=== PATIENT | male | born 1955 | race Two or more races ===

== ENCOUNTER 2018-09-14 10:26 | Emergency (ER) | payer OTHER ==
[2018-09-14 11:17] VITALS: BP 136/72; PULSE 68; TEMP 98.1; BMI 28.1
--- NOTE | 2018-09-14 11:28 | PDOC ---
History of Present Illness - General Chief Complaint: Rash Stated Complaint: WOUND Time Seen by Provider: 09/14/18 11:02 - History of Present Illness Initial Comments: 09/14/18 11:32 63-year-old male without comorbidities presents for evaluation of inability to retract the foreskin with painful areas at the foreskin. He has no systemic symptoms and no inability to urinate or dysuria. Past History - Past Medical History Allergies/Adverse Reactions: Allergies Allergy/AdvReac Type Severity Reaction Status Date / Time No Known Allergies Allergy Verified 09/14/18 11:04 Home Medications: Ambulatory Orders Desonide 60 gm TP BID 5 Days #1 cream..g. 09/14/18 Cardiac Disorders: No COPD: No CHF: No Diabetes: Yes (borderline) - Surgical History Cardiac Surgery: No - Immunization History Td Vaccination: No Immunization Up to Date: No (needs tetanus) - Suicide/Smoking/Psychosocial Hx Smoking Status: No Smoking History: Current some day smoker Have you smoked in the past 12 months: No Number of Cigarettes Smoked Daily: 0 Information on smoking cessation initiated: No Hx Alcohol Use: No Drug/Substance Use Hx: No Review of Systems - Review of Systems : Yes: See HPI. No: Burning, Dysuria, Discharge, Incontinence, Pain *Physical Exam - Vital Signs Last Vital Signs Temp Pulse Resp BP Pulse Ox 98.1 F 68 16 136/72 98 09/14/18 10:33 09/14/18 10:33 09/14/18 10:33 09/14/18 10:33 09/14/18 10:33 - Physical Exam Comments: 09/14/18 11:32 External genitalia appears normal. There are superficial excoriations at the dorsum of the foreskin which is unable to be retracted over the glans penis normal skin color and temperature no indication of infection Moderate Sedation - Procedure Monitoring Vital Signs: Procedure Monitoring Vital Signs Temperature 98.1 F 09/14/18 10:33 Pulse Rate 68 09/14/18 10:33 Respiratory Rate 16 09/14/18 10:33 Blood Pressure 136/72 09/14/18 10:33 O2 Sat by Pulse Oximetry (%) 98 09/14/18 10:33 Medical Decision Making - Medical Decision Making 09/14/18 11:21 Urology called d/w Dr Rizo f/u as out pt with steroid cream from ER *DC/Admit/Observation/Transfer Diagnosis at time of Disposition: Phimosis - Discharge Dispostion Disposition: HOME Condition at time of disposition: Stable Decision to Admit order: No - Prescriptions Prescriptions: Desonide 60 gm TP BID 5 Days #1 cream..g. - Referrals Referrals: Abdon Zhang MD., [Staff Physician] - - Patient Instructions Additional Instructions: Please use a steroid cream as directed and follow up with urology in 1-2 days for further evaluation and treatment options. Return to the emergency room should symptoms worsen or if you are unable to urinate. Please also follow-up with your primary care physician there is glucose in the urine which may indicate an onset of diabetes. - Post Discharge Activity
[2018-09-14 11:38] LABS: URINE APPEARANCE CLEAR; URINE BILIRUBIN NEGATIVE (<2.0 mg/dL); URINE COLOR LTYELLOW; URINE GLUCOSE (UA) 3+ (NEGATIVE); URINE KETONE NEGATIVE (NEGATIVE); URINE LEUK ESTERASE NEGATIVE (NEGATIVE); URINE NITRITE NEGATIVE (NEGATIVE); URINE PROTEIN NEGATIVE (NEGATIVE); URINE UROBILINOGEN NEGATIVE mg/dL (0.2-1.0)
== END 2018-09-14 11:57 | disposition home or self-care (01) ==
LOC: JERFT 10:26
DX: N47.1 Phimosis (principal)
CPT/HCPCS: 81003; 87086; 87186; 99281-25

== ENCOUNTER 2019-03-21 08:15 | Emergency (ER) | payer OTHER ==
[2019-03-21 08:23] VITALS: BP 135/68; PULSE 71; TEMP 98.3; BMI 28.1
[2019-03-21] MEDS ORDERED: SUCRALFATE 1 GM/10 ML UNIT DOSE CUPS PO ONE (08:33)
[2019-03-21] MEDS ORDERED: MAG HYDROX/AL HYDROX/SIMETH 30 ML UNIT-DOSE CUP PO ONE (08:33)
[2019-03-21] MEDS ORDERED: FAMOTIDINE 20 MG/50 ML IVPB 20 MG/50 ML MG IVPB ONE ×2 (08:33→08:41)
[2019-03-21] MEDS ORDERED: MAG HYDROX/AL HYDROX/SIMETH 30 ML UNIT-DOSE CUP ONE (08:41)
[2019-03-21] MEDS ORDERED: SUCRALFATE 1 GM TABLET (FP) ONE (08:41)
--- NOTE | 2019-03-21 08:48 | PDOC ---
History of Present Illness - History of Present Illness Initial Comments: 03/21/19 08:44 64 yo M with h/o DM, BACILIO who p/w retrosternal chest discomfort. Patient reports acute episode of severe, burning, unremitting, retrosternal chest discomfort. Pain worse with PO food intake, non radiating, non positional. Pain similar to pain in past. Has longstanding h/o GERD. Not on medication. Does not f/w GI. Also endorses "dry throat." Patient denies MONTESINOS, vision change, palpitations, cough, wheezing, orthopena, PND , leg swelling/pain, N/V, F,C, SOB, urinary complaints, hematuria, BPR, diarrhea , constipation, lightheadedness, weakness, sensory changes. PMHx: as noted above. Denies CAD/HI, stent placement, CABG, endoscopy, PE/DVT ROS: as noted SHx: tobacco use 20+ years. Denies Etoh, IVDA. Allergies: NKDA <Jax Bonilla - Last Filed: 03/21/19 10:34> <Marianna Blankenship - Last Filed: 03/21/19 10:43> - General Chief Complaint: Chest Pain Stated Complaint: CHEST PAIN Time Seen by Provider: 03/21/19 08:33 Past History - Past Medical History Cardiac Disorders: No COPD: No CHF: No Diabetes: Yes (borderline) - Surgical History Cardiac Surgery: No - Immunization History Td Vaccination: No Immunization Up to Date: No (needs tetanus) - Suicide/Smoking/Psychosocial Hx Smoking Status: No Smoking History: Never smoked Have you smoked in the past 12 months: No Number of Cigarettes Smoked Daily: 0 Hx Alcohol Use: No Drug/Substance Use Hx: No <Jax Bonilla - Last Filed: 03/21/19 10:34> <Marianna Blankenship - Last Filed: 03/21/19 10:43> - Past Medical History Allergies/Adverse Reactions: Allergies Allergy/AdvReac Type Severity Reaction Status Date / Time No Known Allergies Allergy Verified 03/21/19 08:24 Home Medications: Ambulatory Orders Desonide 60 gm TP BID 5 Days #1 cream..g. 09/14/18 Ranitidine [Zantac -] 150 mg PO BID PRN #30 tablet MDD 2 tab 03/21/19 Review of Systems - Review of Systems Comments:: 03/21/19 08:45 GENERAL/CONSTITUTIONAL: No fever or chills. No weakness. HEAD, EYES, EARS, NOSE AND THROAT: No change in vision. No ear pain or discharge. No sore throat. CARDIOVASCULAR: + chest pain. no shortness of breath RESPIRATORY: No cough, wheezing, or hemoptysis. GASTROINTESTINAL: No nausea, vomiting, diarrhea or constipation. GENITOURINARY: No dysuria, frequency, or change in urination. MUSCULOSKELETAL: No joint or muscle swelling or pain. No neck or back pain. SKIN: No rash NEUROLOGIC: No headache, vertigo, loss of consciousness, or change in strength/ sensation. ENDOCRINE: No increased thirst. No abnormal weight change HEMATOLOGIC/LYMPHATIC: No anemia, easy bleeding, or history of blood clots. ALLERGIC/IMMUNOLOGIC: No hives or skin allergy. <Jax Bonilla - Last Filed: 03/21/19 10:34> *Physical Exam - Vital Signs Last Vital Signs Temp Pulse Resp BP Pulse Ox 98.3 F 71 18 135/68 99 03/21/19 08:22 03/21/19 08:22 03/21/19 08:22 03/21/19 08:22 03/21/19 08:22 - Physical Exam Comments: 03/21/19 08:45 GENERAL: Awake, alert, and fully oriented, in no acute distress HEAD: No signs of trauma, normocephalic, atraumatic EYES: PERRLA, EOMI, sclera anicteric, conjunctiva clear ENT: Hearing grossly normal, nares patent, oropharynx clear without exudates. Moist mucosa NECK: Normal ROM, supple, no lymphadenopathy, JVD, or masses LUNGS: No distress, speaks full sentences, clear to auscultation bilaterally HEART: Regular rate and rhythm, normal S1 and S2, no murmurs, rubs or gallops, peripheral pulses normal and equal bilaterally. ABDOMEN: Soft, nontender, normoactive bowel sounds. No guarding, no rebound. No masses EXTREMITIES : Normal inspection, Normal range of motion, no edema. No clubbing or cyanosis. NEUROLOGICAL: Cranial nerves II through XII grossly intact. Normal speech, normal gait, no focal sensorimotor deficits SKIN: Warm, Dry, normal turgor, no rashes or lesions noted <Jax Bonilla - Last Filed: 03/21/19 10:34> - Vital Signs Last Vital Signs Temp Pulse Resp BP Pulse Ox 98.3 F 71 18 135/68 99 03/21/19 08:22 03/21/19 08:22 03/21/19 08:22 03/21/19 08:22 03/21/19 08:22 <PattieMarianna Hai - Last Filed: 03/21/19 10:43> ED Treatment Course - LABORATORY CBC & Chemistry Diagram: 03/21/19 08:38 03/21/19 08:38 - RADIOLOGY Radiology Studies Ordered: Category Date Time Status CXRPORT [CHEST X-RAY PORTABLE*] [RAD] Stat Radiology 03/21/19 08:33 Ordered - Medications Given in the ED: ED Medications Discontinued Medications Generic Name Dose Route Start Last Admin Trade Name Freq PRN Reason Stop Dose Admin Al Hydroxide/Mg Hydroxide 30 ml 03/21/19 08:33 03/21/19 08:42 Mylanta Oral Suspension - PO 03/21/19 08:34 30 ml ONCE ONE Administration Sucralfate 1 gm 03/21/19 08:33 03/21/19 08:42 Carafate Oral Suspension - PO 03/21/19 08:34 1 gm ONCE ONE Administration <Jax Bonilla - Last Filed: 03/21/19 10:34> - LABORATORY CBC & Chemistry Diagram: 03/21/19 08:38 03/21/19 08:38 - ADDITIONAL ORDERS Additional order review: Laboratory Results 03/21/19 08:38 Sodium 141 Potassium 4.3 Chloride 112 H Carbon Dioxide 23 Anion Gap 7 L BUN 18.2 H Creatinine 0.8 Est GFR (CKD-EPI)AfAm 107.89 Est GFR (CKD-EPI)NonAf 93.09 Random Glucose 273 H Calcium 8.3 L Total Bilirubin 0.7 AST 25 ALT 24 Alkaline Phosphatase 63 Creatine Kinase 206 Creatine Kinase Index 1.2 CK-MB (CK-2) 2.5 Troponin I < 0.02 Total Protein 6.5 Albumin 3.3 L 03/21/19 08:38 RBC 4.38 MCV 89.2 MCHC 34.3 RDW 13.1 MPV 9.1 D Neutrophils % 64.5 Lymphocytes % 23.1 Monocytes % 9.1 Eosinophils % 2.4 Basophils % 0.9 - Medications Given in the ED: ED Medications Discontinued Medications Generic Name Dose Route Start Last Admin Trade Name Dylan PRN Reason Stop Dose Admin Al Hydroxide/Mg Hydroxide 30 ml 03/21/19 08:33 03/21/19 08:42 Mylanta Oral Suspension - PO 03/21/19 08:34 30 ml ONCE ONE Administration Famotidine/Sodium Chloride 20 mg in 50 mls @ 100 mls/hr 03/21/19 08:33 08:42 Pepcid 20 Mg Premixed Ivpb - IVPB 03/21/19 09:02 100 mls/hr ONCE ONE Administration Sucralfate 1 gm 03/21/19 08:33 03/21/19 08:42 Carafate Oral Suspension - PO 03/21/19 08:34 1 gm ONCE ONE Administration <Marianna Blankenship - Last Filed: 03/21/19 10:43> Medical Decision Making - Medical Decision Making 03/21/19 08:45 64 yo M with h/o DM, BACILIO who p/w retrosternal chest discomfort/burning. Vitals wnl, AF, A&Ox3. Physical exam unremarkable. ACS/HI r/o. R/o PNA. Low risk PE based on Wells criteria. DDx: GERD/Esophagitis, gastriits, pancreaitits, biliary dz., pleural effusion. Physical exam unremarkable. BP equal symmetric BL UE. Patient neurologically intact. Provide analgesic control, reassess. Ed Course: 03/21/19 10:07 Laboratory Tests 03/21/19 03/21/19 08:38 08:38 WBC 6.2 Hgb 13.4 Hct 39.1 Plt Count 200 BUN 18.2 H Est GFR (CKD-EPI)AfAm 107.89 Troponin I < 0.02 03/21/19 10:11 EKG: NSR with absent YOBANI, STD. Nml interval duration and axis. Nml R wave progression. Absent Q waves. CXR: No acute pathology 03/21/19 10:15 Advised to f/u GI symptoms improved with Famotidine, Maloox, Carafate tolerating PO intake Patient stable for d/c with return precautions <Jax Bonilla - Last Filed: 03/21/19 10:34> *DC/Admit/Observation/Transfer <Jax Bonilla - Last Filed: 03/21/19 10:34> <Marianna Blankenship - Last Filed: 03/21/19 10:43> Diagnosis at time of Disposition: Epigastric abdominal pain - Discharge Dispostion Condition at time of disposition: Stable - Prescriptions Prescriptions: Ranitidine [Zantac -] 150 mg PO BID PRN #30 tablet MDD 2 tab PRN Reason: Mild Pain - Referrals Referrals: Siri Livingston MD [Primary Care Provider] - Reed Page MD [Staff Physician] - Eduardo Pritchett DO [Staff Physician] - Jostin Barba MD [Staff Physician] - Venancio Beltrán MD [Staff Physician] - Robinson Hernández MD [Staff Physician] - - Patient Instructions Printed Discharge Instructions: [place] Diet, DI for Gastritis, DI for Atypical Chest Pain Additional Instructions: Please return to the emergency department with any new or worsening symptoms or concerns. Please follow up with your core blower and primary care physician within 72 hours. Can take Ranitidine twice a day as needed for symptoms. You may also take pepcid daily and maalox or mylanta three to four times a day with your meals for the heart burn symptoms Avoid spicy or fatty foods. Drink plenty of fluids, soups and broth. Important to stay hydrated. Avoid triggers that could precipitate the abdominal pain, nausea and vomiting. This could be reflux, gastritis or viral infection that should self resolve with time Follow up with a core blower and primary doctor if symptoms persist. - Post Discharge Activity
[2019-03-21 09:07] LABS: BASO % 0.9 % (0-2.0); EOS % 2.4 % (0-4.5); HEMATOCRIT 39.1 % (35.4-49); HEMOGLOBIN 13.4 GM/dL (11.7-16.9); LYMPH % 23.1 % (8-40); MCH 30.6 pg (25.7-33.7); MCHC 34.3 g/dl (32.0-35.9); MEAN CELL VOLUME 89.2 fl (80-96); MEAN PLT VOLUME 9.1 fl (7.5-11.1); MONO % 9.1 % (3.8-10.2); NEUT % 64.5 % (42.8-82.8); RBC 4.38 M/mm3 (4.00-5.60); RDW 13.1 % (11.9-15.9); WHITE BLOOD COUNT 6.2 K/mm3 (4.0-10.0)
[2019-03-21 09:34] LABS: PLATELET COUNT 200 K/MM3 (134-434)
[2019-03-21 09:40] LABS: ALBUMIN 3.3 g/dl (3.4-5.0); ALK PHOS 63 U/L (45-117); ANION GAP 7 MMOL/L (8-16); BILIRUBIN,TOTAL 0.7 mg/dL (0.2-1); BLOOD UREA NITROGEN 18.2 mg/dL (7-18); CALCIUM 8.3 mg/dL (8.5-10.1); CHLORIDE 112 mmol/L (98-107); CO2 23 mmol/L (21-32); CREATININE 0.8 mg/dL (0.55-1.3); GLUCOSE,RANDOM 273 mg/dL (74-106); POTASSIUM 4.3 mmol/L (3.5-5.1); SGOT/AST 25 U/L (15-37); SGPT/ALT 24 U/L (13-61); SODIUM 141 mmol/L (136-145); TOT PROT 6.5 g/dl (6.4-8.2)
--- NOTE | 2019-03-21 10:43 | PDOC ---
Documentation entered by Veronika Reich SCRIBE, acting as scribe for Marianna Blankenship MD. Marianna Blankenship MD: This documentation has been prepared by the scribe, Veronika Reich SCRIBE, under my direction and personally reviewed by me in its entirety. I confirm that the documentation accurately reflects all work, treatment, procedures, and medical decision making performed by me. Attending Attestation - Resident Resident Name: Oziel Bonillason - ED Attending Attestation I have performed the following: I have examined & evaluated the patient, The case was reviewed & discussed with the resident, I agree w/resident's findings & plan, Exceptions are as noted - HPI HPI: 03/21/19 10:34 The patient is a 64-year-old male, with a past medical history of DM and BACILIO, who presents to the ED with substernal chest pain/epigastric pain beginning last night in the evening. The patient describes the pain as constant, burning in sensation, with radiation up to his throat, and exacerbated with food intake. He has experienced similar symptoms in the past, but never this severe. He reports he has a history of GERD, but is not on any medications. Allergies: NKDA Social History: Current smoker (20+ years). Denies any alcohol or drug use. 03/21/19 10:37 - Physicial Exam PE: 03/21/19 10:35 NAD, well appearing, EOMI, PERRL, MMM, nl conjunctiva, anicteric; oropharynx clear, neck supple. lungs clear, RRR, abdomen soft nontender. Back nontender. ROSSI x4, no focal neuro deficits. No peripheral edema. normal color for ethnicity , WWP. 03/21/19 10:37 - Medical Decision Making 03/21/19 10:37 See HPI for details. Prior notes reviewed, including admissions, discharges and consultations. Vital signs reviewed, wnl. DDx abdominal pain: Renal colic, biliary colic, metabolic/electrolyte derangements. GERD, PUD, esophageal spasm, pancreatitis, hepatitis, ACS, angina, arrhythmia laboratory results and imaging reviewed, basic labs and lytes wnl, LFTs/lipase_ normal CXR_no acute chest pathology Cardiac panel_negative, reassuring, as sx >6 hours and resolved, doubt cardiac EKG normal sinus rhythm at 70bpm, no interval abnormalities, narrow QRS, ST and T wave segments and morphology normal. ED course -interventions: GI cocktail, fluids and reassess feels improved clinically, abdomen soft NTND, benign. no cp, heart score low, one trop sufficient given duration and improvement. supportive care, GERD precautions and diet and GI followup for EGD/further testing in case of ulcers, spasms/stricture, obstruction. Pt to be discharged in stable condition. Patient and family made aware of clinical impression, treatment recommendations and disposition plan, return precautions discussed (including but not limited to new or persistent/worsening symptoms, pain, fevers, or signs of infection, chest pain, respiratory distress , inability to tolerate oral intake, dehydration, syncope, or neurologic changes ). Follow up with PMD and/or GI specialist as recommended, follow up information provided, take medications as instructed for duration of time. continue with supportive care, avoid triggers and precipitants. All questions answered to patient's satisfaction and expressed understanding and comfort with this. At the time of discharge, the patient is alert, clinically improved, tolerating po and verbalizes understanding of instructions, satisfied with the care received and felt comfortable with the plan. Patient does not suffer from an acute life-threatening medical condition at this time and is safe for outpatient follow-up. 03/21/19 10:39 Heart Score/ECG Review #1 ECG reviewed & interpreted by me at: 08:10 General ECG Interpretation: Sinus Rhythm, Normal Rate, Normal Intervals 03/21/19 10:38 EKG normal sinus rhythm at 70bpm, no interval abnormalities, narrow QRS, ST and T wave segments and morphology normal.
--- NOTE | 2019-03-22 00:16 | EKG ---
Test Reason : Blood Pressure : / mmHG Vent. Rate : 070 BPM Atrial Rate : 070 BPM P-R Int : 138 ms QRS Dur : 100 ms QT Int : 408 ms P-R-T Axes : 074 075 071 degrees QTc Int : 440 ms POOR DATA QUALITY, INTERPRETATION MAY BE ADVERSELY AFFECTED NORMAL SINUS RHYTHM NORMAL ECG NO PREVIOUS ECGS AVAILABLE Confirmed by MD Miles, Reggie ([id number]) on 03/22/2019 12:15:53 AM Referred By: Confirmed By:Reggie Aquino MD
== END 2019-03-21 10:47 | disposition home or self-care (01) ==
LOC: JER 08:15
PROC: 3E033GC Introduction of Other Therapeutic Substance into Peripheral Vein, Percutaneous Approach (ICD-10-PCS; principal; 2019-03-21)
DX: R10.13 Epigastric pain (principal); E11.9 Type 2 diabetes mellitus without complications; G47.33 Obstructive sleep apnea (adult) (pediatric)
CPT/HCPCS: 36415; 71045-TC-FY; 80053; 82550; 82553; 84484; 85025; 93005; 93010; 96365; 99284-25

== ENCOUNTER 2020-05-31 15:51 | Emergency (ER) | payer OTHER ==
--- NOTE | 2020-05-31 16:09 | PDOC ---
Rapid Medical Evaluation Time Seen by Provider: 05/31/20 16:05 Medical Evaluation: Allergies Allergy/AdvReac Type Severity Reaction Status Date / Time No Known Allergies Allergy Verified 05/31/20 16:06 05/31/20 16:07 I performed a brief in-person evaluation of this patient. Pt is a 65 y/o male who presents with penile swelling. He states he has some suprapubic pain as well. His partner was just diagnosed with papilloma. He would like to be tested for HIV. Pertinent physical exam findings: Mild suprapubic abdominal tenderness I have ordered the following: ua, ucx, gc/chlamydia, hiv Patient to proceed to ED for further evaluation. Discharge Disposition - Diagnosis Penile swelling - Referrals - Patient Instructions - Post Discharge Activity
[2020-05-31] MEDS ORDERED: AZITHROMYCIN 250 MG TABLET PO ONE (16:15)
[2020-05-31 16:29] VITALS: BP 164/89; PULSE 72; TEMP 98.9; BMI 28.1
[2020-05-31] MEDS ORDERED: AZITHROMYCIN 250 MG TABLET ONE (16:32)
[2020-05-31] MEDS ORDERED: LIDOCAINE HCL 1%, 10 MG/ML (20ML VIAL) ONE (16:33)
[2020-05-31 17:24] LABS: EPI CELLS 10 /uL (0-25.1); HYALINE CASTS 1 /uL (0-3.1); URINE APPEARANCE CLEAR; URINE BACTERIA 119 /uL (0-1359); URINE BILIRUBIN NEGATIVE (NEGATIVE); URINE COLOR YELLOW; URINE GLUCOSE (UA) 3+ (NEGATIVE); URINE KETONE TRACE (NEGATIVE); URINE LEUK ESTERASE NEGATIVE (NEGATIVE); URINE NITRITE NEGATIVE (NEGATIVE); URINE PROTEIN 1+ (NEGATIVE); URINE RBC 7 /uL (0-23.9); URINE WBC 40 /uL (0-25.8)
[2020-05-31 17:57] LABS: URINE CRYSTALS MODERATE CA OX /hpf
--- NOTE | 2020-05-31 18:44 | PDOC ---
History of Present Illness - General Chief Complaint: Penile Drainage Stated Complaint: STD testing Time Seen by Provider: 05/31/20 16:05 - History of Present Illness Initial Comments: 05/31/20 18:40 65-year-old male with a past medical history of diabetes presents for evaluation of penis pain. His partner was diagnosed with HPV. He has no dysuria concerned about STDs and has complaints of multiple excoriations around the penis Past History - Medical History Allergies/Adverse Reactions: Allergies Allergy/AdvReac Type Severity Reaction Status Date / Time No Known Allergies Allergy Verified 05/31/20 16:07 Home Medications: Ambulatory Orders Desonide 60 gm TP BID 5 Days #1 cream..g. 09/14/18 Ranitidine [Zantac -] 150 mg PO BID PRN #30 tablet MDD 2 tab 03/21/19 Dextran 70/Hypromellose [Artificials Tears Drops] 30 ml OP TID PRN #1 drops 12/09/19 Ocular Lubricant Ophth Oint [Lacri-Lube Eye Ointment -] 1 applic TP DAILY #1 tube 12/09/19 Valacyclovir HCl [Valtrex -] 1,000 mg PO TID 7 Days #21 tablet 12/09/19 predniSONE [Deltasone -] 60 mg PO DAILY #21 tablet 12/09/19 Valacyclovir HCl [Valtrex -] 1,000 mg PO TID 7 Days #21 tablet 05/31/20 Cardiac Disorders: No COPD: No CHF: No Diabetes: Yes (borderline) - Surgical History Cardiac Surgery: No - Immunization History Td Vaccination: No Immunization Up to Date: No (needs tetanus) - Psycho-Social/Smoking History Smoking Status: No Smoking History: Never smoked Have you smoked in the past 12 months: No Number of Cigarettes Smoked Daily: 0 - Substance Abuse Hx (Audit-C & DAST Scrn) How often the patient has a drink containing alcohol: Never Score: In Men: 4 or > Positive; In Women: 3 or > Positive: 0 Screen Result (Pos requires Nsg. Audit-10AR): Negative In the last yr the pt used illegal drug/Rx for NonMed reason: No Score: Yes response is considered Positive: 0 Screen Result (Positive result requires Nsg. DAST-10): Negative Review of Systems - Review of Systems Constitutional: No: Fever : Yes: See HPI. No: Burning, Dysuria, Discharge, Testicular Pain *Physical Exam - Vital Signs Last Vital Signs Temp Pulse Resp BP Pulse Ox 98.9 F 72 16 164/89 100 05/31/20 16:07 05/31/20 16:07 05/31/20 16:07 05/31/20 16:07 05/31/20 16:07 - Physical Exam 05/31/20 18:40 External genitalia is grossly normal testicles are normal shape and size and nontender. Penis is uncircumcised. Foreskin is retracted. There appears to be a small vesicular lesion on the arreola. Multiple superficial excoriations around the arreola. ED Treatment Course - ADDITIONAL ORDERS Additional order review: Laboratory Results 05/31/20 16:55 Urine Color Yellow Urine Appearance Clear Urine pH 5.0 Ur Specific [place] 1.042 H Urine Protein 1+ H Urine Glucose (UA) 3+ H Urine Ketones Trace H Urine Blood Negative Urine Nitrite Negative Urine Bilirubin Negative Urine Urobilinogen 1.0 Ur Leukocyte Esterase Negative Urine WBC (Auto) 40 Urine RBC (Auto) 7 Urine Casts (Auto) 1 U Epithel Cells (Auto) 10 Urine Crystals (Auto) Moderate ca ox Urine Bacteria (Auto) 119 - Medications Given in the ED: ED Medications Discontinued Medications Generic Name Dose Route Start Last Admin Trade Name Dylan PRN Reason Stop Dose Admin Azithromycin 1,000 mg 05/31/20 16:15 05/31/20 16:20 Zithromax - PO 05/31/20 16:16 1,000 mg ONCE ONE Administration Ceftriaxone Sodium 250 mg 05/31/20 16:15 05/31/20 16:20 Rocephin - IM 05/31/20 16:16 250 mg ONCE ONE Administration Medical Decision Making - Medical Decision Making 05/31/20 18:42 We will do HIV panel GC chlamydia treatment and testing. RPR was done and negative. Ceftriaxone and Zithromax follow-up with primary care physician will call with HIV results 05/31/20 18:42 I have reviewed the pathophysiology with the patient. They are in agreement with the treatment plan all questions were answered to their satisfaction. Understanding for follow-up without fail was also conveyed to the patient. Again they are in agreement. Discharge - Discharge Information Problems reviewed: Yes Clinical Impression/Diagnosis: Penile swelling, Concern about STD in male without diagnosis, HPV in male Disposition: HOME - Admission No - Additional Discharge Information Prescriptions: Valacyclovir HCl [Valtrex -] 1,000 mg PO TID 7 Days #21 tablet - Follow up/Referral Referrals: Ki Garza MD [Staff Physician] - - Patient Discharge Instructions Additional Instructions: Return to the emergency room for worsening symptoms and without fail finish the antiviral medication as prescribed. You were treated for gonorrhea and chlamydia in the emergency room. HIV test is pending syphilis is negative. Follow-up with primary care physician in 2 to 3 days without fail. Return to the emergency room for further issues - Post Discharge Activity
== END 2020-05-31 18:54 | disposition home or self-care (01) ==
LOC: JERFT 15:51
DX: N48.29 Other inflammatory disorders of penis (principal)
CPT/HCPCS: 36415; 81003; 86780; 87086; 87389; 87491; 87591; 99284-25

== ENCOUNTER 2020-12-07 11:45 | Emergency (ER) | payer OTHER ==
[2020-12-07 11:59] VITALS: BP 155/90; PULSE 88; TEMP 98.3; BMI 28.1
== END 2020-12-07 12:48 | disposition home or self-care (01) ==
LOC: JER 11:45
DX: J02.9 Acute pharyngitis, unspecified (principal)
CPT/HCPCS: 99283-25; C9803; U0003

== ENCOUNTER 2020-12-11 16:41 | Emergency (ER) | payer OTHER ==
[2020-12-11] MEDS ORDERED: ACETAMINOPHEN 500 MG TABLET (FP) PO ONE (17:02)
[2020-12-11] MEDS ORDERED: ACETAMINOPHEN 500 MG TABLET (FP) ONE (17:03)
[2020-12-11] MEDS ORDERED: BAMLANIVIMAB 700 MG, ETESEVIMAB 1,400 MG in SODIUM CHLORIDE 250 ML IVPB ONE (18:01)
[2020-12-11 18:55] LABS: BASO % 0.3 % (0-2.0); EOS % 0.1 % (0-4.5); HEMATOCRIT 42.3 % (35.4-49); HEMOGLOBIN 14.7 GM/dL (11.7-16.9); MCH 30.5 pg (25.7-33.7); MCHC 34.7 g/dl (32.0-35.9); MEAN CELL VOLUME 87.8 fl (80-96); MEAN PLT VOLUME 9.6 fl (7.5-11.1); MONO % 10.1 % (3.8-10.2); NEUT % 73.5 % (42.8-82.8); PLATELET COUNT 179 K/MM3 (134-434); RBC 4.82 M/mm3 (4.00-5.60); RDW 12.9 % (11.9-15.9); WHITE BLOOD COUNT 6.5 K/mm3 (4.0-10.0)
[2020-12-11 19:17] LABS: POTASSIUM 4.6 mmol/L (3.5-5.1)
[2020-12-11 19:22] LABS: ALBUMIN 3.4 g/dl (3.4-5.0); BLOOD UREA NITROGEN 14.4 mg/dL (7-18); CALCIUM 8.1 mg/dL (8.5-10.1)
[2020-12-11 19:26] LABS: BILIRUBIN,TOTAL 0.6 mg/dL (0.2-1); TOT PROT 7.3 g/dl (6.4-8.2)
[2020-12-11 19:43] VITALS: TEMP 99
[2020-12-11 19:53] LABS: PLATELET ESTIMATE ADEQUATE
[2020-12-11 22:16] VITALS: BP 126/78; PULSE 88
== END 2020-12-11 22:15 | disposition home or self-care (01) ==
LOC: JER 16:41 → JCOVINFU 16:41
DX: U07.1 COVID-19 (principal)
CPT/HCPCS: 36415; 71046-TC-FY; 80053; 85025; 99284-25; M0239; Q0239; Q0245

== ENCOUNTER 2021-07-19 14:21 | Emergency (ER) | payer OTHER ==
[2021-07-19 14:42] VITALS: BP 140/71; PULSE 66; TEMP 97.8; BMI 27.8
== END 2021-07-19 15:35 | disposition home or self-care (01) ==
LOC: JERFT 14:21
DX: N47.6 Balanoposthitis (principal)
CPT/HCPCS: 36415; 87070; 87077; 87205; 87252; 87255; 87491; 87591; 87661; 99283-25

== ENCOUNTER 2021-10-25 04:44 | Day surgery (SDC) | payer OTHER ==
[2021-10-22 16:39] VITALS: BMI 28.5
[2021-10-25 10:39] VITALS: TEMP 98.6
[2021-10-25 11:21] VITALS: BP 122/75; PULSE 60
== END 2021-10-25 13:47 | disposition home or self-care (01) ==
LOC: JASU-ENDO 04:44
PROVIDERS: ATTEND Internal Medicine Gastroenterology
PROC: 0DB78ZX Excision of Stomach, Pylorus, Via Natural or Artificial Opening Endoscopic, Diagnostic (ICD-10-PCS; principal; 2021-10-25 11:45)
DX: K29.50 Unspecified chronic gastritis without bleeding (principal); K21.9 Gastro-esophageal reflux disease without esophagitis; I10 Essential (primary) hypertension; E11.9 Type 2 diabetes mellitus without complications
CPT/HCPCS: 82962; 88305-TC; 88342-TC

== ENCOUNTER 2022-09-14 16:46 | Emergency (ER) | payer OTHER ==
[2022-09-14 17:07] VITALS: BP 126/82; PULSE 84; RESP 18; TEMP 98.2; BMI 26.6
[2022-09-14 18:17] LABS: BASO % 0.9 % (0-2.0); EOS % 1.6 % (0-4.5); HEMATOCRIT 45.3 % (35.4-49); HEMOGLOBIN 15.4 GM/dL (11.7-16.9); LYMPH % 19.8 % (8-40); MCH 29.5 pg (25.7-33.7); MEAN CELL VOLUME 86.7 fl (80-96); MEAN PLT VOLUME 8.7 fl (7.5-11.1); MONO % 6.1 % (3.8-10.2); NEUT % 71.6 % (42.8-82.8); PLATELET COUNT 285 10^3/uL (134-434); RBC 5.23 M/mm3 (4.00-5.60); WHITE BLOOD COUNT 7.6 K/mm3 (4.0-10.0)
[2022-09-14 18:20] LABS: EPI CELLS 2 /uL (0-25.1); HYALINE CASTS 4 /uL (0-3.1); PH,URINE 5.5 (5.0-8.0); URINE APPEARANCE CLEAR; URINE BACTERIA 35 /uL (0-1359); URINE BILIRUBIN NEGATIVE (NEGATIVE); URINE COLOR YELLOW; URINE GLUCOSE (UA) 3+ (NEGATIVE); URINE KETONE NEGATIVE (NEGATIVE); URINE LEUK ESTERASE 1+ (NEGATIVE); URINE NITRITE NEGATIVE (NEGATIVE); URINE PROTEIN 2+ (NEGATIVE); URINE RBC 245 /uL (0-23.9); URINE UROBILINOGEN 0.2 mg/dL (0.2-1.0); URINE WBC 538 /uL (0-25.8)
[2022-09-14 18:27] LABS: BLOOD UREA NITROGEN 19.5 mg/dL (7-18); CALCIUM 9.1 mg/dL (8.5-10.1)
[2022-09-14 18:31] LABS: CREATININE 0.9 mg/dL (0.55-1.3)
[2022-09-14] MEDS ORDERED: CIPROFLOXACIN 500 MG TABLET (RESTRICTED TO ID) PO ONE (18:47)
== END 2022-09-14 19:06 | disposition home or self-care (01) ==
LOC: JERFT 16:46
DX: M54.50 Low back pain, unspecified (principal)
CPT/HCPCS: 36415; 80048; 81003; 85025; 87086; 99283-25

== ENCOUNTER 2022-09-22 10:30 | Emergency (ER) | payer OTHER ==
[2022-09-22 10:41] VITALS: TEMP 97.7; BMI 27.3
[2022-09-22] MEDS ORDERED: KETOROLAC TROMETHAMINE 30 MG/1 ML VIAL IVPUSH ONE (11:28)
[2022-09-22] MEDS ORDERED: KETOROLAC TROMETHAMINE 30 MG/1 ML VIAL ONE (11:38)
[2022-09-22 12:15] LABS: BASO % 0.6 % (0-2.0); EOS % 2.4 % (0-4.5); HEMATOCRIT 46.2 % (35.4-49); HEMOGLOBIN 15.6 GM/dL (11.7-16.9); LYMPH % 42.1 % (8-40); MCH 29.5 pg (25.7-33.7); MCHC 33.7 g/dl (32.0-35.9); MEAN CELL VOLUME 87.6 fl (80-96); MONO % 9.5 % (3.8-10.2); NEUT % 45.4 % (42.8-82.8); PLATELET COUNT 273 10^3/uL (134-434); RBC 5.28 M/mm3 (4.00-5.60); WHITE BLOOD COUNT 7.3 K/mm3 (4.0-10.0)
[2022-09-22 12:19] LABS: EPI CELLS 18 /uL (0-25.1); HYALINE CASTS 1 /uL (0-3.1); PH,URINE 5.5 (5.0-8.0); URINE APPEARANCE CLEAR; URINE BACTERIA 58 /uL (0-1359); URINE BILIRUBIN NEGATIVE (NEGATIVE); URINE COLOR YELLOW; URINE GLUCOSE (UA) 3+ (NEGATIVE); URINE KETONE TRACE (NEGATIVE); URINE LEUK ESTERASE NEGATIVE (NEGATIVE); URINE NITRITE NEGATIVE (NEGATIVE); URINE PROTEIN 3+ (NEGATIVE); URINE RBC 140 /uL (0-23.9)
[2022-09-22 12:42] LABS: CALCIUM 9.8 mg/dL (8.5-10.1)
[2022-09-22 12:43] LABS: ALBUMIN 3.8 g/dl (3.4-5.0); BLOOD UREA NITROGEN 14.2 mg/dL (7-18)
[2022-09-22 12:46] LABS: CREATININE 0.9 mg/dL (0.55-1.3)
[2022-09-22 12:47] LABS: TOT PROT 7.6 g/dl (6.4-8.2)
[2022-09-22 12:48] LABS: BILIRUBIN,TOTAL 0.4 mg/dL (0.2-1)
[2022-09-22 13:58] VITALS: BP 138/78; PULSE 78; RESP 18
[2022-09-22 19:56] LABS: URINE WBC 236 /uL (0-25.8)
== END 2022-09-22 13:58 | disposition home or self-care (01) ==
LOC: JERFT 10:30
PROC: 3E0333Z Introduction of Anti-inflammatory into Peripheral Vein, Percutaneous Approach (ICD-10-PCS; principal; 2022-09-22)
DX: N20.0 Calculus of kidney (principal)
CPT/HCPCS: 36415; 74176-TC; 80053; 81003; 85025; 87086; 99284-25

== ENCOUNTER 2022-11-08 04:25 | Day surgery (SDC) | payer OTHER ==
[2022-11-06 12:30] VITALS: BMI 28.1
[2022-11-08] MEDS ORDERED: PROPOFOL 20 ML ONE (12:02)
[2022-11-08] MEDS ORDERED: MIDAZOLAM HCL 2 MG/2 ML SINGLE DOSE VIAL ONE (12:03)
[2022-11-08] MEDS ORDERED: ONDANSETRON 4 MG/2 ML VIAL ONE (12:34)
[2022-11-08] MEDS ORDERED: DEXAMETHASONE SOD PHOSPHATE 4 MG/1 ML VIAL ONE (12:34)
[2022-11-08] MEDS ORDERED: ceFAZolin SODIUM 1 GM VIAL ONE (12:36)
[2022-11-08] MEDS ORDERED: ceFAZolin SODIUM 1 GM VIAL IVPB ONE (12:43)
[2022-11-08] MEDS ORDERED: ONDANSETRON 4 MG/2 ML VIAL IVPUSH PRN (13:30)
[2022-11-08] MEDS ORDERED: oxyCODONE HCL 5 MG TABLET PO PRN (13:30)
[2022-11-08] MEDS ORDERED: hydrALAZINE HCL 20 MG/ML VIAL ONE (14:20)
[2022-11-08] MEDS ORDERED: hydrALAZINE HCL 20 MG/ML VIAL IVPUSH ONE ×2 (14:22→14:45)
[2022-11-08] MEDS ORDERED: oxyCODONE HCL 5 MG TABLET ONE ×2 (15:29→16:22)
[2022-11-08] MEDS ORDERED: oxyCODONE HCL 5 MG TABLET PO ONE ×2 (15:30→16:25)
[2022-11-08 18:11] VITALS: BP 143/75; PULSE 74; RESP 18; TEMP 97.7
[2022-11-13 12:08] LABS: CA OXALATE MONOHYDR. 10 % (.); WEIGHT 2 mg (.)
== END 2022-11-08 17:35 | disposition home or self-care (01) ==
LOC: JASU-SURG 04:25
PROVIDERS: ATTEND Urology
PROC: 0T768DZ Dilation of Right Ureter with Intraluminal Device, Via Natural or Artificial Opening Endoscopic (ICD-10-PCS; 2022-11-08)
PROC: 0TC08ZZ Extirpation of Matter from Right Kidney, Via Natural or Artificial Opening Endoscopic (ICD-10-PCS; principal; 2022-11-08 12:00)
DX: N20.0 Calculus of kidney (principal)
CPT/HCPCS: 36415; 76000-TC-FY; 82360; 82962; 88300-TC; 94760; C1747; C1758; C1769; C2617

== ENCOUNTER 2022-11-10 09:20 | Emergency (ER) | payer OTHER ==
[2022-11-10 09:33] VITALS: BP 156/80; PULSE 103; RESP 18; TEMP 97.9; BMI 28.1
== END 2022-11-10 10:33 | disposition home or self-care (01) ==
LOC: JER 09:20
DX: R10.9 Unspecified abdominal pain (principal)
CPT/HCPCS: 99283-25

== ENCOUNTER 2022-11-16 19:02 | Inpatient (IN) | payer OTHER ==
[2022-11-16] MEDS ORDERED: SODIUM CHLORIDE 0.9% 500 ML INFUS.BAG IV ONE ×2 (19:50→20:37)
[2022-11-16 20:12] LABS: BASO % 0.1 % (0-2.0); HEMATOCRIT 45.7 % (35.4-49); LYMPH % 2.2 % (8-40); MCH 30.7 pg (25.7-33.7); MCHC 32.9 g/dl (32.0-35.9); MEAN CELL VOLUME 93.4 fl (80-96); MEAN PLT VOLUME 9.6 fl (7.5-11.1); NEUT % 89.7 % (42.8-82.8); PLATELET COUNT 210 10^3/uL (134-434); RDW 14.6 % (11.9-15.9); WHITE BLOOD COUNT 16.2 K/mm3 (4.0-10.0)
[2022-11-16 20:18] LABS: EPI CELLS 9 /uL (0-25.1); HYALINE CASTS 2 /uL (0-3.1); URINE APPEARANCE CLEAR; URINE BACTERIA 81 /uL (0-1359); URINE BILIRUBIN NEGATIVE (NEGATIVE); URINE COLOR YELLOW; URINE GLUCOSE (UA) 3+ (NEGATIVE); URINE KETONE 3+ (NEGATIVE); URINE LEUK ESTERASE NEGATIVE (NEGATIVE); URINE NITRITE NEGATIVE (NEGATIVE); URINE PROTEIN 1+ (NEGATIVE); URINE UROBILINOGEN 0.2 mg/dL (0.2-1.0)
[2022-11-16 20:23] LABS: INR 1.19 (0.83-1.09); PROTHROMBIN TIME (PATIENT) 13.8 SEC (9.7-13.0)
[2022-11-16 20:26] LABS: ACTIVATED PTT 26.5 SECONDS (25.2-36.5)
[2022-11-16 20:32] LABS: PHENCYCLIDINE,URINE NEGATIVE (NEGATIVE)
[2022-11-16 20:33] LABS: CHLORIDE 99 mmol/L (98-107); COCAINE, UR NEGATIVE (NEGATIVE); OPIATES, URI NEGATIVE (NEGATIVE); SODIUM 135 mmol/L (136-145); URINE AMPHETAMINES NEGATIVE (NEGATIVE)
[2022-11-16 20:35] LABS: ALBUMIN 2.9 g/dl (3.4-5.0); ANION GAP 22 MMOL/L (8-16); BLOOD UREA NITROGEN 82.2 mg/dL (7-18); CALCIUM 9.4 mg/dL (8.5-10.1); CO2 15 mmol/L (21-32); MAGNESIUM 3.1 mg/dL (1.8-2.4)
[2022-11-16 20:38] LABS: METHADONE, UR NEGATIVE (NEGATIVE); SGOT/AST 28 U/L (15-37); SGPT/ALT 57 U/L (13-61); URINE BARBITURATES NEGATIVE (NEGATIVE); URINE BENZODIAZEPINES NEGATIVE (NEGATIVE)
[2022-11-16 20:39] LABS: CREATININE 3.4 mg/dL (0.55-1.3)
[2022-11-16 20:40] LABS: BILIRUBIN,TOTAL 0.5 mg/dL (0.2-1); TOT PROT 7.6 g/dl (6.4-8.2)
[2022-11-16 20:41] LABS: ALK PHOS 276 U/L (45-117)
[2022-11-16 20:42] LABS: GLUCOSE,RANDOM 772 mg/dL (74-106)
[2022-11-16] MEDS ORDERED: INSULIN REGULAR HUMAN 100 UNITS/ML *VIAL IVPUSH ONE (20:45)
[2022-11-16] MEDS ORDERED: ACETAMINOPHEN 1000 MG/100 ML BAG IVPB ONE (21:37)
[2022-11-16] MEDS ORDERED: PIPERACILLIN/TAZOB 2.25 GM 2.25 GM in DEXTROSE 5%-WATER - 50 ML IVPB ONE (21:38)
[2022-11-16] MEDS ORDERED: morphine CARPU-JECT 2 MG/1 ML DISP.SYRIN IVPUSH ONE (21:42)
[2022-11-16 21:46] LABS: VENOUS BASE EXCESS -15.1 mmol/L (-2-2); VENOUS O2 SATURATION 63.1 % (70-80); VENOUS PCO2 33.2 mmHg (38-52)
[2022-11-16 21:48] LABS: VENOUS PH 7.181 (7.310-7.410)
[2022-11-16 22:13] LABS: CHLORIDE 107 mmol/L (98-107); SODIUM 140 mmol/L (136-145)
[2022-11-16 22:14] LABS: CALCIUM 8.3 mg/dL (8.5-10.1)
[2022-11-16 22:15] LABS: ANION GAP 21 MMOL/L (8-16); BLOOD UREA NITROGEN 77.1 mg/dL (7-18); CO2 13 mmol/L (21-32)
[2022-11-16 22:18] LABS: CREATININE 3.1 mg/dL (0.55-1.3)
[2022-11-16 22:24] LABS: GLUCOSE,RANDOM 671 mg/dL (74-106)
[2022-11-16] MEDS ORDERED: ACETAMINOPHEN INJECTION 100 ML IVPB ONE (22:28)
[2022-11-16] MEDS ORDERED: PIPERACILLIN/TAZOB 2.25 GM 2.25 GM/50 ML BAG IVPB ONE (22:28)
[2022-11-16] MEDS ORDERED: SODIUM CHLORIDE 0.9%/KCL 20 MEQ/1,000 ML INFUS.BAG IV SCH (22:30)
[2022-11-16] MEDS ORDERED: INSULIN REGULAR 100 UNITS in SODIUM CHLORIDE 99 ML IVPB SCH ×2 (23:15→23:45)
[2022-11-16 23:24] LABS: CHLORIDE 116 mmol/L (98-107); SODIUM 143 mmol/L (136-145)
[2022-11-16 23:27] LABS: ANION GAP 14 MMOL/L (8-16); CALCIUM 7.5 mg/dL (8.5-10.1); CO2 13 mmol/L (21-32)
[2022-11-16 23:28] LABS: BLOOD UREA NITROGEN 75.2 mg/dL (7-18)
[2022-11-16 23:31] LABS: CREATININE 2.8 mg/dL (0.55-1.3)
[2022-11-16 23:37] LABS: GLUCOSE,RANDOM 570 mg/dL (74-106)
[2022-11-16] MEDS ORDERED: DEXTROSE 50%-WATER 25 GM/50 ML DISP.SYRIN IVPUSH PRN (23:40)
[2022-11-16] MEDS ORDERED: LACTATED RINGERS SOLUTION 1,000 ML with POTASSIUM CHLORIDE 20 MEQ IV ONE (23:50)
[2022-11-17] MEDS ORDERED: INSULIN REGULAR 100 UNITS in SODIUM CHLORIDE 99 ML IVPB SCH ×2 (00:09→11:45)
[2022-11-17] MEDS ORDERED: DEXTROSE 5%-WATER - 1,000 ML IV SCH ×2 (00:15→11:45)
[2022-11-17] MEDS ORDERED: HEPARIN NA (PORCINE) 5,000 UNITS/ML 1ML VIAL SQ SCH (06:00)
[2022-11-17] MEDS ORDERED: ACETAMINOPHEN 1000 MG/100 ML BAG IVPB ONE (06:03)
[2022-11-17 07:52] LABS: HEMATOCRIT 40.6 % (35.4-49); HEMOGLOBIN 13.6 GM/dL (11.7-16.9); MCH 30.1 pg (25.7-33.7); MCHC 33.5 g/dl (32.0-35.9); MEAN CELL VOLUME 89.9 fl (80-96); MEAN PLT VOLUME 9.7 fl (7.5-11.1); PLATELET COUNT 186 10^3/uL (134-434); RBC 4.52 M/mm3 (4.00-5.60); RDW 14.2 % (11.9-15.9); WHITE BLOOD COUNT 17.7 K/mm3 (4.0-10.0)
[2022-11-17 08:02] LABS: CALCIUM 8.4 mg/dL (8.5-10.1)
[2022-11-17 08:03] LABS: BLOOD UREA NITROGEN 62.2 mg/dL (7-18); MAGNESIUM 2.7 mg/dL (1.8-2.4)
[2022-11-17 08:06] LABS: CREATININE 2.4 mg/dL (0.55-1.3)
[2022-11-17] MEDS ORDERED: TAMSULOSIN HCL 0.4 MG CAP PO SCH (08:30)
[2022-11-17] MEDS ORDERED: PIPERACILLIN/TAZOB 2.25 GM 2.25 GM in DEXTROSE 5%-WATER - 50 ML IVPB SCH ×2 (09:00→15:00)
[2022-11-17] MEDS ORDERED: PROPOFOL 20 ML ONE (09:26)
[2022-11-17] MEDS ORDERED: ETOMIDATE 20 MG/10 ML VIAL IVPUSH ONE (09:26)
[2022-11-17] MEDS ORDERED: SUCCINYLCHOLINE CHLORIDE 200 MG/10 ML SYRINGE ONE (09:42)
[2022-11-17 09:53] LABS: URINE RBC 831.9 /uL (0-23.9); URINE WBC 66.9 /uL (0-25.8); YEAST NEGATIVE (NEGATIVE)
[2022-11-17] MEDS ORDERED: MUPIROCIN 2% TOPICAL OINTMENT FOR DECOLONIZATION NS SCH (10:00)
[2022-11-17] MEDS ORDERED: ONDANSETRON 4 MG/2 ML VIAL ONE (10:14)
[2022-11-17] MEDS ORDERED: ACETAMINOPHEN INJECTION 100 ML IVPB ONE (11:28)
[2022-11-17] MEDS ORDERED: MEPERIDINE HCL 25 MG/ML VIAL IVPUSH ONE (11:30)
[2022-11-17] MEDS ORDERED: LACTATED RINGERS SOLUTION 1000 ML INFUS.BAG IV ONE ×3 (11:39→21:51)
[2022-11-17] MEDS ORDERED: DEXTROSE 50%-WATER 25 GM/50 ML DISP.SYRIN IVPUSH PRN (11:45)
[2022-11-17] MEDS: ACETAMINOPHEN 1000 MG/100 ML BAG IVPB PRN ×2 (12:45→17:58)
[2022-11-17] MEDS: HEPARIN NA (PORCINE) 5,000 UNITS/ML 1ML VIAL SQ SCH ×2 (15:10→21:11)
[2022-11-17] MEDS ORDERED: INSULIN SLIDING SCALE (NOVOLOG) 1 VIAL SQ SCH (16:30)
[2022-11-17] MEDS: PIPERACILLIN/TAZOB 2.25 GM 2.25 GM in DEXTROSE 5%-WATER - 50 ML IVPB SCH (17:58)
[2022-11-17] MEDS: LACTATED RINGERS SOLUTION 1,000 ML/1,000 ML INFUS.BAG IV SCH ×2 (18:35→21:09)
[2022-11-17 21:05] LABS: HEMATOCRIT 39.5 % (35.4-49); HEMOGLOBIN 13.4 GM/dL (11.7-16.9); MCH 30.6 pg (25.7-33.7); MCHC 33.8 g/dl (32.0-35.9); MEAN CELL VOLUME 90.3 fl (80-96); MEAN PLT VOLUME 8.9 fl (7.5-11.1); PLATELET COUNT 99 10^3/uL (134-434); RBC 4.38 M/mm3 (4.00-5.60); RDW 14.7 % (11.9-15.9)
[2022-11-17] MEDS: MUPIROCIN 2% TOPICAL OINTMENT FOR DECOLONIZATION NS SCH (21:09)
[2022-11-17] MEDS: CHLORHEXIDINE GLUCONATE 4% CLEANSER FOR DECOLONIZATION TP SCH (21:09)
[2022-11-17] MEDS: INSULIN SLIDING SCALE (NOVOLOG) 1 VIAL SQ SCH (21:21)
[2022-11-17 21:31] LABS: CHLORIDE 124 mmol/L (98-107); SODIUM 152 mmol/L (136-145)
[2022-11-17 21:33] LABS: CALCIUM 8.3 mg/dL (8.5-10.1)
[2022-11-17 21:34] LABS: ANION GAP 10 MMOL/L (8-16); CO2 18 mmol/L (21-32); GLUCOSE,RANDOM 193 mg/dL (74-106)
[2022-11-17 21:36] LABS: SGPT/ALT 261 U/L (13-61)
[2022-11-17 21:37] LABS: CREATININE 2.6 mg/dL (0.55-1.3); SGOT/AST 792 U/L (15-37)
[2022-11-17 21:38] LABS: BILIRUBIN,TOTAL 1.7 mg/dL (0.2-1)
[2022-11-17] MEDS ORDERED: IBUPROFEN 800 MG/8 ML IJ IVPB ONE (21:47)
[2022-11-17 21:48] LABS: ALBUMIN 1.9 g/dl (3.4-5.0); ALK PHOS 408 U/L (45-117); LACTIC ACID 6.8 mmol/L (0.4-2.0); TOT PROT 5.3 g/dl (6.4-8.2)
[2022-11-17] MEDS ORDERED: POTASSIUM PHOSPHATE 30 MM in SODIUM CHLORIDE 500 ML IVPB ONE (21:48)
[2022-11-17] MEDS ORDERED: SODIUM CHLORIDE 0.45% 1,000 ML IV SCH ×2 (22:00)
[2022-11-17] MEDS ORDERED: CHLORHEXIDINE GLUCONATE 4% CLEANSER FOR DECOLONIZATION TP SCH (22:00)
[2022-11-17 22:06] LABS: ANISOCYTOSIS 0; MACROCYTOSIS 0
[2022-11-17 22:18] LABS: TOXIC GRANULATION 1+
[2022-11-17] MEDS ORDERED: LORazepam 2 MG/ML SDV VIAL IVPUSH ONE (22:22)
[2022-11-18] MEDS ORDERED: LORazepam 2 MG/ML SDV VIAL IVPUSH ONE (01:00)
[2022-11-18] MEDS: PIPERACILLIN/TAZOB 2.25 GM 2.25 GM in DEXTROSE 5%-WATER - 50 ML IVPB SCH ×2 (01:09→09:49)
[2022-11-18 03:54] LABS: LACTIC ACID 5.2 mmol/L (0.4-2.0)
[2022-11-18] MEDS ORDERED: HYDROmorphone HCl 2 MG/ML VIAL IVPUSH ONE (04:43)
[2022-11-18] MEDS ORDERED: PHENYLEPHRINE HCL 10 MG/1 ML SINGLE DOSE VIAL ONE (04:48)
[2022-11-18] MEDS ORDERED: PHENYLEPHRINE NS PREMIX 50,000 MCG/500 ML BAG CVP SCH (05:15)
[2022-11-18] MEDS ORDERED: NOREPINEPHRINE BITARTRATE/D5W 8 MG/250 ML BAG IVPB SCH (06:00)
[2022-11-18] MEDS: HEPARIN NA (PORCINE) 5,000 UNITS/ML 1ML VIAL SQ SCH (06:07)
[2022-11-18] MEDS: INSULIN SLIDING SCALE (NOVOLOG) 1 VIAL SQ SCH ×4 (06:19→23:19)
[2022-11-18 07:20] LABS: HEMATOCRIT 36.9 % (35.4-49); HEMOGLOBIN 12.1 GM/dL (11.7-16.9); MCH 29.9 pg (25.7-33.7); MCHC 32.8 g/dl (32.0-35.9); MEAN PLT VOLUME 9.7 fl (7.5-11.1); PLATELET COUNT 99 10^3/uL (134-434); RBC 4.06 M/mm3 (4.00-5.60); RDW 14.5 % (11.9-15.9); WHITE BLOOD COUNT 20.5 K/mm3 (4.0-10.0)
[2022-11-18 07:43] LABS: CALCIUM 7.7 mg/dL (8.5-10.1)
[2022-11-18 07:47] LABS: CREATININE 2.6 mg/dL (0.55-1.3); PHOSPHOROUS 6.3 mg/dL (2.5-4.9)
[2022-11-18 07:55] LABS: LACTIC ACID 4.4 mmol/L (0.4-2.0)
[2022-11-18] MEDS ORDERED: LACTATED RINGERS SOLUTION 1,000 ML/1,000 ML INFUS.BAG IV SCH (08:00)
[2022-11-18] MEDS: MUPIROCIN 2% TOPICAL OINTMENT FOR DECOLONIZATION NS SCH ×2 (10:42→23:19)
[2022-11-18] MEDS ORDERED: VANCOMYCIN/WATER FOR INJ (PEG) 1,000 MG/200 ML BAG IVPB ONE (10:45)
[2022-11-18] MEDS ORDERED: CASPOFUNGIN ACETATE 70 MG in SODIUM CHLORIDE 250 ML IVPB ONE (11:00)
[2022-11-18] MEDS ORDERED: VASOPRESSIN 20 UNITS/ML VIAL IV ONE (11:22)
[2022-11-18] MEDS ORDERED: LACTATED RINGERS SOLUTION 1,000 ML/1,000 ML INFUS.BAG IV STA (11:29)
[2022-11-18] MEDS: MEROPENEM 500 MG in DEXTROSE 5%-WATER 100 ML IVPB SCH (13:01)
[2022-11-18] MEDS: VASOPRESSIN 40 UNITS/100 ML BAG IV SCH (13:02)
[2022-11-18] MEDS: HYDROCORTISONE SOD SUCCINATE 100 MG/2 ML VIAL IVPUSH SCH ×2 (13:04→18:38)
[2022-11-18] MEDS: TAMSULOSIN HCL 0.4 MG CAP PO SCH (13:04)
[2022-11-18] MEDS ORDERED: IBUPROFEN 800 MG/8 ML IJ IVPB PRN (16:25)
[2022-11-18] MEDS: SODIUM CHLORIDE 0.45% 1,000 ML IV SCH ×2 (17:05→23:10)
[2022-11-18] MEDS ORDERED: NOREPINEPHRINE BITARTRATE 16,000 MCG in SODIUM CHLORIDE 484 ML IV SCH (17:15)
[2022-11-18] MEDS ORDERED: LORazepam 2 MG/ML SDV VIAL IVPUSH PRN (17:16)
[2022-11-18] MEDS: NOREPINEPHRINE BITARTRATE/D5W 8 MG/250 ML BAG IVPB SCH (17:26)
[2022-11-18 22:12] LABS: INR 1.99 (0.83-1.09); PROTHROMBIN TIME (PATIENT) 22.9 SEC (9.7-13.0)
[2022-11-18 22:15] LABS: ACTIVATED PTT 30.7 SECONDS (25.2-36.5)
[2022-11-18] MEDS: CHLORHEXIDINE GLUCONATE 4% CLEANSER FOR DECOLONIZATION TP SCH (23:19)
[2022-11-18 23:31] LABS: CALCIUM 7.2 mg/dL (8.5-10.1)
[2022-11-18 23:32] LABS: BLOOD UREA NITROGEN 84.3 mg/dL (7-18)
[2022-11-18 23:35] LABS: CREATININE 3.2 mg/dL (0.55-1.3)
[2022-11-19] MEDS: NOREPINEPHRINE BITARTRATE/D5W 8 MG/250 ML BAG IVPB SCH ×3 (00:09→17:15)
[2022-11-19] MEDS: MEROPENEM 500 MG in DEXTROSE 5%-WATER 100 ML IVPB SCH ×3 (00:13→23:43)
[2022-11-19] MEDS: HYDROCORTISONE SOD SUCCINATE 100 MG/2 ML VIAL IVPUSH SCH ×3 (01:55→17:14)
[2022-11-19] MEDS: VASOPRESSIN 40 UNITS/100 ML BAG IV SCH ×2 (06:05→12:45)
[2022-11-19] MEDS: INSULIN SLIDING SCALE (NOVOLOG) 1 VIAL SQ SCH ×3 (06:16→16:24)
[2022-11-19] MEDS: SODIUM CHLORIDE 0.45% 1,000 ML IV SCH ×3 (07:05→23:44)
[2022-11-19] MEDS: TAMSULOSIN HCL 0.4 MG CAP PO SCH (08:08)
[2022-11-19 08:21] LABS: HEMATOCRIT 36.4 % (35.4-49); HEMOGLOBIN 11.9 GM/dL (11.7-16.9); MCH 30.3 pg (25.7-33.7); MCHC 32.6 g/dl (32.0-35.9); MEAN PLT VOLUME 10.6 fl (7.5-11.1); PLATELET COUNT 106 10^3/uL (134-434); RBC 3.92 M/mm3 (4.00-5.60); WHITE BLOOD COUNT 25.2 K/mm3 (4.0-10.0)
[2022-11-19 08:31] LABS: CALCIUM 7.1 mg/dL (8.5-10.1)
[2022-11-19 08:32] LABS: ALBUMIN 1.7 g/dl (3.4-5.0); BLOOD UREA NITROGEN 90.1 mg/dL (7-18); MAGNESIUM 2.2 mg/dL (1.8-2.4)
[2022-11-19 08:35] LABS: CREATININE 3.2 mg/dL (0.55-1.3); PHOSPHOROUS 4.6 mg/dL (2.5-4.9)
[2022-11-19 08:36] LABS: TOT PROT 5.4 g/dl (6.4-8.2)
[2022-11-19 08:37] LABS: BILIRUBIN,TOTAL 1.4 mg/dL (0.2-1)
[2022-11-19] MEDS ORDERED: SODIUM CHLORIDE 0.45% 1,000 ML IV SCH (10:15)
[2022-11-19] MEDS: MUPIROCIN 2% TOPICAL OINTMENT FOR DECOLONIZATION NS SCH ×2 (10:16→21:08)
[2022-11-19] MEDS: morphine SULFATE 4 MG/ML VIAL IVPUSH PRN (10:16)
[2022-11-19] MEDS: CASPOFUNGIN ACETATE 50 MG in SODIUM CHLORIDE 250 ML IVPB SCH (11:37)
[2022-11-19] MEDS: SODIUM BICARBONATE 8.4% 50 MEQ/50 ML VIAL IVPUSH SCH ×3 (13:42→21:08)
[2022-11-19] MEDS ORDERED: INSULIN (NOVOLOG) ASPART 100 UNITS/ML 10ML VIAL ONE (16:45)
[2022-11-19] MEDS ORDERED: INSULIN REGULAR 100 UNITS in SODIUM CHLORIDE 99 ML IVPB SCH (19:15)
[2022-11-19 20:36] LABS: VENOUS BASE EXCESS -5.9 mmol/L (-2-2); VENOUS O2 SATURATION 78.1 % (70-80); VENOUS PCO2 36.7 mmHg (38-52); VENOUS PH 7.338 (7.310-7.410)
[2022-11-19] MEDS: CHLORHEXIDINE GLUCONATE 4% CLEANSER FOR DECOLONIZATION TP SCH (21:08)
[2022-11-20] MEDS: SODIUM BICARBONATE 8.4% 50 MEQ/50 ML VIAL IVPUSH SCH (00:59)
[2022-11-20] MEDS: HYDROCORTISONE SOD SUCCINATE 100 MG/2 ML VIAL IVPUSH SCH ×3 (01:03→21:42)
[2022-11-20 07:03] LABS: HEMATOCRIT 34.4 % (35.4-49); HEMOGLOBIN 11.3 GM/dL (11.7-16.9); MCH 28.9 pg (25.7-33.7); MCHC 32.8 g/dl (32.0-35.9); MEAN CELL VOLUME 88.1 fl (80-96); MEAN PLT VOLUME 9.6 fl (7.5-11.1); PLATELET COUNT 85 10^3/uL (134-434); RBC 3.91 M/mm3 (4.00-5.60); RDW 15.4 % (11.9-15.9); WHITE BLOOD COUNT 18.1 K/mm3 (4.0-10.0)
[2022-11-20] MEDS: TAMSULOSIN HCL 0.4 MG CAP PO SCH (07:36)
[2022-11-20 07:37] LABS: CALCIUM 7.2 mg/dL (8.5-10.1)
[2022-11-20 07:38] LABS: ALBUMIN 1.5 g/dl (3.4-5.0); BLOOD UREA NITROGEN 79.9 mg/dL (7-18); MAGNESIUM 2.4 mg/dL (1.8-2.4)
[2022-11-20 07:41] LABS: CREATININE 2.5 mg/dL (0.55-1.3); PHOSPHOROUS 2.2 mg/dL (2.5-4.9)
[2022-11-20 07:42] LABS: BILIRUBIN,TOTAL 0.9 mg/dL (0.2-1); TOT PROT 5.4 g/dl (6.4-8.2)
[2022-11-20] MEDS: MUPIROCIN 2% TOPICAL OINTMENT FOR DECOLONIZATION NS SCH (09:58)
[2022-11-20] MEDS ORDERED: METOCLOPRAMIDE HCL INJECTION 10 MG/2 ML VIAL IVPUSH ONE (10:04)
[2022-11-20] MEDS: SODIUM CHLORIDE 0.45% 1,000 ML IV SCH (10:16)
[2022-11-20] MEDS ORDERED: DOCUSATE SODIUM 100 MG CAPSULE (FP) PO SCH (10:45)
[2022-11-20] MEDS ORDERED: INSULIN SLIDING SCALE (NOVOLOG) 1 VIAL SQ SCH (11:00)
[2022-11-20] MEDS: morphine SULFATE 4 MG/ML VIAL IVPUSH PRN (11:00)
[2022-11-20] MEDS: MEROPENEM 500 MG in DEXTROSE 5%-WATER 100 ML IVPB SCH (11:30)
[2022-11-20] MEDS ORDERED: SODIUM CHLORIDE 0.45% 1,000 ML IV SCH ×4 (12:00→16:03)
[2022-11-20 13:30] VITALS: BMI 23.9
[2022-11-20] MEDS ORDERED: POTASSIUM PHOSPHATE 30 MM in SODIUM CHLORIDE 250 ML IVPB ONE (13:30)
[2022-11-20] MEDS ORDERED: DEXTROSE 50%-WATER 25 GM/50 ML DISP.SYRIN IVPUSH PRN (13:36)
[2022-11-20] MEDS ORDERED: HEPARIN NA (PORCINE) 5,000 UNITS/ML 1ML VIAL SQ SCH (14:00)
[2022-11-20] MEDS ORDERED: POTASSIUM PHOSPHATE 30 MM in SODIUM CHLORIDE 500 ML IVPB ONE (14:30)
[2022-11-20] MEDS: HEPARIN NA (PORCINE) 5,000 UNITS/ML 1ML VIAL SQ SCH ×2 (14:40→21:41)
[2022-11-20] MEDS ORDERED: morphine SULFATE 4 MG/ML VIAL IVPUSH PRN ×2 (16:00)
[2022-11-20] MEDS: INSULIN SLIDING SCALE (NOVOLOG) 1 VIAL SQ SCH ×2 (17:40→21:54)
[2022-11-20] MEDS: CASPOFUNGIN ACETATE 50 MG in SODIUM CHLORIDE 250 ML IVPB SCH (18:02)
[2022-11-20 18:05] LABS: CALCIUM 7.4 mg/dL (8.5-10.1)
[2022-11-20 18:06] LABS: BLOOD UREA NITROGEN 83.3 mg/dL (7-18)
[2022-11-20 18:09] LABS: CREATININE 2.3 mg/dL (0.55-1.3)
[2022-11-20] MEDS: SENNOSIDES 8.6MG TABLET (FP) PO SCH (21:41)
[2022-11-20] MEDS: INSULIN (NOVOLOG) ASPART 100 UNITS/ML 10ML VIAL SQ SCH (21:55)
[2022-11-20] MEDS ORDERED: HYDROCORTISONE SOD SUCCINATE 100 MG/2 ML VIAL IVPUSH SCH (22:00)
[2022-11-20] MEDS ORDERED: SENNOSIDES 8.6MG TABLET (FP) PO SCH (22:00)
[2022-11-20] MEDS ORDERED: INSULIN (LEVEMIR) 100 UNITS/ML UNITS SQ SCH ×3 (22:00→22:48)
[2022-11-20] MEDS: DOCUSATE SODIUM 100 MG CAPSULE (FP) PO SCH (22:15)
[2022-11-21] MEDS: MEROPENEM 500 MG in DEXTROSE 5%-WATER 100 ML IVPB SCH ×3 (00:04→23:05)
[2022-11-21] MEDS: HEPARIN NA (PORCINE) 5,000 UNITS/ML 1ML VIAL SQ SCH ×4 (05:27→22:59)
[2022-11-21] MEDS ORDERED: INSULIN (LEVEMIR) 100 UNITS/ML UNITS SQ SCH (07:00)
[2022-11-21] MEDS: INSULIN SLIDING SCALE (NOVOLOG) 1 VIAL SQ SCH ×4 (07:13→22:36)
[2022-11-21] MEDS: INSULIN (NOVOLOG) ASPART 100 UNITS/ML 10ML VIAL SQ SCH ×4 (07:14→22:35)
[2022-11-21 09:49] LABS: HEMATOCRIT 35.7 % (35.4-49); HEMOGLOBIN 11.9 GM/dL (11.7-16.9); MCH 28.8 pg (25.7-33.7); MCHC 33.2 g/dl (32.0-35.9); MEAN CELL VOLUME 86.6 fl (80-96); MEAN PLT VOLUME 10.1 fl (7.5-11.1); PLATELET COUNT 90 10^3/uL (134-434); RBC 4.12 M/mm3 (4.00-5.60); RDW 15.1 % (11.9-15.9); WHITE BLOOD COUNT 14.2 K/mm3 (4.0-10.0)
[2022-11-21 09:58] LABS: ALBUMIN 1.6 g/dl (3.4-5.0); CALCIUM 7.6 mg/dL (8.5-10.1)
[2022-11-21 09:59] LABS: BLOOD UREA NITROGEN 81.3 mg/dL (7-18); MAGNESIUM 2.7 mg/dL (1.8-2.4)
[2022-11-21 10:01] LABS: CREATININE 2.1 mg/dL (0.55-1.3)
[2022-11-21 10:02] LABS: PHOSPHOROUS 1.8 mg/dL (2.5-4.9)
[2022-11-21 10:03] LABS: BILIRUBIN,TOTAL 0.7 mg/dL (0.2-1)
[2022-11-21] MEDS: TAMSULOSIN HCL 0.4 MG CAP PO SCH (10:20)
[2022-11-21] MEDS: DOCUSATE SODIUM 100 MG CAPSULE (FP) PO SCH ×2 (10:20→22:56)
[2022-11-21] MEDS: HYDROCORTISONE SOD SUCCINATE 100 MG/2 ML VIAL IVPUSH SCH (10:22)
[2022-11-21] MEDS ORDERED: FUROSEMIDE 40 MG/4 ML INJECTABLE VIAL IVPUSH ONE (11:00)
[2022-11-21] MEDS: CASPOFUNGIN ACETATE 50 MG in SODIUM CHLORIDE 250 ML IVPB SCH (12:06)
[2022-11-21] MEDS ORDERED: POTASSIUM PHOSPHATE 15 MM in DEXTROSE 5%-WATER - 250 ML IVPB ONE (15:11)
[2022-11-21] MEDS ORDERED: DEXTROSE 5%-WATER - 1,000 ML with POTASSIUM CHLORIDE 10 MEQ IV SCH (15:15)
[2022-11-21] MEDS ORDERED: KCL 10 MEQ IVPB 10 MEQ/100 ML INFUS.BAG IVPB SCH (15:15)
[2022-11-21] MEDS: POTASSIUM CHLORIDE 10 MEQ in DEXTROSE 5%-WATER - 1,000 ML IV SCH (18:16)
[2022-11-21 19:34] LABS: EPI CELLS 20 /uL (0-25.1); HYALINE CASTS 4 /uL (0-3.1); PH,URINE 5.5 (5.0-8.0); URINE APPEARANCE CLEAR; URINE BACTERIA 14 /uL (0-1359); URINE BILIRUBIN NEGATIVE (NEGATIVE); URINE COLOR YELLOW; URINE GLUCOSE (UA) NEGATIVE (NEGATIVE); URINE KETONE NEGATIVE (NEGATIVE); URINE LEUK ESTERASE 2+ (NEGATIVE); URINE NITRITE NEGATIVE (NEGATIVE); URINE PROTEIN 1+ (NEGATIVE); URINE UROBILINOGEN 0.2 mg/dL (0.2-1.0); URINE WBC 173 /uL (0-25.8)
[2022-11-21 20:41] LABS: URINE RBC 161 /uL (0-23.9); YEAST PRESENT (NEGATIVE)
[2022-11-21] MEDS ORDERED: HYDROCORTISONE SOD SUCCINATE 100 MG/2 ML VIAL IVPB SCH ×2 (22:00)
[2022-11-21] MEDS: SENNOSIDES 8.6MG TABLET (FP) PO SCH (22:48)
[2022-11-21] MEDS: ALBUMIN HUMAN 25% 12.5 GM/50 ML VIAL IV SCH (23:55)
[2022-11-22] MEDS ORDERED: INSULIN (LEVEMIR) 100 UNITS/ML UNITS SQ SCH (00:27)
[2022-11-22] MEDS ORDERED: INSULIN SLIDING SCALE (NOVOLOG) 1 VIAL SQ SCH (00:28)
[2022-11-22] MEDS: POTASSIUM CHLORIDE 10 MEQ in DEXTROSE 5%-WATER - 1,000 ML IV SCH ×2 (05:42→13:57)
[2022-11-22] MEDS: HEPARIN NA (PORCINE) 5,000 UNITS/ML 1ML VIAL SQ SCH ×3 (05:42→21:39)
[2022-11-22] MEDS: INSULIN (LEVEMIR) 100 UNITS/ML UNITS SQ SCH (06:29)
[2022-11-22] MEDS: INSULIN SLIDING SCALE (NOVOLOG) 1 VIAL SQ SCH ×4 (06:29→21:30)
[2022-11-22] MEDS ORDERED: INSULIN (NOVOLOG) ASPART 100 UNITS/ML 10ML VIAL SQ SCH (07:00)
[2022-11-22] MEDS: DOCUSATE SODIUM 100 MG CAPSULE (FP) PO SCH ×2 (09:30→21:20)
[2022-11-22] MEDS: TAMSULOSIN HCL 0.4 MG CAP PO SCH (09:30)
[2022-11-22 11:57] LABS: HEMATOCRIT 33.8 % (35.4-49); HEMOGLOBIN 10.9 GM/dL (11.7-16.9); MCH 27.9 pg (25.7-33.7); MCHC 32.3 g/dl (32.0-35.9); MEAN CELL VOLUME 86.4 fl (80-96); MEAN PLT VOLUME 10.5 fl (7.5-11.1); PLATELET COUNT 89 10^3/uL (134-434); RBC 3.91 M/mm3 (4.00-5.60); RDW 15.4 % (11.9-15.9); WHITE BLOOD COUNT 12.2 K/mm3 (4.0-10.0)
[2022-11-22 12:24] LABS: ANISOCYTOSIS 0; HELMET CELLS 0; HOWELL-JOLLY BODIES 0; MACROCYTOSIS 0; OVALOCYTE 0; ROULEAU 0; SICKELED CELLS 0; TARGET CELLS 0; TEAR DROP CELLS 0; TOXIC GRANULATION 0
[2022-11-22 12:25] LABS: CHLORIDE 131 mmol/L (98-107)
[2022-11-22 12:27] LABS: CALCIUM 7.5 mg/dL (8.5-10.1)
[2022-11-22 12:28] LABS: ALBUMIN 1.6 g/dl (3.4-5.0); CO2 29 mmol/L (21-32); GLUCOSE,RANDOM 161 mg/dL (74-106)
[2022-11-22] MEDS: CASPOFUNGIN ACETATE 50 MG in SODIUM CHLORIDE 250 ML IVPB SCH (12:28)
[2022-11-22] MEDS: MEROPENEM 500 MG in DEXTROSE 5%-WATER 100 ML IVPB SCH (12:28)
[2022-11-22 12:30] LABS: CHLORIDE 131 mmol/L (98-107)
[2022-11-22 12:31] LABS: CREATININE 1.9 mg/dL (0.55-1.3); SGOT/AST 85 U/L (15-37); SGPT/ALT 121 U/L (13-61)
[2022-11-22 12:32] LABS: BILIRUBIN,TOTAL 0.8 mg/dL (0.2-1)
[2022-11-22 12:33] LABS: ALBUMIN 1.6 g/dl (3.4-5.0); BLOOD UREA NITROGEN 77.3 mg/dL (7-18); CALCIUM 7.5 mg/dL (8.5-10.1); CO2 29 mmol/L (21-32); GLUCOSE,RANDOM 157 mg/dL (74-106)
[2022-11-22 12:36] LABS: CREATININE 1.9 mg/dL (0.55-1.3); SGOT/AST 84 U/L (15-37); SGPT/ALT 122 U/L (13-61)
[2022-11-22 12:39] LABS: ALK PHOS 333 U/L (45-117); ANION GAP 3 MMOL/L (8-16); SODIUM 163 mmol/L (136-145)
[2022-11-22 12:40] LABS: ALK PHOS 326 U/L (45-117); ANION GAP 4 MMOL/L (8-16); SODIUM 163 mmol/L (136-145)
[2022-11-22] MEDS ORDERED: POTASSIUM CHLORIDE 10 MEQ in DEXTROSE 5%-WATER - 1,000 ML IV SCH (14:19)
[2022-11-22] MEDS ORDERED: POTASSIUM CHLORIDE 20 MEQ in DEXTROSE 5%-WATER - 1,000 ML IV SCH (14:49)
[2022-11-22] MEDS: KCL 10 MEQ IVPB 10 MEQ/100 ML INFUS.BAG IVPB SCH ×5 (15:00→23:40)
[2022-11-22] MEDS ORDERED: POTASSIUM CHLORIDE ORAL LIQUID 20 MEQ/15 ML PO ONE (16:59)
[2022-11-22 20:11] LABS: CALCIUM 7.1 mg/dL (8.5-10.1)
[2022-11-22 20:12] LABS: BLOOD UREA NITROGEN 79.4 mg/dL (7-18); CO2 25 mmol/L (21-32); GLUCOSE,RANDOM 358 mg/dL (74-106)
[2022-11-22 20:16] LABS: CHLORIDE 131 mmol/L (98-107)
[2022-11-22 20:29] LABS: ANION GAP 8 MMOL/L (8-16); SODIUM 163 mmol/L (136-145)
[2022-11-22] MEDS ORDERED: SODIUM CHLORIDE 0.45% 1,000 ML IV SCH (21:00)
[2022-11-22] MEDS: POTASSIUM CHLORIDE ORAL LIQUID 20 MEQ/15 ML PO SCH (21:19)
[2022-11-22] MEDS: SENNOSIDES 8.6MG TABLET (FP) PO SCH (21:20)
[2022-11-23 05:16] LABS: CHLORIDE 128 mmol/L (98-107)
[2022-11-23 05:17] LABS: CALCIUM 7.5 mg/dL (8.5-10.1)
[2022-11-23 05:18] LABS: BLOOD UREA NITROGEN 76.6 mg/dL (7-18); CO2 24 mmol/L (21-32); GLUCOSE,RANDOM 365 mg/dL (74-106)
[2022-11-23 05:21] LABS: CREATININE 2.2 mg/dL (0.55-1.3)
[2022-11-23 05:26] LABS: ANION GAP 8 MMOL/L (8-16); SODIUM 161 mmol/L (136-145)
[2022-11-23] MEDS: INSULIN (LEVEMIR) 100 UNITS/ML UNITS SQ SCH (07:02)
[2022-11-23] MEDS: HEPARIN NA (PORCINE) 5,000 UNITS/ML 1ML VIAL SQ SCH ×3 (07:02→22:30)
[2022-11-23] MEDS: INSULIN SLIDING SCALE (NOVOLOG) 1 VIAL SQ SCH ×4 (07:04→22:30)
[2022-11-23 08:46] LABS: HEMATOCRIT 35.3 % (35.4-49); MCH 28.2 pg (25.7-33.7); MCHC 31.3 g/dl (32.0-35.9); MEAN CELL VOLUME 89.9 fl (80-96); RBC 3.92 M/mm3 (4.00-5.60); RDW 15.5 % (11.9-15.9)
[2022-11-23 08:58] LABS: MEAN PLT VOLUME 11.1 fl (7.5-11.1); PLATELET COUNT 105 10^3/uL (134-434)
[2022-11-23 09:10] LABS: ALBUMIN 1.6 g/dl (3.4-5.0); BLOOD UREA NITROGEN 80.2 mg/dL (7-18); CHLORIDE 130 mmol/L (98-107); CO2 22 mmol/L (21-32); MAGNESIUM 2.3 mg/dL (1.8-2.4)
[2022-11-23 09:13] LABS: CREATININE 2.1 mg/dL (0.55-1.3); SGOT/AST 60 U/L (15-37); SGPT/ALT 104 U/L (13-61)
[2022-11-23 09:14] LABS: PHOSPHOROUS 3.9 mg/dL (2.5-4.9)
[2022-11-23 09:25] LABS: ALK PHOS 291 U/L (45-117); ANION GAP 11 MMOL/L (8-16); GLUCOSE,RANDOM 430 mg/dL (74-106); SODIUM 163 mmol/L (136-145)
[2022-11-23] MEDS: TAMSULOSIN HCL 0.4 MG CAP PO SCH (09:33)
[2022-11-23] MEDS: POTASSIUM CHLORIDE ORAL LIQUID 20 MEQ/15 ML PO SCH ×3 (09:34→22:45)
[2022-11-23] MEDS: DOCUSATE SODIUM 100 MG CAPSULE (FP) PO SCH ×2 (09:34→22:29)
[2022-11-23] MEDS: DEXTROSE 5%-WATER - 1,000 ML with POTASSIUM CHLORIDE 20 MEQ IV SCH ×2 (10:12→23:38)
[2022-11-23] MEDS ORDERED: INSULIN (LEVEMIR) 100 UNITS/ML UNITS SQ ONE (10:39)
[2022-11-23] MEDS: CASPOFUNGIN ACETATE 50 MG in SODIUM CHLORIDE 250 ML IVPB SCH (12:32)
[2022-11-23] MEDS ORDERED: INSULIN (LEVEMIR) 100 UNITS/ML UNITS SQ SCH ×3 (13:18→22:00)
[2022-11-23] MEDS: SENNOSIDES 8.6MG TABLET (FP) PO SCH (22:30)
[2022-11-24] MEDS: HEPARIN NA (PORCINE) 5,000 UNITS/ML 1ML VIAL SQ SCH ×3 (07:01→22:26)
[2022-11-24] MEDS: INSULIN SLIDING SCALE (NOVOLOG) 1 VIAL SQ SCH ×4 (07:02→22:34)
[2022-11-24] MEDS ORDERED: INSULIN (LEVEMIR) 100 UNITS/ML UNITS SQ ONE (07:24)
[2022-11-24] MEDS ORDERED: POTASSIUM CHLORIDE 20 MEQ in DEXTROSE 5%-WATER - 1,000 ML IV SCH (08:27)
[2022-11-24] MEDS: TAMSULOSIN HCL 0.4 MG CAP PO SCH (08:57)
[2022-11-24] MEDS: POTASSIUM CHLORIDE ORAL LIQUID 20 MEQ/15 ML PO SCH (09:40)
[2022-11-24 09:51] LABS: CHLORIDE 134 mmol/L (98-107)
[2022-11-24 09:53] LABS: CALCIUM 7.2 mg/dL (8.5-10.1); CO2 27 mmol/L (21-32)
[2022-11-24 09:54] LABS: GLUCOSE,RANDOM 210 mg/dL (74-106)
[2022-11-24 09:57] LABS: CREATININE 2.1 mg/dL (0.55-1.3)
[2022-11-24 10:08] LABS: ANION GAP 4 MMOL/L (8-16); SODIUM 166 mmol/L (136-145)
[2022-11-24] MEDS ORDERED: LIDOCAINE VISCOUS 2% ORAL/TOP 15 ML UNIT-DOSE CUP MM ONE (10:33)
[2022-11-24] MEDS: DEXTROSE 5%-WATER - 1,000 ML IV SCH (11:19)
[2022-11-24] MEDS: DOCUSATE SODIUM 100 MG CAPSULE (FP) PO SCH ×2 (11:20→22:26)
[2022-11-24] MEDS: INSULIN (NOVOLOG) ASPART 100 UNITS/ML 10ML VIAL SQ SCH ×2 (11:52→17:53)
[2022-11-24 12:23] LABS: HEMATOCRIT 35.2 % (35.4-49); HEMOGLOBIN 11.3 GM/dL (11.7-16.9); MCH 28.3 pg (25.7-33.7); MEAN CELL VOLUME 88.4 fl (80-96); MEAN PLT VOLUME 10.7 fl (7.5-11.1); PLATELET COUNT 112 10^3/uL (134-434); RBC 3.98 M/mm3 (4.00-5.60); RDW 15.1 % (11.9-15.9); WHITE BLOOD COUNT 13.4 K/mm3 (4.0-10.0)
[2022-11-24 12:35] LABS: CHLORIDE 134 mmol/L (98-107)
[2022-11-24 12:36] LABS: CALCIUM 7.3 mg/dL (8.5-10.1)
[2022-11-24 12:38] LABS: ALBUMIN 1.7 g/dl (3.4-5.0); BLOOD UREA NITROGEN 65.7 mg/dL (7-18); CO2 30 mmol/L (21-32); GLUCOSE,RANDOM 136 mg/dL (74-106); MAGNESIUM 2.3 mg/dL (1.8-2.4)
[2022-11-24 12:40] LABS: CREATININE 2.1 mg/dL (0.55-1.3); PHOSPHOROUS 3.2 mg/dL (2.5-4.9); SGOT/AST 57 U/L (15-37); SGPT/ALT 99 U/L (13-61)
[2022-11-24 12:41] LABS: BILIRUBIN,TOTAL 0.6 mg/dL (0.2-1); TOT PROT 6.1 g/dl (6.4-8.2)
[2022-11-24 12:44] LABS: ALK PHOS 266 U/L (45-117)
[2022-11-24 12:49] LABS: ANISOCYTOSIS 0; HELMET CELLS 0; HOWELL-JOLLY BODIES 0; MACROCYTOSIS 0; OVALOCYTE 0; ROULEAU 0; SICKELED CELLS 0; TARGET CELLS 0; TEAR DROP CELLS 0; TOXIC GRANULATION 0
[2022-11-24 12:51] LABS: ANION GAP 3 MMOL/L (8-16); SODIUM 167 mmol/L (136-145)
[2022-11-24] MEDS: CASPOFUNGIN ACETATE 50 MG in SODIUM CHLORIDE 250 ML IVPB SCH (12:51)
[2022-11-24 13:30] LABS: HIV INTERPRETATION NEGATIVE (NEGATIVE)
[2022-11-24] MEDS: AMINO ACIDS 4.25%/D5W 1,000 ML IV SCH (14:00)
[2022-11-24] MEDS: DEXTROSE 5%-WATER - 1,000 ML with POTASSIUM CHLORIDE 20 MEQ IV SCH (15:45)
[2022-11-24] MEDS: MAG HYDROX/ALH/SMC/DPHA/LIDO 240 ML MOUTHWASH MM SCH ×2 (16:01→17:52)
[2022-11-24 17:23] LABS: BLOOD UREA NITROGEN 65.7 mg/dL (7-18); CALCIUM 7.1 mg/dL (8.5-10.1); CHLORIDE 131 mmol/L (98-107); CO2 27 mmol/L (21-32); GLUCOSE,RANDOM 199 mg/dL (74-106); MAGNESIUM 2.2 mg/dL (1.8-2.4)
[2022-11-24 17:28] LABS: CREATININE 2.1 mg/dL (0.55-1.3); PHOSPHOROUS 2.7 mg/dL (2.5-4.9)
[2022-11-24 17:57] LABS: ANION GAP 4 MMOL/L (8-16); SODIUM 162 mmol/L (136-145)
[2022-11-24] MEDS: SENNOSIDES 8.6MG TABLET (FP) PO SCH (22:25)
[2022-11-24] MEDS: INSULIN (LEVEMIR) 100 UNITS/ML UNITS SQ SCH (22:32)
[2022-11-24] MEDS: KCL 10 MEQ IVPB 10 MEQ/100 ML INFUS.BAG IVPB SCH (22:45)
[2022-11-25] MEDS: KCL 10 MEQ IVPB 10 MEQ/100 ML INFUS.BAG IVPB SCH ×4 (01:09→23:10)
[2022-11-25] MEDS: MAG HYDROX/ALH/SMC/DPHA/LIDO 240 ML MOUTHWASH MM SCH ×5 (01:10→18:38)
[2022-11-25] MEDS: INSULIN (NOVOLOG) ASPART 100 UNITS/ML 10ML VIAL SQ SCH ×3 (06:05→17:32)
[2022-11-25] MEDS: HEPARIN NA (PORCINE) 5,000 UNITS/ML 1ML VIAL SQ SCH ×3 (06:08→21:49)
[2022-11-25] MEDS: INSULIN SLIDING SCALE (NOVOLOG) 1 VIAL SQ SCH ×4 (06:08→21:49)
[2022-11-25] MEDS: INSULIN (LEVEMIR) 100 UNITS/ML UNITS SQ SCH ×2 (07:42→21:49)
[2022-11-25] MEDS: TAMSULOSIN HCL 0.4 MG CAP PO SCH (09:44)
[2022-11-25] MEDS: DOCUSATE SODIUM 100 MG CAPSULE (FP) PO SCH ×3 (09:44→22:05)
[2022-11-25 10:04] LABS: HEMATOCRIT 36.3 % (35.4-49); HEMOGLOBIN 11.8 GM/dL (11.7-16.9); MCH 28.6 pg (25.7-33.7); MCHC 32.4 g/dl (32.0-35.9); MEAN CELL VOLUME 88.4 fl (80-96); MEAN PLT VOLUME 11.2 fl (7.5-11.1); PLATELET COUNT 127 10^3/uL (134-434); RBC 4.11 M/mm3 (4.00-5.60); RDW 14.7 % (11.9-15.9); WHITE BLOOD COUNT 14.9 K/mm3 (4.0-10.0)
[2022-11-25 10:33] LABS: ANISOCYTOSIS 0; HELMET CELLS 0; HOWELL-JOLLY BODIES 0; MACROCYTOSIS 0; OVALOCYTE 0; ROULEAU 0; SICKELED CELLS 0; TARGET CELLS 0; TEAR DROP CELLS 0; TOXIC GRANULATION 0
[2022-11-25 10:47] LABS: CHLORIDE 133 mmol/L (98-107)
[2022-11-25 10:56] LABS: CREATININE 2.2 mg/dL (0.55-1.3); SGOT/AST 77 U/L (15-37)
[2022-11-25 10:57] LABS: ALBUMIN 1.9 g/dl (3.4-5.0); PHOSPHOROUS 3.9 mg/dL (2.5-4.9); SGPT/ALT 107 U/L (13-61)
[2022-11-25 10:58] LABS: CALCIUM 7.2 mg/dL (8.5-10.1); TOT PROT 6.9 g/dl (6.4-8.2)
[2022-11-25 11:00] LABS: BLOOD UREA NITROGEN 63.5 mg/dL (7-18); CO2 28 mmol/L (21-32); GLUCOSE,RANDOM 103 mg/dL (74-106); MAGNESIUM 2.2 mg/dL (1.8-2.4)
[2022-11-25 11:10] LABS: ALK PHOS 304 U/L (45-117); ANION GAP 5 MMOL/L (8-16); SODIUM 166 mmol/L (136-145)
[2022-11-25] MEDS: DEXTROSE 5%-WATER - 1,000 ML IV SCH (18:15)
[2022-11-25] MEDS: CASPOFUNGIN ACETATE 50 MG in SODIUM CHLORIDE 250 ML IVPB SCH (18:18)
[2022-11-25 19:27] LABS: CHLORIDE 132 mmol/L (98-107)
[2022-11-25 19:29] LABS: BLOOD UREA NITROGEN 69.1 mg/dL (7-18); CO2 27 mmol/L (21-32); GLUCOSE,RANDOM 224 mg/dL (74-106)
[2022-11-25 19:33] LABS: CREATININE 2.2 mg/dL (0.55-1.3)
[2022-11-25 19:35] LABS: ANION GAP 4 MMOL/L (8-16); CALCIUM 6.8 mg/dL (8.5-10.1); SODIUM 164 mmol/L (136-145)
[2022-11-25 21:07] LABS: ANTIGLOMERULAR BASEMENT MEN.AB <0.2 units (0.0-0.9); ATYPICAL pANCA <1:20 titer (Neg:<1:20); C-ANCA <1:20 titer (Neg:<1:20)
[2022-11-25] MEDS: AMINO ACIDS 4.25%/D5W 1,000 ML IV SCH (21:48)
[2022-11-25] MEDS: SENNOSIDES 8.6MG TABLET (FP) PO SCH ×2 (21:50→22:05)
[2022-11-26] MEDS: KCL 10 MEQ IVPB 10 MEQ/100 ML INFUS.BAG IVPB SCH ×5 (00:54→18:56)
[2022-11-26] MEDS: MAG HYDROX/ALH/SMC/DPHA/LIDO 240 ML MOUTHWASH MM SCH ×5 (00:54→23:48)
[2022-11-26] MEDS: INSULIN SLIDING SCALE (NOVOLOG) 1 VIAL SQ SCH ×4 (06:25→21:39)
[2022-11-26] MEDS: INSULIN (LEVEMIR) 100 UNITS/ML UNITS SQ SCH ×2 (06:25→22:42)
[2022-11-26] MEDS: INSULIN (NOVOLOG) ASPART 100 UNITS/ML 10ML VIAL SQ SCH ×3 (06:25→16:48)
[2022-11-26] MEDS: HEPARIN NA (PORCINE) 5,000 UNITS/ML 1ML VIAL SQ SCH ×3 (06:26→21:25)
[2022-11-26] MEDS: TAMSULOSIN HCL 0.4 MG CAP PO SCH (08:57)
[2022-11-26 09:30] LABS: HEMOGLOBIN 9.6 GM/dL (11.7-16.9); MCH 29.2 pg (25.7-33.7); MEAN CELL VOLUME 88.5 fl (80-96); MEAN PLT VOLUME 11.3 fl (7.5-11.1); PLATELET COUNT 113 10^3/uL (134-434); RBC 3.27 M/mm3 (4.00-5.60); RDW 14.6 % (11.9-15.9); WHITE BLOOD COUNT 10.3 K/mm3 (4.0-10.0)
[2022-11-26 09:55] LABS: CHLORIDE 135 mmol/L (98-107)
[2022-11-26 10:29] LABS: BLOOD UREA NITROGEN 70.9 mg/dL (7-18); CO2 27 mmol/L (21-32); GLUCOSE,RANDOM 201 mg/dL (74-106); MAGNESIUM 2.2 mg/dL (1.8-2.4)
[2022-11-26 10:34] LABS: CREATININE 2.4 mg/dL (0.55-1.3); PHOSPHOROUS 3.5 mg/dL (2.5-4.9)
[2022-11-26 10:35] LABS: ANION GAP 6 MMOL/L (8-16); CALCIUM 6.8 mg/dL (8.5-10.1); SODIUM 169 mmol/L (136-145)
[2022-11-26] MEDS: DEXTROSE 5%-WATER - 1,000 ML IV SCH (11:40)
[2022-11-26] MEDS: AMINO ACIDS 4.25%/D5W 1,000 ML IV SCH ×2 (11:41→22:47)
[2022-11-26 12:02] LABS: CHLORIDE 135 mmol/L (98-107)
[2022-11-26 12:07] LABS: BLOOD UREA NITROGEN 67.8 mg/dL (7-18); CO2 27 mmol/L (21-32); GLUCOSE,RANDOM 129 mg/dL (74-106)
[2022-11-26 12:09] LABS: CREATININE 2.4 mg/dL (0.55-1.3)
[2022-11-26] MEDS: CASPOFUNGIN ACETATE 50 MG in SODIUM CHLORIDE 250 ML IVPB SCH (12:10)
[2022-11-26 12:12] LABS: ANION GAP 3 MMOL/L (8-16); CALCIUM 6.6 mg/dL (8.5-10.1); SODIUM 165 mmol/L (136-145)
[2022-11-26] MEDS ORDERED: ACETAMINOPHEN 325 MG TABLET (FP) PO PRN (15:41)
[2022-11-26] MEDS ORDERED: ACETAMINOPHEN 1000 MG/100 ML BAG IVPB ONE (21:01)
[2022-11-26] MEDS ORDERED: KCL 10 MEQ IVPB 10 MEQ/100 ML INFUS.BAG IVPB SCH (21:30)
[2022-11-26] MEDS: SENNOSIDES 8.6MG TABLET (FP) PO SCH (22:00)
[2022-11-27] MEDS: DEXTROSE 5%-WATER - 1,000 ML IV SCH ×3 (04:57→21:40)
[2022-11-27] MEDS: HEPARIN NA (PORCINE) 5,000 UNITS/ML 1ML VIAL SQ SCH ×3 (06:17→21:36)
[2022-11-27] MEDS: INSULIN SLIDING SCALE (NOVOLOG) 1 VIAL SQ SCH ×4 (06:22→21:37)
[2022-11-27] MEDS: MAG HYDROX/ALH/SMC/DPHA/LIDO 240 ML MOUTHWASH MM SCH ×3 (06:22→17:55)
[2022-11-27] MEDS: INSULIN (NOVOLOG) ASPART 100 UNITS/ML 10ML VIAL SQ SCH ×3 (06:23→16:28)
[2022-11-27] MEDS: INSULIN (LEVEMIR) 100 UNITS/ML UNITS SQ SCH ×2 (06:33→23:37)
[2022-11-27 09:04] LABS: CHLORIDE 132 mmol/L (98-107)
[2022-11-27 09:08] LABS: BLOOD UREA NITROGEN 72.2 mg/dL (7-18); CO2 25 mmol/L (21-32); GLUCOSE,RANDOM 270 mg/dL (74-106)
[2022-11-27 09:10] LABS: CREATININE 2.7 mg/dL (0.55-1.3); SGOT/AST 45 U/L (15-37); SGPT/ALT 65 U/L (13-61)
[2022-11-27 09:11] LABS: BILIRUBIN,TOTAL 0.7 mg/dL (0.2-1); TOT PROT 5.7 g/dl (6.4-8.2)
[2022-11-27 09:32] LABS: ALBUMIN 1.5 g/dl (3.4-5.0); ALK PHOS 208 U/L (45-117); ANION GAP 5 MMOL/L (8-16); CALCIUM 6.3 mg/dL (8.5-10.1); SODIUM 161 mmol/L (136-145)
[2022-11-27] MEDS: KCL 10 MEQ IVPB 10 MEQ/100 ML INFUS.BAG IVPB SCH ×7 (10:37→18:05)
[2022-11-27] MEDS: TAMSULOSIN HCL 0.4 MG CAP PO SCH (10:37)
[2022-11-27] MEDS: AMINO ACIDS 4.25%/D5W 1,000 ML IV SCH (10:53)
[2022-11-27] MEDS: CALCIUM 500MG/VIT-D 200 UNITS COMBO TABLET (FP) PO SCH ×2 (11:10→21:37)
[2022-11-27] MEDS ORDERED: BENZOCAINE/MENTH/CETYLPYRD CL 1 EACH LOZENGE MM PRN (11:33)
[2022-11-27] MEDS: CASPOFUNGIN ACETATE 50 MG in SODIUM CHLORIDE 250 ML IVPB SCH (12:42)
[2022-11-27] MEDS: POTASSIUM CHLORIDE 20 MEQ in AMINO ACIDS 4.25%/D5W 1,000 ML IV SCH (14:26)
[2022-11-27] MEDS ORDERED: DEXTROSE 50%-WATER - 25 GM/50 ML VIAL IVPUSH ONE (17:28)
[2022-11-27] MEDS: SENNOSIDES 8.6MG TABLET (FP) PO SCH (21:37)
[2022-11-28] MEDS: MAG HYDROX/ALH/SMC/DPHA/LIDO 240 ML MOUTHWASH MM SCH ×4 (00:15→18:07)
[2022-11-28] MEDS ORDERED: INSULIN REGULAR HUMAN 100 UNITS/ML *VIAL IVPUSH ONE (05:43)
[2022-11-28] MEDS ORDERED: INSULIN (NOVOLOG) ASPART 100 UNITS/ML 10ML VIAL SQ ONE (05:53)
[2022-11-28] MEDS: LIDOCAINE VISCOUS 2% ORAL/TOP 15 ML UNIT-DOSE CUP MM PRN (05:53)
[2022-11-28] MEDS: HEPARIN NA (PORCINE) 5,000 UNITS/ML 1ML VIAL SQ SCH ×3 (05:53→22:10)
[2022-11-28] MEDS: DEXTROSE 5%-WATER - 1,000 ML IV SCH ×2 (06:11→10:16)
[2022-11-28] MEDS: INSULIN SLIDING SCALE (NOVOLOG) 1 VIAL SQ SCH ×4 (06:59→22:10)
[2022-11-28] MEDS ORDERED: INSULIN (LEVEMIR) 100 UNITS/ML UNITS SQ SCH (07:00)
[2022-11-28] MEDS: CALCIUM 500MG/VIT-D 200 UNITS COMBO TABLET (FP) PO SCH ×2 (10:10→23:05)
[2022-11-28] MEDS: TAMSULOSIN HCL 0.4 MG CAP PO SCH (10:10)
[2022-11-28] MEDS: CASPOFUNGIN ACETATE 50 MG in SODIUM CHLORIDE 250 ML IVPB SCH (12:39)
[2022-11-28] MEDS: POTASSIUM CHLORIDE 20 MEQ in AMINO ACIDS 4.25%/D5W 1,000 ML IV SCH ×2 (14:17→21:32)
[2022-11-28 17:00] LABS: BASO % 0.7 % (0-2.0); EOS % 2.3 % (0-4.5); HEMATOCRIT 26.2 % (35.4-49); HEMOGLOBIN 8.5 GM/dL (11.7-16.9); LYMPH % 15.1 % (8-40); MCH 28.7 pg (25.7-33.7); MCHC 32.6 g/dl (32.0-35.9); MEAN CELL VOLUME 88.1 fl (80-96); MEAN PLT VOLUME 10.9 fl (7.5-11.1); MONO % 3.2 % (3.8-10.2); NEUT % 78.7 % (42.8-82.8); PLATELET COUNT 133 10^3/uL (134-434); RBC 2.97 M/mm3 (4.00-5.60); RDW 14.1 % (11.9-15.9); WHITE BLOOD COUNT 5.4 K/mm3 (4.0-10.0)
[2022-11-28 17:29] LABS: CHLORIDE 131 mmol/L (98-107)
[2022-11-28 17:33] LABS: ALBUMIN 1.5 g/dl (3.4-5.0); BLOOD UREA NITROGEN 62.9 mg/dL (7-18); CO2 26 mmol/L (21-32); GLUCOSE,RANDOM 143 mg/dL (74-106)
[2022-11-28 17:36] LABS: SGPT/ALT 58 U/L (13-61)
[2022-11-28 17:37] LABS: CREATININE 2.3 mg/dL (0.55-1.3); SGOT/AST 39 U/L (15-37)
[2022-11-28 17:38] LABS: BILIRUBIN,TOTAL 0.5 mg/dL (0.2-1); TOT PROT 5.8 g/dl (6.4-8.2)
[2022-11-28 17:39] LABS: ALK PHOS 212 U/L (45-117)
[2022-11-28 18:16] LABS: ANION GAP 4 MMOL/L (8-16); CALCIUM 6.7 mg/dL (8.5-10.1); SODIUM 160 mmol/L (136-145)
[2022-11-28] MEDS: KCL 10 MEQ IVPB 10 MEQ/100 ML INFUS.BAG IVPB SCH ×3 (19:29→22:09)
[2022-11-28 20:14] LABS: EPI CELLS 19 /uL (0-25.1); HYALINE CASTS 0 /uL (0-3.1); URINE APPEARANCE CLEAR; URINE BACTERIA 8 /uL (0-1359); URINE BILIRUBIN NEGATIVE (NEGATIVE); URINE COLOR YELLOW; URINE GLUCOSE (UA) NEGATIVE (NEGATIVE); URINE KETONE NEGATIVE (NEGATIVE); URINE LEUK ESTERASE 2+ (NEGATIVE); URINE NITRITE NEGATIVE (NEGATIVE); URINE PROTEIN TRACE (NEGATIVE); URINE RBC 24 /uL (0-23.9); URINE UROBILINOGEN 0.2 mg/dL (0.2-1.0); URINE WBC 71 /uL (0-25.8)
[2022-11-28] MEDS: SENNOSIDES 8.6MG TABLET (FP) PO SCH (22:11)
[2022-11-28] MEDS ORDERED: DEXTROSE 50%-WATER - 25 GM/50 ML VIAL IVPUSH ONE (23:55)
[2022-11-29] MEDS ORDERED: POTASSIUM CHLORIDE ORAL LIQUID 20 MEQ/15 ML PO ONE (00:15)
[2022-11-29] MEDS: KCL 10 MEQ IVPB 10 MEQ/100 ML INFUS.BAG IVPB SCH (00:19)
[2022-11-29] MEDS: MAG HYDROX/ALH/SMC/DPHA/LIDO 240 ML MOUTHWASH MM SCH ×3 (00:20→12:36)
[2022-11-29] MEDS: INSULIN SLIDING SCALE (NOVOLOG) 1 VIAL SQ SCH ×4 (06:57→22:22)
[2022-11-29] MEDS: HEPARIN NA (PORCINE) 5,000 UNITS/ML 1ML VIAL SQ SCH ×3 (06:57→22:21)
[2022-11-29 08:00] LABS: BASO % 0.5 % (0-2.0); EOS % 1.4 % (0-4.5); HEMATOCRIT 28.1 % (35.4-49); HEMOGLOBIN 8.9 GM/dL (11.7-16.9); LYMPH % 14.1 % (8-40); MCH 28.4 pg (25.7-33.7); MCHC 31.7 g/dl (32.0-35.9); MEAN CELL VOLUME 89.6 fl (80-96); MEAN PLT VOLUME 10.5 fl (7.5-11.1); MONO % 3.3 % (3.8-10.2); NEUT % 80.7 % (42.8-82.8); PLATELET COUNT 138 10^3/uL (134-434); RBC 3.14 M/mm3 (4.00-5.60); RDW 14.1 % (11.9-15.9); WHITE BLOOD COUNT 4.4 K/mm3 (4.0-10.0)
[2022-11-29 08:35] LABS: CHLORIDE 136 mmol/L (98-107)
[2022-11-29 08:53] LABS: ALBUMIN 1.6 g/dl (3.4-5.0); BLOOD UREA NITROGEN 60.9 mg/dL (7-18); CO2 21 mmol/L (21-32); GLUCOSE,RANDOM 252 mg/dL (74-106)
[2022-11-29 08:57] LABS: CREATININE 2.4 mg/dL (0.55-1.3); SGOT/AST 51 U/L (15-37); SGPT/ALT 61 U/L (13-61)
[2022-11-29 08:58] LABS: BILIRUBIN,TOTAL 0.5 mg/dL (0.2-1); TOT PROT 6.1 g/dl (6.4-8.2)
[2022-11-29 09:11] LABS: ALK PHOS 300 U/L (45-117); ANION GAP 5 MMOL/L (8-16); SODIUM 163 mmol/L (136-145)
[2022-11-29] MEDS: TAMSULOSIN HCL 0.4 MG CAP PO SCH (10:14)
[2022-11-29] MEDS: CALCIUM 500MG/VIT-D 200 UNITS COMBO TABLET (FP) PO SCH ×2 (10:14→22:21)
[2022-11-29] MEDS: DEXTROSE 5%-WATER - 1,000 ML IV SCH (10:37)
[2022-11-29] MEDS: CASPOFUNGIN ACETATE 50 MG in SODIUM CHLORIDE 250 ML IVPB SCH (11:20)
[2022-11-29] MEDS: INSULIN (LEVEMIR) 100 UNITS/ML UNITS SQ SCH (11:53)
[2022-11-29 13:07] LABS: CHOLESTEROL 102 mg/dL (50-200)
[2022-11-29 13:08] LABS: LDL CHOLESTEROL (ONLY SJRH) 70 mg/dL (5-100); TRIGLYCERIDES 220 mg/dL (0-150)
[2022-11-29 13:10] LABS: HDL CHOLESTEROL 11 mg/dL (40-60)
[2022-11-29] MEDS: POLYETHYLENE GLYCOL (HEALTHYLAX) 3350 17 GM PACKET PO SCH ×2 (14:36→22:21)
[2022-11-29] MEDS: NYSTATIN 500,000 UNITS/5 ML SUSPENSION PO SCH (18:38)
[2022-11-29] MEDS: SENNOSIDES 8.6MG TABLET (FP) PO SCH (22:21)
[2022-11-30] MEDS: POTASSIUM CHLORIDE 20 MEQ in AMINO ACIDS 4.25%/D5W 1,000 ML IV SCH ×3 (00:38→16:25)
[2022-11-30] MEDS: NYSTATIN 500,000 UNITS/5 ML SUSPENSION PO SCH ×5 (00:38→23:28)
[2022-11-30] MEDS: DEXTROSE 5%-WATER - 1,000 ML IV SCH ×3 (00:40→23:24)
[2022-11-30] MEDS: MAG HYDROX/ALH/SMC/DPHA/LIDO 240 ML MOUTHWASH MM SCH ×5 (00:40→23:25)
[2022-11-30] MEDS: HEPARIN NA (PORCINE) 5,000 UNITS/ML 1ML VIAL SQ SCH ×3 (06:49→21:29)
[2022-11-30] MEDS: POLYETHYLENE GLYCOL (HEALTHYLAX) 3350 17 GM PACKET PO SCH ×3 (06:49→21:29)
[2022-11-30] MEDS: INSULIN SLIDING SCALE (NOVOLOG) 1 VIAL SQ SCH ×4 (06:52→21:28)
[2022-11-30] MEDS: INSULIN (LEVEMIR) 100 UNITS/ML UNITS SQ SCH (06:52)
[2022-11-30] MEDS: TAMSULOSIN HCL 0.4 MG CAP PO SCH (10:21)
[2022-11-30] MEDS: CALCIUM 500MG/VIT-D 200 UNITS COMBO TABLET (FP) PO SCH ×2 (10:21→21:29)
[2022-11-30] MEDS: PANTOPRAZOLE 40 MG TABLET PO SCH (10:21)
[2022-11-30] MEDS: CASPOFUNGIN ACETATE 50 MG in SODIUM CHLORIDE 250 ML IVPB SCH (10:31)
[2022-11-30 11:15] LABS: BASO % 0.8 % (0-2.0); EOS % 1.9 % (0-4.5); HEMATOCRIT 28.8 % (35.4-49); HEMOGLOBIN 9.4 GM/dL (11.7-16.9); LYMPH % 19.3 % (8-40); MCH 29.7 pg (25.7-33.7); MCHC 32.7 g/dl (32.0-35.9); MEAN CELL VOLUME 90.8 fl (80-96); MONO % 3.2 % (3.8-10.2); NEUT % 74.8 % (42.8-82.8); PLATELET COUNT 197 10^3/uL (134-434); RBC 3.18 M/mm3 (4.00-5.60); RDW 14.1 % (11.9-15.9); WHITE BLOOD COUNT 4.5 K/mm3 (4.0-10.0)
[2022-11-30 11:24] LABS: INR 1.38 (0.83-1.09)
[2022-11-30 11:34] LABS: CHLORIDE 135 mmol/L (98-107)
[2022-11-30 11:38] LABS: CALCIUM 7.9 mg/dL (8.5-10.1); GLUCOSE,RANDOM 318 mg/dL (74-106)
[2022-11-30 11:39] LABS: ALBUMIN 1.8 g/dl (3.4-5.0); BLOOD UREA NITROGEN 61.5 mg/dL (7-18); CO2 25 mmol/L (21-32)
[2022-11-30 11:42] LABS: CREATININE 2.5 mg/dL (0.55-1.3); SGOT/AST 38 U/L (15-37)
[2022-11-30 11:43] LABS: BILIRUBIN,TOTAL 0.4 mg/dL (0.2-1)
[2022-11-30 11:47] LABS: SGPT/ALT 63 U/L (13-61)
[2022-11-30 12:07] LABS: GAMMA GLUTAMYL TRANSPEPTIDASE 166 U/L (5-85)
[2022-11-30 12:19] LABS: ALK PHOS 337 U/L (45-117); ANION GAP 4 MMOL/L (8-16); SODIUM 164 mmol/L (136-145)
[2022-11-30] MEDS ORDERED: HYDROCHLOROTHIAZIDE 25 MG TABLET (FP) PO ONE (17:11)
[2022-11-30] MEDS: SENNOSIDES 8.6MG TABLET (FP) PO SCH (21:30)
[2022-12-01] MEDS: MAG HYDROX/ALH/SMC/DPHA/LIDO 240 ML MOUTHWASH MM SCH ×3 (06:36→17:47)
[2022-12-01] MEDS: POLYETHYLENE GLYCOL (HEALTHYLAX) 3350 17 GM PACKET PO SCH ×3 (06:36→21:46)
[2022-12-01] MEDS: NYSTATIN 500,000 UNITS/5 ML SUSPENSION PO SCH ×3 (06:36→17:46)
[2022-12-01] MEDS: INSULIN SLIDING SCALE (NOVOLOG) 1 VIAL SQ SCH ×4 (06:36→21:46)
[2022-12-01] MEDS: INSULIN (LEVEMIR) 100 UNITS/ML UNITS SQ SCH (06:39)
[2022-12-01] MEDS: HEPARIN NA (PORCINE) 5,000 UNITS/ML 1ML VIAL SQ SCH ×3 (07:23→21:38)
[2022-12-01] MEDS: LIDOCAINE VISCOUS 2% ORAL/TOP 15 ML UNIT-DOSE CUP MM PRN (11:38)
[2022-12-01] MEDS: PANTOPRAZOLE 40 MG TABLET PO SCH (11:39)
[2022-12-01] MEDS: CALCIUM 500MG/VIT-D 200 UNITS COMBO TABLET (FP) PO SCH ×2 (11:39→21:38)
[2022-12-01] MEDS: TAMSULOSIN HCL 0.4 MG CAP PO SCH (11:39)
[2022-12-01] MEDS: CASPOFUNGIN ACETATE 50 MG in SODIUM CHLORIDE 250 ML IVPB SCH (11:41)
[2022-12-01 13:19] LABS: BASO % 0.8 % (0-2.0); EOS % 2.8 % (0-4.5); HEMATOCRIT 27.7 % (35.4-49); HEMOGLOBIN 9.2 GM/dL (11.7-16.9); LYMPH % 21.9 % (8-40); MCH 29.7 pg (25.7-33.7); MCHC 33.3 g/dl (32.0-35.9); MEAN CELL VOLUME 89.2 fl (80-96); MEAN PLT VOLUME 10.9 fl (7.5-11.1); MONO % 4.5 % (3.8-10.2); PLATELET COUNT 189 10^3/uL (134-434); RDW 13.4 % (11.9-15.9); WHITE BLOOD COUNT 5.6 K/mm3 (4.0-10.0)
[2022-12-01 14:04] LABS: ALBUMIN 1.8 g/dl (3.4-5.0); BLOOD UREA NITROGEN 51.5 mg/dL (7-18); CALCIUM 7.9 mg/dL (8.5-10.1)
[2022-12-01 14:07] LABS: CREATININE 2.2 mg/dL (0.55-1.3)
[2022-12-01 14:09] LABS: BILIRUBIN,TOTAL 0.4 mg/dL (0.2-1); TOT PROT 6.9 g/dl (6.4-8.2)
[2022-12-01] MEDS: DEXTROSE 5%-WATER - 1,000 ML IV SCH ×2 (14:19→22:43)
[2022-12-01] MEDS: POTASSIUM CHLORIDE 20 MEQ in AMINO ACIDS 4.25%/D5W 1,000 ML IV SCH (14:23)
[2022-12-01] MEDS: SENNOSIDES 8.6MG TABLET (FP) PO SCH (21:40)
[2022-12-02] MEDS: NYSTATIN 500,000 UNITS/5 ML SUSPENSION PO SCH ×4 (01:15→18:44)
[2022-12-02] MEDS: MAG HYDROX/ALH/SMC/DPHA/LIDO 240 ML MOUTHWASH MM SCH ×4 (01:16→18:44)
[2022-12-02] MEDS: POLYETHYLENE GLYCOL (HEALTHYLAX) 3350 17 GM PACKET PO SCH ×4 (05:53→22:32)
[2022-12-02] MEDS: HEPARIN NA (PORCINE) 5,000 UNITS/ML 1ML VIAL SQ SCH ×2 (05:53→15:05)
[2022-12-02] MEDS: INSULIN (LEVEMIR) 100 UNITS/ML UNITS SQ SCH (06:02)
[2022-12-02] MEDS: INSULIN SLIDING SCALE (NOVOLOG) 1 VIAL SQ SCH ×4 (06:04→22:51)
[2022-12-02 08:41] LABS: BASO % 0.8 % (0-2.0); EOS % 2.6 % (0-4.5); HEMATOCRIT 25.4 % (35.4-49); HEMOGLOBIN 8.4 GM/dL (11.7-16.9); LYMPH % 19.9 % (8-40); MCH 28.6 pg (25.7-33.7); MEAN CELL VOLUME 86.6 fl (80-96); MEAN PLT VOLUME 10.3 fl (7.5-11.1); MONO % 3.3 % (3.8-10.2); NEUT % 73.4 % (42.8-82.8); PLATELET COUNT 175 10^3/uL (134-434); RBC 2.93 M/mm3 (4.00-5.60); RDW 13.4 % (11.9-15.9); WHITE BLOOD COUNT 4.9 K/mm3 (4.0-10.0)
[2022-12-02 08:58] LABS: CHLORIDE 124 mmol/L (98-107); SODIUM 154 mmol/L (136-145)
[2022-12-02 09:02] LABS: GLUCOSE,RANDOM 323 mg/dL (74-106)
[2022-12-02 09:03] LABS: ALBUMIN 1.7 g/dl (3.4-5.0); CALCIUM 7.7 mg/dL (8.5-10.1); CO2 26 mmol/L (21-32)
[2022-12-02 09:04] LABS: BLOOD UREA NITROGEN 50.8 mg/dL (7-18)
[2022-12-02 09:06] LABS: CREATININE 2.4 mg/dL (0.55-1.3); SGOT/AST 22 U/L (15-37); SGPT/ALT 44 U/L (13-61)
[2022-12-02 09:07] LABS: BILIRUBIN,TOTAL 0.5 mg/dL (0.2-1); TOT PROT 6.5 g/dl (6.4-8.2)
[2022-12-02 09:10] LABS: ALK PHOS 270 U/L (45-117); ANION GAP 4 MMOL/L (8-16)
[2022-12-02] MEDS: CALCIUM 500MG/VIT-D 200 UNITS COMBO TABLET (FP) PO SCH ×3 (12:04→22:32)
[2022-12-02] MEDS: TAMSULOSIN HCL 0.4 MG CAP PO SCH (12:04)
[2022-12-02] MEDS: PANTOPRAZOLE 40 MG TABLET PO SCH (12:05)
[2022-12-02] MEDS: DEXTROSE 5%-WATER - 1,000 ML IV SCH (12:05)
[2022-12-02] MEDS: CASPOFUNGIN ACETATE 50 MG in SODIUM CHLORIDE 250 ML IVPB SCH (12:21)
[2022-12-02] MEDS: POTASSIUM CHLORIDE 20 MEQ in AMINO ACIDS 4.25%/D5W 1,000 ML IV SCH (14:28)
[2022-12-02] MEDS ORDERED: POTASSIUM CHLORIDE ORAL LIQUID 20 MEQ/15 ML PO ONE (16:14)
[2022-12-02] MEDS: KCL 10 MEQ IVPB 10 MEQ/100 ML INFUS.BAG IVPB SCH ×4 (17:12→22:01)
[2022-12-02] MEDS: SENNOSIDES 8.6MG TABLET (FP) PO SCH (22:22)
[2022-12-03] MEDS: DEXTROSE 5%-WATER - 1,000 ML IV SCH ×2 (00:41→11:10)
[2022-12-03] MEDS: NYSTATIN 500,000 UNITS/5 ML SUSPENSION PO SCH ×4 (00:58→18:35)
[2022-12-03] MEDS: MAG HYDROX/ALH/SMC/DPHA/LIDO 240 ML MOUTHWASH MM SCH ×4 (00:58→18:34)
[2022-12-03] MEDS: POLYETHYLENE GLYCOL (HEALTHYLAX) 3350 17 GM PACKET PO SCH ×3 (06:36→21:11)
[2022-12-03] MEDS: INSULIN (LEVEMIR) 100 UNITS/ML UNITS SQ SCH (06:39)
[2022-12-03] MEDS: INSULIN SLIDING SCALE (NOVOLOG) 1 VIAL SQ SCH ×4 (06:40→21:14)
[2022-12-03 09:48] LABS: CHLORIDE 124 mmol/L (98-107); SODIUM 153 mmol/L (136-145)
[2022-12-03 10:15] LABS: BLOOD UREA NITROGEN 50.2 mg/dL (7-18); CALCIUM 7.6 mg/dL (8.5-10.1); CO2 21 mmol/L (21-32); GLUCOSE,RANDOM 372 mg/dL (74-106)
[2022-12-03 10:19] LABS: CREATININE 2.1 mg/dL (0.55-1.3)
[2022-12-03 10:20] LABS: ANION GAP 7 MMOL/L (8-16)
[2022-12-03] MEDS: PANTOPRAZOLE 40 MG TABLET PO SCH (11:09)
[2022-12-03] MEDS: CALCIUM 500MG/VIT-D 200 UNITS COMBO TABLET (FP) PO SCH ×3 (11:09→22:06)
[2022-12-03] MEDS: TAMSULOSIN HCL 0.4 MG CAP PO SCH (11:09)
[2022-12-03] MEDS: CASPOFUNGIN ACETATE 50 MG in SODIUM CHLORIDE 250 ML IVPB SCH (12:19)
[2022-12-03] MEDS: POTASSIUM CHLORIDE 20 MEQ in AMINO ACIDS 4.25%/D5W 1,000 ML IV SCH ×2 (12:22→17:21)
[2022-12-03] MEDS: KCL 10 MEQ IVPB 10 MEQ/100 ML INFUS.BAG IVPB SCH ×4 (13:47→21:59)
[2022-12-03] MEDS ORDERED: POTASSIUM CHLORIDE 20 MEQ in AMINO ACIDS 4.25%/D5W 1,000 ML IV SCH (14:25)
[2022-12-03] MEDS ORDERED: POTASSIUM CHLORIDE 10 MEQ in DEXTROSE 5%-WATER - 1,000 ML IV SCH (15:00)
[2022-12-03] MEDS: POTASSIUM CHLORIDE ORAL LIQUID 20 MEQ/15 ML PO SCH ×2 (16:30→22:06)
[2022-12-03] MEDS: POTASSIUM CHLORIDE 10 MEQ in DEXTROSE 5%-WATER - 1,000 ML IV SCH (17:17)
[2022-12-03] MEDS ORDERED: KCL 10 MEQ IVPB 10 MEQ/100 ML INFUS.BAG IVPB SCH (21:45)
[2022-12-03] MEDS: SENNOSIDES 8.6MG TABLET (FP) PO SCH ×2 (22:00→22:07)
[2022-12-04] MEDS: POTASSIUM CHLORIDE 10 MEQ in DEXTROSE 5%-WATER - 1,000 ML IV SCH ×5 (01:12→23:05)
[2022-12-04] MEDS: MAG HYDROX/ALH/SMC/DPHA/LIDO 240 ML MOUTHWASH MM SCH ×4 (02:47→18:01)
[2022-12-04] MEDS: NYSTATIN 500,000 UNITS/5 ML SUSPENSION PO SCH ×4 (02:48→18:01)
[2022-12-04] MEDS: POLYETHYLENE GLYCOL (HEALTHYLAX) 3350 17 GM PACKET PO SCH ×3 (06:19→21:26)
[2022-12-04] MEDS: INSULIN (LEVEMIR) 100 UNITS/ML UNITS SQ SCH (07:08)
[2022-12-04] MEDS: INSULIN SLIDING SCALE (NOVOLOG) 1 VIAL SQ SCH ×4 (07:09→21:40)
[2022-12-04] MEDS: PANTOPRAZOLE 40 MG TABLET PO SCH (10:14)
[2022-12-04] MEDS: CALCIUM 500MG/VIT-D 200 UNITS COMBO TABLET (FP) PO SCH ×2 (10:14→21:29)
[2022-12-04] MEDS: TAMSULOSIN HCL 0.4 MG CAP PO SCH (10:14)
[2022-12-04] MEDS: POTASSIUM CHLORIDE ORAL LIQUID 20 MEQ/15 ML PO SCH ×2 (10:14→21:33)
[2022-12-04 11:23] LABS: CHLORIDE 124 mmol/L (98-107); SODIUM 152 mmol/L (136-145)
[2022-12-04 11:25] LABS: CALCIUM 7.3 mg/dL (8.5-10.1)
[2022-12-04] MEDS ORDERED: INSULIN (NOVOLOG) ASPART 100 UNITS/ML 10ML VIAL ONE (11:25)
[2022-12-04 11:26] LABS: ALBUMIN 1.7 g/dl (3.4-5.0); ANION GAP 6 MMOL/L (8-16); BLOOD UREA NITROGEN 41.5 mg/dL (7-18); CO2 21 mmol/L (21-32); MAGNESIUM 2.1 mg/dL (1.8-2.4)
[2022-12-04 11:29] LABS: CREATININE 1.8 mg/dL (0.55-1.3); SGOT/AST 23 U/L (15-37); SGPT/ALT 40 U/L (13-61)
[2022-12-04] MEDS: CASPOFUNGIN ACETATE 50 MG in SODIUM CHLORIDE 250 ML IVPB SCH (11:29)
[2022-12-04 11:30] LABS: BILIRUBIN,TOTAL 0.5 mg/dL (0.2-1); TOT PROT 6.5 g/dl (6.4-8.2)
[2022-12-04 11:32] LABS: ALK PHOS 244 U/L (45-117)
[2022-12-04 11:39] LABS: GLUCOSE,RANDOM 416 mg/dL (74-106)
[2022-12-04] MEDS: HEPARIN NA (PORCINE) 5,000 UNITS/ML 1ML VIAL SQ SCH ×2 (13:39→21:26)
[2022-12-04] MEDS: KCL 10 MEQ IVPB 10 MEQ/100 ML INFUS.BAG IVPB SCH ×4 (13:39→16:53)
[2022-12-04] MEDS: POTASSIUM CHLORIDE 20 MEQ in AMINO ACIDS 4.25%/D5W 1,000 ML IV SCH (14:54)
[2022-12-04] MEDS: FAT EMULSION/OLIVE/SOY/PHOSPHO 250 ML IV SCH (21:26)
[2022-12-04] MEDS: SENNOSIDES 8.6MG TABLET (FP) PO SCH (21:30)
[2022-12-04] MEDS ORDERED: FAT EMULSION/OLIVE/SOY (CLINOLIPID) 250 ML EMULSION IV SCH (22:00)
[2022-12-04] MEDS ORDERED: INSULIN (LEVEMIR) 100 UNITS/ML UNITS SQ SCH (22:00)
[2022-12-05] MEDS: MAG HYDROX/ALH/SMC/DPHA/LIDO 240 ML MOUTHWASH MM SCH ×4 (00:18→17:54)
[2022-12-05] MEDS: NYSTATIN 500,000 UNITS/5 ML SUSPENSION PO SCH ×4 (00:19→17:54)
[2022-12-05 04:05] LABS: CHLORIDE 130 mmol/L (98-107); SODIUM 156 mmol/L (136-145)
[2022-12-05 04:06] LABS: CALCIUM 7.2 mg/dL (8.5-10.1)
[2022-12-05 04:07] LABS: BLOOD UREA NITROGEN 38.2 mg/dL (7-18); CO2 21 mmol/L (21-32); GLUCOSE,RANDOM 98 mg/dL (74-106)
[2022-12-05 04:10] LABS: CREATININE 1.6 mg/dL (0.55-1.3); PHOSPHOROUS 2.2 mg/dL (2.5-4.9)
[2022-12-05 04:17] LABS: ANION GAP 5 MMOL/L (8-16)
[2022-12-05] MEDS: KCL 10 MEQ IVPB 10 MEQ/100 ML INFUS.BAG IVPB SCH ×3 (05:42→08:30)
[2022-12-05] MEDS: HEPARIN NA (PORCINE) 5,000 UNITS/ML 1ML VIAL SQ SCH ×3 (05:43→21:45)
[2022-12-05] MEDS: POLYETHYLENE GLYCOL (HEALTHYLAX) 3350 17 GM PACKET PO SCH ×3 (05:44→21:44)
[2022-12-05] MEDS: INSULIN SLIDING SCALE (NOVOLOG) 1 VIAL SQ SCH ×4 (06:44→21:45)
[2022-12-05] MEDS: INSULIN (LEVEMIR) 100 UNITS/ML UNITS SQ SCH ×2 (06:44→21:46)
[2022-12-05] MEDS ORDERED: INSULIN (NOVOLOG) ASPART 100 UNITS/ML 10ML VIAL ONE (07:00)
[2022-12-05] MEDS ORDERED: INSULIN (LEVEMIR) 100 UNITS/ML UNITS SQ ONE (07:00)
[2022-12-05] MEDS: TAMSULOSIN HCL 0.4 MG CAP PO SCH (08:27)
[2022-12-05 09:19] LABS: EPI CELLS 15 /uL (0-25.1); HYALINE CASTS 2 /uL (0-3.1); PH,URINE 5.5 (5.0-8.0); URINE APPEARANCE CLEAR; URINE BACTERIA 6 /uL (0-1359); URINE BILIRUBIN NEGATIVE (NEGATIVE); URINE COLOR YELLOW; URINE GLUCOSE (UA) NEGATIVE (NEGATIVE); URINE KETONE NEGATIVE (NEGATIVE); URINE LEUK ESTERASE 2+ (NEGATIVE); URINE NITRITE NEGATIVE (NEGATIVE); URINE PROTEIN 1+ (NEGATIVE); URINE RBC 16 /uL (0-23.9); URINE UROBILINOGEN 0.2 mg/dL (0.2-1.0); URINE WBC 169 /uL (0-25.8)
[2022-12-05] MEDS: CALCIUM 500MG/VIT-D 200 UNITS COMBO TABLET (FP) PO SCH ×2 (10:30→21:44)
[2022-12-05] MEDS: PANTOPRAZOLE 40 MG TABLET PO SCH (10:31)
[2022-12-05] MEDS: POTASSIUM CHLORIDE ORAL LIQUID 20 MEQ/15 ML PO SCH ×3 (10:31→22:08)
[2022-12-05] MEDS: CASPOFUNGIN ACETATE 50 MG in SODIUM CHLORIDE 250 ML IVPB SCH (11:47)
[2022-12-05] MEDS: POTASSIUM CHLORIDE 10 MEQ in AMINO ACIDS 4.25%/D5W 1,000 ML IV SCH (11:52)
[2022-12-05 12:01] LABS: BASO % 0.6 % (0-2.0); HEMATOCRIT 27.5 % (35.4-49); HEMOGLOBIN 9.1 GM/dL (11.7-16.9); LYMPH % 23.2 % (8-40); MCH 28.2 pg (25.7-33.7); MCHC 32.9 g/dl (32.0-35.9); MEAN CELL VOLUME 85.5 fl (80-96); MEAN PLT VOLUME 9.6 fl (7.5-11.1); MONO % 5.3 % (3.8-10.2); NEUT % 68.9 % (42.8-82.8); PLATELET COUNT 153 10^3/uL (134-434); RBC 3.21 M/mm3 (4.00-5.60); RDW 13.1 % (11.9-15.9); WHITE BLOOD COUNT 6.8 K/mm3 (4.0-10.0)
[2022-12-05 12:26] LABS: CALCIUM 7.4 mg/dL (8.5-10.1)
[2022-12-05 12:27] LABS: ALBUMIN 1.8 g/dl (3.4-5.0); BLOOD UREA NITROGEN 35.2 mg/dL (7-18); MAGNESIUM 2.1 mg/dL (1.8-2.4)
[2022-12-05 12:30] LABS: CREATININE 1.5 mg/dL (0.55-1.3); PHOSPHOROUS 2.7 mg/dL (2.5-4.9)
[2022-12-05 12:31] LABS: BILIRUBIN,TOTAL 0.4 mg/dL (0.2-1); TOT PROT 6.9 g/dl (6.4-8.2)
[2022-12-05] MEDS: POTASSIUM CHLORIDE 20 MEQ in DEXTROSE 5%-WATER - 1,000 ML IV SCH ×2 (14:44→21:41)
[2022-12-05] MEDS: POTASSIUM CHLORIDE 10 MEQ in DEXTROSE 5%-WATER - 1,000 ML IV SCH (17:01)
[2022-12-05] MEDS: FAT EMULSION/OLIVE/SOY/PHOSPHO 250 ML IV SCH (21:43)
[2022-12-05] MEDS: SENNOSIDES 8.6MG TABLET (FP) PO SCH (21:45)
[2022-12-06] MEDS: NYSTATIN 500,000 UNITS/5 ML SUSPENSION PO SCH ×4 (00:30→17:49)
[2022-12-06] MEDS: MAG HYDROX/ALH/SMC/DPHA/LIDO 240 ML MOUTHWASH MM SCH ×4 (01:00→17:49)
[2022-12-06] MEDS: POTASSIUM CHLORIDE 20 MEQ in DEXTROSE 5%-WATER - 1,000 ML IV SCH ×2 (03:00→14:47)
[2022-12-06] MEDS: POLYETHYLENE GLYCOL (HEALTHYLAX) 3350 17 GM PACKET PO SCH ×3 (06:15→22:15)
[2022-12-06] MEDS: HEPARIN NA (PORCINE) 5,000 UNITS/ML 1ML VIAL SQ SCH ×3 (06:15→21:56)
[2022-12-06] MEDS: INSULIN SLIDING SCALE (NOVOLOG) 1 VIAL SQ SCH ×4 (06:18→22:12)
[2022-12-06] MEDS: INSULIN (LEVEMIR) 100 UNITS/ML UNITS SQ SCH ×2 (06:18→22:12)
[2022-12-06 08:46] LABS: BASO % 0.8 % (0-2.0); EOS % 2.7 % (0-4.5); HEMATOCRIT 24.1 % (35.4-49); HEMOGLOBIN 8.3 GM/dL (11.7-16.9); MCH 30.1 pg (25.7-33.7); MCHC 34.4 g/dl (32.0-35.9); MEAN CELL VOLUME 87.4 fl (80-96); MEAN PLT VOLUME 9.9 fl (7.5-11.1); MONO % 6.1 % (3.8-10.2); NEUT % 73.4 % (42.8-82.8); PLATELET COUNT 154 10^3/uL (134-434); RBC 2.76 M/mm3 (4.00-5.60); RDW 12.7 % (11.9-15.9); WHITE BLOOD COUNT 6.4 K/mm3 (4.0-10.0)
[2022-12-06 09:00] LABS: CHLORIDE 126 mmol/L (98-107); SODIUM 151 mmol/L (136-145)
[2022-12-06 09:11] LABS: ALBUMIN 1.7 g/dl (3.4-5.0); BLOOD UREA NITROGEN 30.5 mg/dL (7-18); CO2 20 mmol/L (21-32)
[2022-12-06 09:12] LABS: CALCIUM 7.7 mg/dL (8.5-10.1); GLUCOSE,RANDOM 233 mg/dL (74-106)
[2022-12-06 09:14] LABS: SGPT/ALT 47 U/L (13-61)
[2022-12-06 09:15] LABS: CREATININE 1.5 mg/dL (0.55-1.3); PHOSPHOROUS 2.5 mg/dL (2.5-4.9); SGOT/AST 26 U/L (15-37)
[2022-12-06 09:16] LABS: BILIRUBIN,TOTAL 0.5 mg/dL (0.2-1); TOT PROT 6.5 g/dl (6.4-8.2)
[2022-12-06 09:17] LABS: ALK PHOS 280 U/L (45-117)
[2022-12-06 09:30] LABS: ANION GAP 5 MMOL/L (8-16)
[2022-12-06] MEDS ORDERED: IBUPROFEN 400 MG TABLET (FP) PO ONE (09:35)
[2022-12-06] MEDS: FLUCONAZOLE 100 MG TABLET (UD) PO SCH (10:05)
[2022-12-06] MEDS: CALCIUM 500MG/VIT-D 200 UNITS COMBO TABLET (FP) PO SCH ×2 (10:05→22:15)
[2022-12-06] MEDS: TAMSULOSIN HCL 0.4 MG CAP PO SCH (10:05)
[2022-12-06] MEDS: PANTOPRAZOLE 40 MG TABLET PO SCH (10:05)
[2022-12-06] MEDS: HYDROCHLOROTHIAZIDE 25 MG TABLET (FP) PO SCH (10:05)
[2022-12-06] MEDS: POTASSIUM CHLORIDE ORAL LIQUID 20 MEQ/15 ML PO SCH ×2 (10:21→22:23)
[2022-12-06] MEDS: POTASSIUM CHLORIDE 10 MEQ in AMINO ACIDS 4.25%/D5W 1,000 ML IV SCH (11:40)
[2022-12-06] MEDS ORDERED: LIDOCAINE HCL 2% JELLY 10 ML CARTRIDGE RC ONE (15:54)
[2022-12-06] MEDS ORDERED: BENZOCAINE 20 % GEL TUBE MM PRN (15:57)
[2022-12-06] MEDS ORDERED: LORazepam 2 MG/ML SDV VIAL IVPUSH ONE (16:30)
[2022-12-06] MEDS ORDERED: POTASSIUM CHLORIDE ORAL LIQUID 20 MEQ/15 ML GT SCH (17:08)
[2022-12-06] MEDS ORDERED: POTASSIUM CHLORIDE 20 MEQ in DEXTROSE 5%-WATER - 1,000 ML IV SCH (18:08)
[2022-12-06] MEDS ORDERED: POTASSIUM CHLORIDE 10 MEQ in AMINO ACIDS 4.25%/D5W 1,000 ML IV SCH (18:10)
[2022-12-06] MEDS ORDERED: POTASSIUM CHLORIDE 20 MEQ in AMINO ACIDS 4.25%/D5W 1,000 ML IV SCH ×2 (18:15→20:00)
[2022-12-06] MEDS ORDERED: POTASSIUM CHLORIDE ORAL LIQUID 20 MEQ/15 ML GT STA (18:26)
[2022-12-06] MEDS ORDERED: AMINO ACIDS 4.25%/D5W 1,000 ML IV SCH (19:41)
[2022-12-06] MEDS: DEXTROSE 5%-WATER - 1,000 ML IV SCH (20:10)
[2022-12-06] MEDS: SENNOSIDES 8.6MG TABLET (FP) PO SCH (22:15)
[2022-12-06] MEDS: FAT EMULSION/OLIVE/SOY/PHOSPHO 250 ML IV SCH (22:33)
[2022-12-07] MEDS: NYSTATIN 500,000 UNITS/5 ML SUSPENSION PO SCH ×4 (01:19→17:06)
[2022-12-07] MEDS: MAG HYDROX/ALH/SMC/DPHA/LIDO 240 ML MOUTHWASH MM SCH ×4 (01:19→17:06)
[2022-12-07] MEDS: DEXTROSE 5%-WATER - 1,000 ML IV SCH ×4 (02:32→15:23)
[2022-12-07] MEDS: HEPARIN NA (PORCINE) 5,000 UNITS/ML 1ML VIAL SQ SCH ×3 (06:33→21:32)
[2022-12-07] MEDS: POLYETHYLENE GLYCOL (HEALTHYLAX) 3350 17 GM PACKET PO SCH ×3 (06:33→21:30)
[2022-12-07] MEDS: INSULIN (LEVEMIR) 100 UNITS/ML UNITS SQ SCH (06:39)
[2022-12-07] MEDS: INSULIN SLIDING SCALE (NOVOLOG) 1 VIAL SQ SCH ×4 (06:40→21:31)
[2022-12-07] MEDS ORDERED: INSULIN (LEVEMIR) 100 UNITS/ML UNITS SQ SCH (07:10)
[2022-12-07] MEDS: TAMSULOSIN HCL 0.4 MG CAP PO SCH (09:25)
[2022-12-07] MEDS: CALCIUM 500MG/VIT-D 200 UNITS COMBO TABLET (FP) PO SCH ×2 (09:35→21:30)
[2022-12-07] MEDS: POTASSIUM CHLORIDE ORAL LIQUID 20 MEQ/15 ML PO SCH ×2 (09:36→21:30)
[2022-12-07] MEDS: HYDROCHLOROTHIAZIDE 25 MG TABLET (FP) PO SCH (09:36)
[2022-12-07] MEDS: FLUCONAZOLE 100 MG TABLET (UD) PO SCH (09:36)
[2022-12-07] MEDS: PANTOPRAZOLE 40 MG TABLET PO SCH (09:36)
[2022-12-07 09:42] LABS: BASO % 0.5 % (0-2.0); EOS % 2.8 % (0-4.5); HEMATOCRIT 26.9 % (35.4-49); HEMOGLOBIN 9.3 GM/dL (11.7-16.9); MCH 30.4 pg (25.7-33.7); MCHC 34.5 g/dl (32.0-35.9); MEAN CELL VOLUME 87.9 fl (80-96); MEAN PLT VOLUME 9.5 fl (7.5-11.1); MONO % 6.5 % (3.8-10.2); NEUT % 68.2 % (42.8-82.8); PLATELET COUNT 128 10^3/uL (134-434); RBC 3.05 M/mm3 (4.00-5.60); RDW 13.4 % (11.9-15.9); WHITE BLOOD COUNT 6.9 K/mm3 (4.0-10.0)
[2022-12-07 10:07] LABS: CALCIUM 7.7 mg/dL (8.5-10.1)
[2022-12-07 10:08] LABS: ALBUMIN 1.8 g/dl (3.4-5.0); BLOOD UREA NITROGEN 30.7 mg/dL (7-18)
[2022-12-07 10:11] LABS: CREATININE 1.6 mg/dL (0.55-1.3); PHOSPHOROUS 3.2 mg/dL (2.5-4.9)
[2022-12-07 10:12] LABS: TOT PROT 6.8 g/dl (6.4-8.2)
[2022-12-07 10:18] LABS: BILIRUBIN,TOTAL 0.4 mg/dL (0.2-1)
[2022-12-07] MEDS ORDERED: AMINO ACIDS 4.25%/D5W 1,000 ML IV SCH (11:00)
[2022-12-07] MEDS: IBUPROFEN 400 MG TABLET (FP) PO SCH (13:28)
[2022-12-07] MEDS: FAT EMULSION/OLIVE/SOY/PHOSPHO 250 ML IV SCH (21:29)
[2022-12-07] MEDS: SENNOSIDES 8.6MG TABLET (FP) PO SCH (21:30)
[2022-12-08] MEDS: NYSTATIN 500,000 UNITS/5 ML SUSPENSION PO SCH ×5 (01:00→23:11)
[2022-12-08] MEDS: MAG HYDROX/ALH/SMC/DPHA/LIDO 240 ML MOUTHWASH MM SCH ×4 (01:00→17:21)
[2022-12-08] MEDS: DEXTROSE 5%-WATER - 1,000 ML IV SCH ×3 (05:29→17:52)
[2022-12-08] MEDS: POLYETHYLENE GLYCOL (HEALTHYLAX) 3350 17 GM PACKET PO SCH ×2 (05:30→14:11)
[2022-12-08] MEDS: HEPARIN NA (PORCINE) 5,000 UNITS/ML 1ML VIAL SQ SCH ×3 (06:09→23:12)
[2022-12-08] MEDS: INSULIN (LEVEMIR) 100 UNITS/ML UNITS SQ SCH (06:10)
[2022-12-08] MEDS: INSULIN SLIDING SCALE (NOVOLOG) 1 VIAL SQ SCH ×3 (06:11→17:28)
[2022-12-08] MEDS: TAMSULOSIN HCL 0.4 MG CAP PO SCH (08:36)
[2022-12-08 08:37] LABS: BASO % 0.7 % (0-2.0); EOS % 2.8 % (0-4.5); HEMATOCRIT 27.8 % (35.4-49); HEMOGLOBIN 9.9 GM/dL (11.7-16.9); LYMPH % 20.5 % (8-40); MCH 30.4 pg (25.7-33.7); MCHC 35.5 g/dl (32.0-35.9); MEAN CELL VOLUME 85.6 fl (80-96); MEAN PLT VOLUME 9.8 fl (7.5-11.1); MONO % 5.8 % (3.8-10.2); NEUT % 70.2 % (42.8-82.8); PLATELET COUNT 152 10^3/uL (134-434); RBC 3.25 M/mm3 (4.00-5.60); RDW 13.9 % (11.9-15.9); WHITE BLOOD COUNT 7.4 K/mm3 (4.0-10.0)
[2022-12-08 09:08] LABS: BLOOD UREA NITROGEN 29.7 mg/dL (7-18); CALCIUM 8.1 mg/dL (8.5-10.1)
[2022-12-08 09:09] LABS: MAGNESIUM 2.1 mg/dL (1.8-2.4)
[2022-12-08 09:11] LABS: CREATININE 1.5 mg/dL (0.55-1.3); PHOSPHOROUS 3.6 mg/dL (2.5-4.9)
[2022-12-08 09:13] LABS: BILIRUBIN,TOTAL 0.5 mg/dL (0.2-1); TOT PROT 7.5 g/dl (6.4-8.2)
[2022-12-08] MEDS ORDERED: DEXTROSE 5%-WATER - 1,000 ML IV SCH (09:26)
[2022-12-08] MEDS: FLUCONAZOLE 100 MG TABLET (UD) PO SCH (11:43)
[2022-12-08] MEDS: PANTOPRAZOLE 40 MG TABLET PO SCH (11:44)
[2022-12-08] MEDS: IBUPROFEN 400 MG TABLET (FP) PO SCH (11:44)
[2022-12-08] MEDS: CALCIUM 500MG/VIT-D 200 UNITS COMBO TABLET (FP) PO SCH ×2 (11:44→23:12)
[2022-12-08] MEDS: POTASSIUM CHLORIDE ORAL LIQUID 20 MEQ/15 ML PO SCH ×2 (11:45→23:11)
[2022-12-08] MEDS: AMINO ACIDS 4.25%/D5W 1,000 ML IV SCH ×3 (11:46→23:59)
[2022-12-08] MEDS ORDERED: INSULIN (NOVOLOG) ASPART 100 UNITS/ML 10ML VIAL ONE (12:10)
[2022-12-08] MEDS: HYDROCHLOROTHIAZIDE 25 MG TABLET (FP) PO SCH (12:27)
[2022-12-08] MEDS ORDERED: DEXTROSE 50%-WATER 25 GM/50 ML DISP.SYRIN IVPUSH PRN (12:54)
[2022-12-08] MEDS ORDERED: DAPTOMYCIN 500 MG in SODIUM CHLORIDE 50 ML IVPB ONE (14:15)
[2022-12-08] MEDS ORDERED: SODIUM CHLORIDE 0.45% 1,000 ML IV SCH (15:30)
[2022-12-08] MEDS: CEFEPIME 1 GM in DEXTROSE 5%-WATER 100 ML IVPB SCH ×2 (17:22→23:12)
[2022-12-09] MEDS: INSULIN SLIDING SCALE (NOVOLOG) 1 VIAL SQ SCH ×6 (00:01→23:07)
[2022-12-09] MEDS: INSULIN (LEVEMIR) 100 UNITS/ML UNITS SQ SCH ×4 (00:01→23:07)
[2022-12-09] MEDS: SENNOSIDES 8.6MG TABLET (FP) PO SCH ×2 (00:08→22:55)
[2022-12-09] MEDS: FAT EMULSION/OLIVE/SOY/PHOSPHO 250 ML IV SCH ×2 (00:56→22:55)
[2022-12-09] MEDS: MAG HYDROX/ALH/SMC/DPHA/LIDO 240 ML MOUTHWASH MM SCH ×4 (01:11→17:58)
[2022-12-09] MEDS: POLYETHYLENE GLYCOL (HEALTHYLAX) 3350 17 GM PACKET PO SCH ×4 (06:19→22:52)
[2022-12-09] MEDS: NYSTATIN 500,000 UNITS/5 ML SUSPENSION PO SCH ×3 (06:33→17:58)
[2022-12-09] MEDS: HEPARIN NA (PORCINE) 5,000 UNITS/ML 1ML VIAL SQ SCH ×3 (06:33→22:57)
[2022-12-09] MEDS: AMINO ACIDS 4.25%/D5W 1,000 ML IV SCH ×3 (06:48→17:58)
[2022-12-09] MEDS ORDERED: BENZOCAINE/MENTH/CETYLPYRD CL 1 EACH LOZENGE MM PRN (06:55)
[2022-12-09] MEDS ORDERED: BENZOCAINE 20 % GEL TUBE MM PRN (06:55)
[2022-12-09] MEDS ORDERED: LIDOCAINE VISCOUS 2% ORAL/TOP 15 ML UNIT-DOSE CUP MM PRN (06:55)
[2022-12-09] MEDS ORDERED: DEXTROSE 5%-WATER - 1,000 ML IV SCH (06:55)
[2022-12-09 07:06] LABS: BASO % 0.4 % (0-2.0); EOS % 2.3 % (0-4.5); HEMATOCRIT 27.4 % (35.4-49); HEMOGLOBIN 9.7 GM/dL (11.7-16.9); LYMPH % 24.1 % (8-40); MCH 30.5 pg (25.7-33.7); MCHC 35.3 g/dl (32.0-35.9); MEAN CELL VOLUME 86.6 fl (80-96); MEAN PLT VOLUME 9.6 fl (7.5-11.1); MONO % 7.3 % (3.8-10.2); NEUT % 65.9 % (42.8-82.8); PLATELET COUNT 136 10^3/uL (134-434); RBC 3.17 M/mm3 (4.00-5.60); RDW 13.8 % (11.9-15.9); WHITE BLOOD COUNT 7.3 K/mm3 (4.0-10.0)
[2022-12-09 07:24] LABS: CALCIUM 7.8 mg/dL (8.5-10.1)
[2022-12-09 07:25] LABS: ALBUMIN 1.8 g/dl (3.4-5.0); MAGNESIUM 1.9 mg/dL (1.8-2.4)
[2022-12-09 07:28] LABS: CREATININE 1.6 mg/dL (0.55-1.3); PHOSPHOROUS 3.8 mg/dL (2.5-4.9)
[2022-12-09 07:29] LABS: BILIRUBIN,TOTAL 0.4 mg/dL (0.2-1); TOT PROT 7.1 g/dl (6.4-8.2)
[2022-12-09 07:55] LABS: EPI CELLS 32 /uL (0-25.1); HYALINE CASTS 4 /uL (0-3.1); PH,URINE 5.5 (5.0-8.0); URINE APPEARANCE CLOUDY; URINE BACTERIA 50 /uL (0-1359); URINE BILIRUBIN NEGATIVE (NEGATIVE); URINE COLOR YELLOW; URINE GLUCOSE (UA) NEGATIVE (NEGATIVE); URINE KETONE NEGATIVE (NEGATIVE); URINE LEUK ESTERASE 3+ (NEGATIVE); URINE NITRITE NEGATIVE (NEGATIVE); URINE PROTEIN 3+ (NEGATIVE); URINE RBC 655 /uL (0-23.9); URINE UROBILINOGEN 0.2 mg/dL (0.2-1.0); URINE WBC 1126 /uL (0-25.8)
[2022-12-09] MEDS: TAMSULOSIN HCL 0.4 MG CAP PO SCH (08:40)
[2022-12-09] MEDS: POTASSIUM CHLORIDE ORAL LIQUID 20 MEQ/15 ML PO SCH ×2 (09:23→22:59)
[2022-12-09] MEDS: IBUPROFEN 400 MG TABLET (FP) PO SCH (09:23)
[2022-12-09] MEDS: PANTOPRAZOLE 40 MG TABLET PO SCH (09:24)
[2022-12-09] MEDS: FLUCONAZOLE 100 MG TABLET (UD) PO SCH (09:24)
[2022-12-09] MEDS: CALCIUM 500MG/VIT-D 200 UNITS COMBO TABLET (FP) PO SCH ×2 (09:24→22:59)
[2022-12-09] MEDS: HYDROCHLOROTHIAZIDE 25 MG TABLET (FP) PO SCH (09:24)
[2022-12-09] MEDS ORDERED: CEFEPIME 1 GM in DEXTROSE 5%-WATER - 100 ML IVPB SCH (10:00)
[2022-12-09] MEDS: CEFEPIME 1 GM in DEXTROSE 5%-WATER 100 ML IVPB SCH ×2 (10:35→22:57)
[2022-12-09] MEDS ORDERED: DAPTOMYCIN 500 MG in SODIUM CHLORIDE 50 ML IVPB SCH (17:00)
[2022-12-09] MEDS: MIRTAZAPINE 15 MG TABLET (FP) PO SCH (22:59)
[2022-12-10] MEDS: NYSTATIN 500,000 UNITS/5 ML SUSPENSION PO SCH ×4 (00:21→17:37)
[2022-12-10] MEDS: MAG HYDROX/ALH/SMC/DPHA/LIDO 240 ML MOUTHWASH MM SCH ×4 (00:21→17:37)
[2022-12-10] MEDS: AMINO ACIDS 4.25%/D5W 1,000 ML IV SCH (06:42)
[2022-12-10] MEDS: POLYETHYLENE GLYCOL (HEALTHYLAX) 3350 17 GM PACKET PO SCH ×3 (06:42→22:26)
[2022-12-10] MEDS: HEPARIN NA (PORCINE) 5,000 UNITS/ML 1ML VIAL SQ SCH ×3 (06:43→22:26)
[2022-12-10] MEDS: INSULIN (LEVEMIR) 100 UNITS/ML UNITS SQ SCH ×2 (06:45→22:35)
[2022-12-10] MEDS: INSULIN SLIDING SCALE (NOVOLOG) 1 VIAL SQ SCH ×4 (06:46→22:35)
[2022-12-10 08:09] LABS: CALCIUM 8.3 mg/dL (8.5-10.1)
[2022-12-10 08:10] LABS: ALBUMIN 1.9 g/dl (3.4-5.0); BLOOD UREA NITROGEN 49.9 mg/dL (7-18); MAGNESIUM 2.1 mg/dL (1.8-2.4)
[2022-12-10 08:11] LABS: HEMATOCRIT 29.9 % (35.4-49); HEMOGLOBIN 10.5 GM/dL (11.7-16.9); MCH 30.4 pg (25.7-33.7); MEAN CELL VOLUME 86.8 fl (80-96); MEAN PLT VOLUME 10.4 fl (7.5-11.1); PLATELET COUNT 182 10^3/uL (134-434); RBC 3.45 M/mm3 (4.00-5.60); RDW 15.8 % (11.9-15.9)
[2022-12-10 08:13] LABS: CREATININE 1.8 mg/dL (0.55-1.3); PHOSPHOROUS 3.9 mg/dL (2.5-4.9)
[2022-12-10 08:14] LABS: BILIRUBIN,TOTAL 0.4 mg/dL (0.2-1); TOT PROT 7.6 g/dl (6.4-8.2)
[2022-12-10] MEDS: TAMSULOSIN HCL 0.4 MG CAP PO SCH (08:30)
[2022-12-10 09:00] LABS: ANISOCYTOSIS 0; HELMET CELLS 0; HOWELL-JOLLY BODIES 0; MACROCYTOSIS 0; OVALOCYTE 0; ROULEAU 0; SICKELED CELLS 0; TARGET CELLS 0; TEAR DROP CELLS 0; TOXIC GRANULATION 0
[2022-12-10] MEDS: CEFEPIME 1 GM in DEXTROSE 5%-WATER 100 ML IVPB SCH (09:30)
[2022-12-10] MEDS: IBUPROFEN 400 MG TABLET (FP) PO SCH (09:30)
[2022-12-10] MEDS: FLUCONAZOLE 100 MG TABLET (UD) PO SCH (09:30)
[2022-12-10] MEDS: HYDROCHLOROTHIAZIDE 25 MG TABLET (FP) PO SCH (09:30)
[2022-12-10] MEDS: PANTOPRAZOLE 40 MG TABLET PO SCH (09:30)
[2022-12-10] MEDS: CALCIUM 500MG/VIT-D 200 UNITS COMBO TABLET (FP) PO SCH ×2 (09:30→22:27)
[2022-12-10] MEDS: POTASSIUM CHLORIDE ORAL LIQUID 20 MEQ/15 ML PO SCH ×2 (10:49→22:27)
[2022-12-10] MEDS ORDERED: AMINO ACIDS 4.25%/D5W 1,000 ML IV SCH (13:42)
[2022-12-10] MEDS: SENNOSIDES 8.6MG TABLET (FP) PO SCH (22:27)
[2022-12-10] MEDS: MIRTAZAPINE 15 MG TABLET (FP) PO SCH (22:27)
[2022-12-10] MEDS: FAT EMULSION/OLIVE/SOY/PHOSPHO 250 ML IV SCH (22:41)
[2022-12-11] MEDS: NYSTATIN 500,000 UNITS/5 ML SUSPENSION PO SCH ×3 (02:05→13:05)
[2022-12-11] MEDS: MAG HYDROX/ALH/SMC/DPHA/LIDO 240 ML MOUTHWASH MM SCH ×4 (02:05→18:36)
[2022-12-11] MEDS: HEPARIN NA (PORCINE) 5,000 UNITS/ML 1ML VIAL SQ SCH ×3 (06:09→21:53)
[2022-12-11] MEDS: POLYETHYLENE GLYCOL (HEALTHYLAX) 3350 17 GM PACKET PO SCH ×3 (06:10→21:53)
[2022-12-11] MEDS: INSULIN SLIDING SCALE (NOVOLOG) 1 VIAL SQ SCH ×4 (06:23→21:58)
[2022-12-11] MEDS: INSULIN (LEVEMIR) 100 UNITS/ML UNITS SQ SCH ×2 (06:23→21:58)
[2022-12-11] MEDS: TAMSULOSIN HCL 0.4 MG CAP PO SCH (09:11)
[2022-12-11] MEDS: HYDROCHLOROTHIAZIDE 25 MG TABLET (FP) PO SCH (09:11)
[2022-12-11] MEDS: POTASSIUM CHLORIDE ORAL LIQUID 20 MEQ/15 ML PO SCH ×2 (09:11→21:58)
[2022-12-11] MEDS: PANTOPRAZOLE 40 MG TABLET PO SCH (09:11)
[2022-12-11] MEDS: CALCIUM 500MG/VIT-D 200 UNITS COMBO TABLET (FP) PO SCH (09:11)
[2022-12-11 20:30] LABS: ALBUMIN 2.2 g/dl (3.4-5.0); MAGNESIUM 2.4 mg/dL (1.8-2.4)
[2022-12-11 20:33] LABS: CREATININE 3.1 mg/dL (0.55-1.3); PHOSPHOROUS 5.5 mg/dL (2.5-4.9)
[2022-12-11 20:34] LABS: TOT PROT 8.8 g/dl (6.4-8.2)
[2022-12-11 20:35] LABS: BILIRUBIN,TOTAL 0.3 mg/dL (0.2-1)
[2022-12-11 20:53] LABS: BLOOD UREA NITROGEN 82.2 mg/dL (7-18)
[2022-12-11] MEDS: MIRTAZAPINE 15 MG TABLET (FP) PO SCH (21:59)
[2022-12-11] MEDS: SENNOSIDES 8.6MG TABLET (FP) PO SCH (21:59)
[2022-12-12] MEDS: MAG HYDROX/ALH/SMC/DPHA/LIDO 240 ML MOUTHWASH MM SCH ×4 (00:30→17:38)
[2022-12-12] MEDS: POLYETHYLENE GLYCOL (HEALTHYLAX) 3350 17 GM PACKET PO SCH ×2 (06:40→15:17)
[2022-12-12] MEDS: HEPARIN NA (PORCINE) 5,000 UNITS/ML 1ML VIAL SQ SCH ×2 (06:40→15:20)
[2022-12-12] MEDS: INSULIN (LEVEMIR) 100 UNITS/ML UNITS SQ SCH (06:42)
[2022-12-12] MEDS: INSULIN SLIDING SCALE (NOVOLOG) 1 VIAL SQ SCH ×3 (06:43→17:37)
[2022-12-12 08:13] LABS: HEMATOCRIT 32.7 % (35.4-49); HEMOGLOBIN 11.3 GM/dL (11.7-16.9); MCH 30.2 pg (25.7-33.7); MCHC 34.6 g/dl (32.0-35.9); MEAN CELL VOLUME 87.3 fl (80-96); MEAN PLT VOLUME 10.1 fl (7.5-11.1); PLATELET COUNT 266 10^3/uL (134-434); RBC 3.75 M/mm3 (4.00-5.60); RDW 18.4 % (11.9-15.9); WHITE BLOOD COUNT 10.6 K/mm3 (4.0-10.0)
[2022-12-12 08:28] LABS: CHLORIDE 116 mmol/L (98-107); SODIUM 136 mmol/L (136-145)
[2022-12-12 08:38] LABS: CALCIUM 9.1 mg/dL (8.5-10.1); CO2 14 mmol/L (21-32)
[2022-12-12 08:39] LABS: GLUCOSE,RANDOM 202 mg/dL (74-106); MAGNESIUM 2.6 mg/dL (1.8-2.4)
[2022-12-12 08:42] LABS: SGOT/AST 9 U/L (15-37)
[2022-12-12 08:43] LABS: ALBUMIN 2.2 g/dl (3.4-5.0); TOT PROT 8.4 g/dl (6.4-8.2)
[2022-12-12 08:44] LABS: ALK PHOS 264 U/L (45-117)
[2022-12-12 08:46] LABS: CREATININE 3.1 mg/dL (0.55-1.3)
[2022-12-12 08:48] LABS: BILIRUBIN,TOTAL 0.4 mg/dL (0.2-1)
[2022-12-12 08:55] LABS: ANION GAP 7 MMOL/L (8-16); BLOOD UREA NITROGEN 88.3 mg/dL (7-18); SGPT/ALT 27 U/L (13-61)
[2022-12-12 08:58] LABS: ANISOCYTOSIS 0; HELMET CELLS 0; HOWELL-JOLLY BODIES 0; MACROCYTOSIS 0; OVALOCYTE 0; ROULEAU 0; SICKELED CELLS 0; TARGET CELLS 0; TEAR DROP CELLS 0; TOXIC GRANULATION 0
[2022-12-12] MEDS ORDERED: SODIUM CHLORIDE 0.9% 500 ML INFUS.BAG IV ONE (09:06)
[2022-12-12] MEDS: TAMSULOSIN HCL 0.4 MG CAP PO SCH (09:59)
[2022-12-12] MEDS: PANTOPRAZOLE 40 MG TABLET PO SCH (09:59)
[2022-12-12] MEDS ORDERED: SODIUM CHLORIDE 500 ML IV SCH (10:30)
[2022-12-12] MEDS: SODIUM ZIRCONIUM CYCLOSILICATE (LOKELMA) 5 GM PACKET PO SCH (12:04)
[2022-12-12 15:09] LABS: ARTERIAL BLD GAS O2 SATURATION 98.1 % (95-98); ARTERIAL BLOOD GAS BASE EXCESS -11.3 mmol/L (-2-2); ARTERIAL BLOOD GAS PO2 108.7 mmHg (80-100); ARTERIAL BLOOD GAS pH 7.392 (7.350-7.450)
[2022-12-12 15:10] LABS: ALLENS TEST POSITIVE
[2022-12-12] MEDS ORDERED: SODIUM BICARBONATE 8.4% 50 MEQ/50 ML DISP.SYRIN IVPUSH ONE (16:44)
[2022-12-12] MEDS ORDERED: SODIUM CHLORIDE 0.45% 1,000 ML IV SCH (16:45)
[2022-12-13] MEDS: POLYETHYLENE GLYCOL (HEALTHYLAX) 3350 17 GM PACKET PO SCH ×3 (00:25→14:55)
[2022-12-13] MEDS: INSULIN (LEVEMIR) 100 UNITS/ML UNITS SQ SCH ×3 (00:25→22:03)
[2022-12-13] MEDS: SODIUM ZIRCONIUM CYCLOSILICATE (LOKELMA) 5 GM PACKET PO SCH ×2 (00:25→09:26)
[2022-12-13] MEDS: SENNOSIDES 8.6MG TABLET (FP) PO SCH (00:26)
[2022-12-13] MEDS: INSULIN SLIDING SCALE (NOVOLOG) 1 VIAL SQ SCH ×5 (00:26→22:04)
[2022-12-13] MEDS: SODIUM BICARBONATE 650 MG TABLET PO SCH ×2 (00:26→09:26)
[2022-12-13] MEDS: MIRTAZAPINE 15 MG TABLET (FP) PO SCH (00:26)
[2022-12-13] MEDS: MAG HYDROX/ALH/SMC/DPHA/LIDO 240 ML MOUTHWASH MM SCH ×4 (00:31→18:57)
[2022-12-13 07:54] LABS: HEMATOCRIT 30.1 % (35.4-49); HEMOGLOBIN 10.6 GM/dL (11.7-16.9); MCH 30.9 pg (25.7-33.7); MCHC 35.4 g/dl (32.0-35.9); MEAN CELL VOLUME 87.4 fl (80-96); MEAN PLT VOLUME 9.7 fl (7.5-11.1); PLATELET COUNT 271 10^3/uL (134-434); RBC 3.44 M/mm3 (4.00-5.60); WHITE BLOOD COUNT 10.1 K/mm3 (4.0-10.0)
[2022-12-13 07:56] LABS: INR 1.14 (0.83-1.09); PROTHROMBIN TIME (PATIENT) 13.2 SEC (9.7-13.0)
[2022-12-13 07:58] LABS: ACTIVATED PTT 24.4 SECONDS (25.2-36.5)
[2022-12-13 08:10] LABS: ALBUMIN 2.1 g/dl (3.4-5.0); BLOOD UREA NITROGEN 88.4 mg/dL (7-18)
[2022-12-13 08:12] LABS: CALCIUM 8.5 mg/dL (8.5-10.1); MAGNESIUM 2.5 mg/dL (1.8-2.4)
[2022-12-13 08:16] LABS: CREATININE 2.5 mg/dL (0.55-1.3); LACTIC ACID 2.1 mmol/L (0.4-2.0); PHOSPHOROUS 6.4 mg/dL (2.5-4.9)
[2022-12-13 08:17] LABS: BILIRUBIN,TOTAL 0.3 mg/dL (0.2-1); TOT PROT 7.8 g/dl (6.4-8.2)
[2022-12-13 09:01] LABS: ANISOCYTOSIS 0; HELMET CELLS 0; HOWELL-JOLLY BODIES 0; MACROCYTOSIS 0; OVALOCYTE 0; ROULEAU 0; SICKELED CELLS 0; TARGET CELLS 0; TEAR DROP CELLS 0; TOXIC GRANULATION 0
[2022-12-13] MEDS: TAMSULOSIN HCL 0.4 MG CAP PO SCH (09:26)
[2022-12-13] MEDS: PANTOPRAZOLE 40 MG TABLET PO SCH (09:26)
[2022-12-13] MEDS ORDERED: CEFAZOLIN SODIUM 2 GM VIAL IVPB ONE (11:30)
[2022-12-13] MEDS: DEXTROSE 5%-0.45% SALINE 1,000 ML IV SCH ×2 (11:51→22:00)
[2022-12-13] MEDS ORDERED: CEFAZOLIN 1 GM in DEXTROSE 5%-WATER - 50 ML IVPB ONE (12:00)
[2022-12-13] MEDS ORDERED: MIDAZOLAM HCL 2 MG/2 ML SINGLE DOSE VIAL ONE (13:00)
[2022-12-13] MEDS ORDERED: MIRTAZAPINE 15 MG TABLET (FP) GT SCH (22:00)
[2022-12-13] MEDS: POLYETHYLENE GLYCOL (HEALTHYLAX) 3350 17 GM PACKET GT SCH (22:02)
[2022-12-13] MEDS: SODIUM ZIRCONIUM CYCLOSILICATE (LOKELMA) 5 GM PACKET GT SCH (22:02)
[2022-12-13] MEDS: SENNOSIDES 8.8 MG/5 ML SYRUP GT SCH (22:04)
[2022-12-13] MEDS: SODIUM BICARBONATE 650 MG TABLET GT SCH (22:04)
[2022-12-14] MEDS: MAG HYDROX/ALH/SMC/DPHA/LIDO 240 ML MOUTHWASH MM SCH ×3 (01:19→11:56)
[2022-12-14] MEDS: POLYETHYLENE GLYCOL (HEALTHYLAX) 3350 17 GM PACKET GT SCH ×3 (07:13→22:18)
[2022-12-14] MEDS: INSULIN (LEVEMIR) 100 UNITS/ML UNITS SQ SCH ×2 (07:14→22:46)
[2022-12-14] MEDS: INSULIN SLIDING SCALE (NOVOLOG) 1 VIAL SQ SCH ×4 (07:14→22:46)
[2022-12-14] MEDS: SODIUM ZIRCONIUM CYCLOSILICATE (LOKELMA) 5 GM PACKET GT SCH (09:31)
[2022-12-14] MEDS: SODIUM BICARBONATE 650 MG TABLET GT SCH (09:32)
[2022-12-14] MEDS: PANTOPRAZOLE 40 MG TABLET PO SCH (09:32)
[2022-12-14] MEDS: TAMSULOSIN HCL 0.4 MG CAP PO SCH (09:33)
[2022-12-14 09:56] LABS: BASO % 0.3 % (0-2.0); EOS % 1.8 % (0-4.5); HEMATOCRIT 26.8 % (35.4-49); HEMOGLOBIN 9.5 GM/dL (11.7-16.9); LYMPH % 17.5 % (8-40); MCH 30.9 pg (25.7-33.7); MCHC 35.3 g/dl (32.0-35.9); MEAN CELL VOLUME 87.4 fl (80-96); MEAN PLT VOLUME 9.1 fl (7.5-11.1); MONO % 10.1 % (3.8-10.2); NEUT % 70.3 % (42.8-82.8); PLATELET COUNT 200 10^3/uL (134-434); RBC 3.07 M/mm3 (4.00-5.60); RDW 18.3 % (11.9-15.9); WHITE BLOOD COUNT 7.8 K/mm3 (4.0-10.0)
[2022-12-14] MEDS: DEXTROSE 5%-0.45% SALINE 1,000 ML IV SCH (10:00)
[2022-12-14 10:23] LABS: ALBUMIN 1.8 g/dl (3.4-5.0); BLOOD UREA NITROGEN 71.4 mg/dL (7-18); CALCIUM 7.7 mg/dL (8.5-10.1); MAGNESIUM 2.5 mg/dL (1.8-2.4)
[2022-12-14 10:24] LABS: PHOSPHOROUS 5.2 mg/dL (2.5-4.9)
[2022-12-14 10:27] LABS: BILIRUBIN,TOTAL 0.3 mg/dL (0.2-1); CREATININE 2.1 mg/dL (0.55-1.3); TOT PROT 7.1 g/dl (6.4-8.2)
[2022-12-14] MEDS: SENNOSIDES 8.8 MG/5 ML SYRUP GT SCH (22:18)
[2022-12-15] MEDS: INSULIN (LEVEMIR) 100 UNITS/ML UNITS SQ SCH ×2 (06:15→22:17)
[2022-12-15] MEDS: POLYETHYLENE GLYCOL (HEALTHYLAX) 3350 17 GM PACKET GT SCH ×3 (06:15→22:12)
[2022-12-15] MEDS: INSULIN SLIDING SCALE (NOVOLOG) 1 VIAL SQ SCH ×4 (06:16→22:17)
[2022-12-15 07:43] LABS: BASO % 0.4 % (0-2.0); EOS % 1.9 % (0-4.5); HEMATOCRIT 29.2 % (35.4-49); HEMOGLOBIN 10.1 GM/dL (11.7-16.9); LYMPH % 21.4 % (8-40); MCH 30.3 pg (25.7-33.7); MCHC 34.7 g/dl (32.0-35.9); MEAN CELL VOLUME 87.3 fl (80-96); MONO % 9.1 % (3.8-10.2); NEUT % 67.2 % (42.8-82.8); PLATELET COUNT 218 10^3/uL (134-434); RBC 3.34 M/mm3 (4.00-5.60); WHITE BLOOD COUNT 8.3 K/mm3 (4.0-10.0)
[2022-12-15 08:02] LABS: BLOOD UREA NITROGEN 55.4 mg/dL (7-18); CALCIUM 8.1 mg/dL (8.5-10.1); MAGNESIUM 2.5 mg/dL (1.8-2.4)
[2022-12-15 08:05] LABS: CREATININE 1.8 mg/dL (0.55-1.3); PHOSPHOROUS 4.3 mg/dL (2.5-4.9)
[2022-12-15 08:06] LABS: BILIRUBIN,TOTAL 0.6 mg/dL (0.2-1); TOT PROT 7.4 g/dl (6.4-8.2)
[2022-12-15] MEDS: TAMSULOSIN HCL 0.4 MG CAP PO SCH (11:24)
[2022-12-15] MEDS: PANTOPRAZOLE 40 MG TABLET PO SCH (11:24)
[2022-12-15] MEDS: PANTOPRAZOLE SOD 40 MG SUSPENSION PACKET PO SCH (12:10)
[2022-12-15] MEDS: SENNOSIDES 8.8 MG/5 ML SYRUP GT SCH (22:13)
[2022-12-16] MEDS: INSULIN SLIDING SCALE (NOVOLOG) 1 VIAL SQ SCH ×3 (06:31→17:12)
[2022-12-16] MEDS: INSULIN (LEVEMIR) 100 UNITS/ML UNITS SQ SCH (06:32)
[2022-12-16] MEDS: POLYETHYLENE GLYCOL (HEALTHYLAX) 3350 17 GM PACKET GT SCH ×2 (06:34→16:04)
[2022-12-16] MEDS: TAMSULOSIN HCL 0.4 MG CAP PO SCH (08:44)
[2022-12-16 08:48] LABS: BASO % 0.5 % (0-2.0); EOS % 1.8 % (0-4.5); HEMOGLOBIN 10.1 GM/dL (11.7-16.9); MCH 30.5 pg (25.7-33.7); MCHC 34.8 g/dl (32.0-35.9); MEAN CELL VOLUME 87.6 fl (80-96); MEAN PLT VOLUME 8.8 fl (7.5-11.1); NEUT % 66.7 % (42.8-82.8); PLATELET COUNT 241 10^3/uL (134-434); RBC 3.31 M/mm3 (4.00-5.60); WHITE BLOOD COUNT 7.8 K/mm3 (4.0-10.0)
[2022-12-16 09:24] LABS: ALBUMIN 1.9 g/dl (3.4-5.0); BLOOD UREA NITROGEN 51.1 mg/dL (7-18); MAGNESIUM 2.5 mg/dL (1.8-2.4)
[2022-12-16 09:26] LABS: CREATININE 1.6 mg/dL (0.55-1.3); PHOSPHOROUS 3.8 mg/dL (2.5-4.9)
[2022-12-16 09:27] LABS: TOT PROT 7.2 g/dl (6.4-8.2)
[2022-12-16 09:30] LABS: BILIRUBIN,TOTAL 0.4 mg/dL (0.2-1)
[2022-12-16] MEDS: PANTOPRAZOLE SOD 40 MG SUSPENSION PACKET PO SCH (11:16)
[2022-12-16] MEDS: HYDROCHLOROTHIAZIDE 25 MG TABLET (FP) PO SCH ×2 (13:05→13:17)
[2022-12-16] MEDS: HEPARIN NA (PORCINE) 5,000 UNITS/ML 1ML VIAL SQ SCH (16:03)
[2022-12-16 20:32] VITALS: RESP 20
[2022-12-16 20:50] VITALS: BP 129/78; PULSE 106; TEMP 98.4
== END 2022-12-16 20:30 | DRG 853 ==
LOC: JER 19:02 → JERBED 20:38 → JICU 11-17 00:13 → J5S 11-20 13:29 → J6S 12-03 18:43 → J4W 12-08 22:05
PROVIDERS: ADMIT Internal Medicine Pulmonary Disease
PROC: 0T768DZ Dilation of Right Ureter with Intraluminal Device, Via Natural or Artificial Opening Endoscopic (ICD-10-PCS; 2022-11-17)
PROC: BT1DYZZ Fluoroscopy of Right Kidney, Ureter and Bladder using Other Contrast (ICD-10-PCS; 2022-11-17)
PROC: 05HN33Z Insertion of Infusion Device into Left Internal Jugular Vein, Percutaneous Approach (ICD-10-PCS; principal; 2022-11-18)
PROC: B544ZZA Ultrasonography of Left Jugular Veins, Guidance (ICD-10-PCS; 2022-11-18)
PROC: 05HF33Z Insertion of Infusion Device into Left Cephalic Vein, Percutaneous Approach (ICD-10-PCS; 2022-11-25)
PROC: B54NZZA Ultrasonography of Left Upper Extremity Veins, Guidance (ICD-10-PCS; 2022-11-25)
PROC: 0DH63UZ Insertion of Feeding Device into Stomach, Percutaneous Approach (ICD-10-PCS; 2022-12-13)
DX: A41.89 Other specified sepsis (principal); E11.10 Type 2 diabetes mellitus with ketoacidosis without coma; G93.41 Metabolic encephalopathy; R65.21 Severe sepsis with septic shock; N13.6 Pyonephrosis; E87.20 Acidosis, unspecified; J81.1 Chronic pulmonary edema; N25.1 Nephrogenic diabetes insipidus; E87.0 Hyperosmolality and hypernatremia; B49 Unspecified mycosis; N39.0 Urinary tract infection, site not specified; D69.6 Thrombocytopenia, unspecified; E86.0 Dehydration; N40.0 Benign prostatic hyperplasia without lower urinary tract symptoms; R09.02 Hypoxemia; E11.65 Type 2 diabetes mellitus with hyperglycemia; E87.6 Hypokalemia; I10 Essential (primary) hypertension; R13.10 Dysphagia, unspecified; E87.5 Hyperkalemia; I95.9 Hypotension, unspecified; D72.829 Elevated white blood cell count, unspecified; R41.82 Altered mental status, unspecified; R00.0 Tachycardia, unspecified; R79.89 Other specified abnormal findings of blood chemistry; G51.0 Bell's palsy; N48.89 Other specified disorders of penis; J39.2 Other diseases of pharynx; K59.00 Constipation, unspecified; K21.9 Gastro-esophageal reflux disease without esophagitis; K76.0 Fatty (change of) liver, not elsewhere classified; K29.60 Other gastritis without bleeding; Z91.199 Patient's noncompliance with other medical treatment and regimen due to unspecified reason
CPT/HCPCS: 0241U-QW; 36415; 36600; 70450-TC; 70551-TC; 71045-TC-FY; 71046-TC-FY; 72125-TC; 72170-TC-FY; 74018-TC-FY; 74176-TC; 74220-TC-FY; 76000-TC-FY; 76700-TC; 76775-TC; 77074-TC-FY; 80048; 80053; 80061; 80307; 81003; 82010; 82140; 82272; 82436; 82533; 82550; 82553; 82570; 82607; 82728; 82746; 82803; 82962; 82977; 83036; 83516; 83520; 83540; 83550; 83605; 83735; 83880; 83930; 83935; 84100; 84133; 84155; 84165; 84295; 84300; 84439; 84443; 84484; 85025; 85027; 85362; 85384; 85610; 85730; 86038; 86160; 86256; 86704; 86708; 86803; 87040; 87077; 87086; 87106; 87186; 87340; 87389; 87517; 93005; 93010; 93306-TC; 93971; 94660; 97116-GP; 97161-GP; 99285-25; C1758; C2617; C9803-CS; J0637; J0878; J1644; J3490; U0003; U0005

== ENCOUNTER → 2023-02-25 | Day surgery (SDC) | payer OTHER ==
[2023-02-21 09:43] VITALS: BMI 21.9
[2023-02-25 10:39] VITALS: BP 127/73; PULSE 89; RESP 17; TEMP 98.5
== END | disposition home or self-care (01) ==
LOC: JASU-ENDO 04:21
PROVIDERS: ATTEND Student in an Organized Health Care Education/Training Program
PROC: 0DJD8ZZ Inspection of Lower Intestinal Tract, Via Natural or Artificial Opening Endoscopic (ICD-10-PCS; principal; 2023-02-25)
DX: Z53.09 Procedure and treatment not carried out because of other contraindication (principal)
CPT/HCPCS: 82962

== ENCOUNTER 2023-03-04 05:16 | Day surgery (SDC) | payer OTHER ==
[2023-03-03 15:05] VITALS: BMI 21.9
[2023-03-04 16:24] VITALS: TEMP 98
[2023-03-04 17:01] VITALS: BP 146/69; PULSE 77; RESP 19
== END 2023-03-04 17:10 | disposition home or self-care (01) ==
LOC: JASU-ENDO 05:16
PROVIDERS: ATTEND Student in an Organized Health Care Education/Training Program
PROC: 0DC68ZZ Extirpation of Matter from Stomach, Via Natural or Artificial Opening Endoscopic (ICD-10-PCS; principal; 2023-03-04 14:30)
DX: Z43.1 Encounter for attention to gastrostomy (principal)

== ENCOUNTER 2023-04-05 09:43 | Emergency (ER) | payer OTHER ==
[2023-04-05 09:54] VITALS: BMI 21.1
[2023-04-05 13:44] LABS: EOS % 4.5 % (0-4.5); HEMATOCRIT 37.2 % (35.4-49); LYMPH % 37.2 % (8-40); MCHC 32.4 g/dl (32.0-35.9); MEAN CELL VOLUME 83.3 fl (80-96); MONO % 8.8 % (3.8-10.2); NEUT % 48.5 % (42.8-82.8); PLATELET COUNT 327 10^3/uL (134-434); RBC 4.46 M/mm3 (4.00-5.60); RDW 13.9 % (11.9-15.9); WHITE BLOOD COUNT 8.1 K/mm3 (4.0-10.0)
[2023-04-05 14:00] LABS: INR 1.01 (0.83-1.09); PROTHROMBIN TIME (PATIENT) 11.7 SEC (9.7-13.0)
[2023-04-05 14:04] LABS: CHLORIDE 108 mmol/L (98-107); POTASSIUM 4.9 mmol/L (3.5-5.1); SODIUM 141 mmol/L (136-145)
[2023-04-05 14:06] LABS: ALBUMIN 3.3 g/dl (3.4-5.0); ANION GAP 5 MMOL/L (8-16); CALCIUM 9.6 mg/dL (8.5-10.1); CO2 28 mmol/L (21-32); GLUCOSE,RANDOM 222 mg/dL (74-106)
[2023-04-05 14:07] LABS: BLOOD UREA NITROGEN 17.6 mg/dL (7-18)
[2023-04-05 14:09] LABS: CREATININE 1.1 mg/dL (0.55-1.3); SGOT/AST 11 U/L (15-37)
[2023-04-05 14:10] LABS: SGPT/ALT 12 U/L (13-61)
[2023-04-05 14:11] LABS: TOT PROT 7.7 g/dl (6.4-8.2)
[2023-04-05 14:12] LABS: ALK PHOS 82 U/L (45-117)
[2023-04-05 14:15] LABS: BILIRUBIN,TOTAL < 0.1 mg/dL (0.2-1)
[2023-04-05 14:47] LABS: EPI CELLS 1 /uL (0-25.1); HYALINE CASTS 0 /uL (0-3.1); URINE APPEARANCE CLOUDY; URINE BACTERIA 30 /uL (0-1359); URINE BILIRUBIN NEGATIVE (NEGATIVE); URINE COLOR YELLOW; URINE GLUCOSE (UA) TRACE (NEGATIVE); URINE KETONE NEGATIVE (NEGATIVE); URINE LEUK ESTERASE 3+ (NEGATIVE); URINE NITRITE NEGATIVE (NEGATIVE); URINE PROTEIN 1+ (NEGATIVE); URINE RBC 507 /uL (0-23.9); URINE UROBILINOGEN 0.2 mg/dL (0.2-1.0); URINE WBC 1156 /uL (0-25.8)
[2023-04-05] MEDS ORDERED: CEFTRIAXONE 1,000 MG in DEXTROSE 5%-WATER - 50 ML IVPB ONE (15:23)
[2023-04-05] MEDS ORDERED: CEFTRIAXONE 1 GM/50 ML BAG ONE (15:27)
[2023-04-05 16:53] VITALS: BP 148/72; PULSE 70; RESP 16; TEMP 98
== END 2023-04-05 16:54 | disposition home or self-care (01) ==
LOC: JER 09:43
DX: G51.0 Bell's palsy (principal); N39.0 Urinary tract infection, site not specified
CPT/HCPCS: 36415; 70450-TC; 80053; 81003; 85025; 85610; 87086; 96365; 99284-25

== ENCOUNTER 2023-04-27 19:15 | Inpatient (IN) | payer OTHER ==
[2023-04-27] MEDS ORDERED: ACETAMINOPHEN 1000 MG/100 ML BAG IVPB ONE (20:02)
[2023-04-27] MEDS ORDERED: ACETAMINOPHEN INJECTION 100 ML IVPB ONE (20:18)
[2023-04-27 21:07] LABS: BASO % 0.9 % (0-2.0); EOS % 2.6 % (0-4.5); HEMATOCRIT 38.7 % (35.4-49); HEMOGLOBIN 13.1 GM/dL (11.7-16.9); LYMPH % 25.1 % (8-40); MCH 27.7 pg (25.7-33.7); MCHC 33.9 g/dl (32.0-35.9); MEAN CELL VOLUME 81.9 fl (80-96); MEAN PLT VOLUME 7.4 fl (7.5-11.1); MONO % 8.9 % (3.8-10.2); NEUT % 62.5 % (42.8-82.8); PLATELET COUNT 341 10^3/uL (134-434); RBC 4.72 M/mm3 (4.00-5.60); RDW 14.6 % (11.9-15.9); WHITE BLOOD COUNT 10.3 K/mm3 (4.0-10.0)
[2023-04-27 21:15] LABS: INR 0.95 (0.83-1.09)
[2023-04-27 21:18] LABS: ACTIVATED PTT 29.3 SECONDS (25.2-36.5)
[2023-04-27 21:37] LABS: POTASSIUM 4.5 mmol/L (3.5-5.1)
[2023-04-27 21:39] LABS: BLOOD UREA NITROGEN 22.2 mg/dL (7-18); CALCIUM 9.6 mg/dL (8.5-10.1)
[2023-04-27 21:41] LABS: ALBUMIN 3.8 g/dl (3.4-5.0)
[2023-04-27 21:42] LABS: CREATININE 1.3 mg/dL (0.55-1.3)
[2023-04-27 21:45] LABS: BILIRUBIN,TOTAL 0.2 mg/dL (0.2-1); TOT PROT 8.3 g/dl (6.4-8.2)
[2023-04-28 01:43] LABS: EPI CELLS >36 /uL (0-25.1); HYALINE CASTS 1 /uL (0-3.1); URINE APPEARANCE TURBID; URINE BACTERIA 216 /uL (0-1359); URINE BILIRUBIN NEGATIVE (NEGATIVE); URINE COLOR DK YELLOW; URINE GLUCOSE (UA) NEGATIVE (NEGATIVE); URINE KETONE NEGATIVE (NEGATIVE); URINE LEUK ESTERASE 3+ (NEGATIVE); URINE NITRITE NEGATIVE (NEGATIVE); URINE PROTEIN 2+ (NEGATIVE); URINE UROBILINOGEN 0.2 mg/dL (0.2-1.0); URINE WBC 16682 /uL (0-25.8)
[2023-04-28] MEDS ORDERED: LINEZOLID 600 MG PREMIX BAG 600 MG in PREMIX 300 IVPB ONE (02:48)
[2023-04-28] MEDS ORDERED: LINEZOLID 600 MG PREMIX BAG 600 MG/300 ML BAG IVPB ONE (03:00)
[2023-04-28 03:30] LABS: EPI CELLS 15 /uL (0-25.1); HYALINE CASTS 1 /uL (0-3.1); URINE APPEARANCE TURBID; URINE BACTERIA 127 /uL (0-1359); URINE BILIRUBIN NEGATIVE (NEGATIVE); URINE COLOR YELLOW; URINE GLUCOSE (UA) NEGATIVE (NEGATIVE); URINE KETONE NEGATIVE (NEGATIVE); URINE LEUK ESTERASE 3+ (NEGATIVE); URINE NITRITE NEGATIVE (NEGATIVE); URINE PROTEIN 1+ (NEGATIVE); URINE RBC 250 /uL (0-23.9); URINE UROBILINOGEN 0.2 mg/dL (0.2-1.0); URINE WBC 6863 /uL (0-25.8)
[2023-04-28 03:39] LABS: YEAST NONE SEEN (NEGATIVE)
[2023-04-28] MEDS ORDERED: CYCLOBENZAPRINE HCL 5 MG TABLET PO PRN (04:29)
[2023-04-28] MEDS ORDERED: DOCUSATE SODIUM 100 MG CAPSULE (FP) PO PRN (04:32)
[2023-04-28] MEDS: SODIUM CHLORIDE 1,000 ML IV SCH (04:51)
[2023-04-28] MEDS ORDERED: METHOCARBAMOL 500 MG TABLET ONE ×2 (06:24→21:48)
[2023-04-28] MEDS: METHOCARBAMOL 500 MG TABLET PO PRN ×2 (06:25→21:56)
[2023-04-28 07:20] LABS: POTASSIUM 4.2 mmol/L (3.5-5.1)
[2023-04-28 07:24] LABS: CREATININE 1.2 mg/dL (0.55-1.3)
[2023-04-28] MEDS ORDERED: POLYETHYLENE GLYCOL (HEALTHYLAX) 3350 17 GM PACKET ONE (07:59)
[2023-04-28] MEDS ORDERED: POLYETHYLENE GLYCOL (HEALTHYLAX) 3350 17 GM PACKET PO ONE (08:00)
[2023-04-28] MEDS: INSULIN SLIDING SCALE (NOVOLOG) 1 VIAL SQ SCH ×4 (08:18→22:39)
[2023-04-28] MEDS ORDERED: ACETAMINOPHEN INJECTION 100 ML IVPB ONE (08:22)
[2023-04-28] MEDS: ACETAMINOPHEN 1000 MG/100 ML BAG IVPB PRN (08:30)
[2023-04-28] MEDS ORDERED: LINEZOLID 600 MG PREMIX BAG 600 MG in PREMIX 300 IVPB SCH (14:00)
[2023-04-28] MEDS ORDERED: LINEZOLID 600 MG PREMIX BAG 600 MG/300 ML BAG IVPB SCH (14:00)
[2023-04-28] MEDS ORDERED: CEFTRIAXONE 1 GM/50 ML BAG ONE (15:46)
[2023-04-28] MEDS: CEFTRIAXONE 1 GM in DEXTROSE 5%-WATER - 50 ML IVPB SCH (16:29)
[2023-04-29] MEDS ORDERED: ACETAMINOPHEN INJECTION 100 ML IVPB ONE (01:16)
[2023-04-29] MEDS: ACETAMINOPHEN 1000 MG/100 ML BAG IVPB PRN (02:14)
[2023-04-29] MEDS ORDERED: ACETAMINOPHEN 325 MG TABLET (FP) PO PRN (04:32)
[2023-04-29] MEDS ORDERED: METHOCARBAMOL 500 MG TABLET ONE (06:02)
[2023-04-29] MEDS: SODIUM CHLORIDE 1,000 ML IV SCH ×2 (06:15→16:58)
[2023-04-29] MEDS: INSULIN SLIDING SCALE (NOVOLOG) 1 VIAL SQ SCH ×4 (06:16→22:09)
[2023-04-29 06:57] LABS: BASO % 0.6 % (0-2.0); EOS % 3.1 % (0-4.5); HEMATOCRIT 37.3 % (35.4-49); HEMOGLOBIN 12.4 GM/dL (11.7-16.9); LYMPH % 31.7 % (8-40); MCH 27.8 pg (25.7-33.7); MCHC 33.3 g/dl (32.0-35.9); MEAN CELL VOLUME 83.6 fl (80-96); MONO % 7.7 % (3.8-10.2); NEUT % 56.9 % (42.8-82.8); PLATELET COUNT 323 10^3/uL (134-434); RBC 4.46 M/mm3 (4.00-5.60); RDW 14.4 % (11.9-15.9)
[2023-04-29 10:02] LABS: MAGNESIUM 2.2 mg/dL (1.8-2.4)
[2023-04-29 10:07] LABS: PHOSPHOROUS 3.9 mg/dL (2.5-4.9)
[2023-04-29] MEDS ORDERED: CEFTRIAXONE 1 GM/50 ML BAG ONE (11:08)
[2023-04-29] MEDS: CEFTRIAXONE 1 GM in DEXTROSE 5%-WATER - 50 ML IVPB SCH (11:23)
[2023-04-29] MEDS: traMADol HCL 50 MG TABLET PO PRN ×2 (11:30→22:05)
[2023-04-29 15:50] VITALS: BMI 23.3
[2023-04-29] MEDS ORDERED: INSULIN (NOVOLOG) ASPART 100 UNITS/ML 10ML VIAL ONE (16:27)
[2023-04-29 16:29] LABS: POTASSIUM 4.3 mmol/L (3.5-5.1)
[2023-04-29 16:32] LABS: BLOOD UREA NITROGEN 17.4 mg/dL (7-18)
[2023-04-29 16:35] LABS: CREATININE 1.1 mg/dL (0.55-1.3)
[2023-04-29 16:36] LABS: TOT PROT 6.9 g/dl (6.4-8.2)
[2023-04-29 16:38] LABS: BILIRUBIN,TOTAL 0.2 mg/dL (0.2-1)
[2023-04-30] MEDS: SODIUM CHLORIDE 1,000 ML IV SCH ×3 (03:55→16:29)
[2023-04-30] MEDS: INSULIN SLIDING SCALE (NOVOLOG) 1 VIAL SQ SCH ×4 (06:23→21:32)
[2023-04-30] MEDS: traMADol HCL 50 MG TABLET PO PRN ×2 (06:32→16:51)
[2023-04-30] MEDS: CEFTRIAXONE 1 GM in DEXTROSE 5%-WATER - 50 ML IVPB SCH (09:10)
[2023-04-30] MEDS ORDERED: PROPOFOL 20 ML ONE (11:20)
[2023-04-30] MEDS ORDERED: SUCCINYLCHOLINE CHLORIDE 200 MG/10 ML SYRINGE ONE (11:20)
[2023-04-30] MEDS ORDERED: PROMETHAZINE HCL 25 MG/1 ML VIAL IVPB PRN ×2 (14:22→14:30)
[2023-04-30] MEDS ORDERED: LACTATED RINGERS SOLUTION 1,000 ML IV SCH ×2 (14:30)
[2023-04-30] MEDS ORDERED: DOCUSATE SODIUM 100 MG CAPSULE (FP) PO PRN (14:30)
[2023-04-30] MEDS ORDERED: METHOCARBAMOL 500 MG TABLET PO PRN (14:30)
[2023-04-30] MEDS ORDERED: ACETAMINOPHEN 325 MG TABLET (FP) PO PRN (14:30)
[2023-04-30 16:33] VITALS: RESP 18
[2023-05-01] MEDS: traMADol HCL 50 MG TABLET PO PRN (02:46)
[2023-05-01] MEDS: SODIUM CHLORIDE 1,000 ML IV SCH (06:10)
[2023-05-01] MEDS: INSULIN SLIDING SCALE (NOVOLOG) 1 VIAL SQ SCH ×2 (06:37→10:55)
[2023-05-01 08:16] LABS: BASO % 0.5 % (0-2.0); EOS % 2.2 % (0-4.5); HEMOGLOBIN 11.2 GM/dL (11.7-16.9); LYMPH % 26.6 % (8-40); MCH 27.4 pg (25.7-33.7); MCHC 32.8 g/dl (32.0-35.9); MEAN CELL VOLUME 83.5 fl (80-96); MEAN PLT VOLUME 7.9 fl (7.5-11.1); MONO % 8.4 % (3.8-10.2); NEUT % 62.3 % (42.8-82.8); PLATELET COUNT 271 10^3/uL (134-434); RBC 4.08 M/mm3 (4.00-5.60); RDW 14.2 % (11.9-15.9); WHITE BLOOD COUNT 8.5 K/mm3 (4.0-10.0)
[2023-05-01 08:20] LABS: CALCIUM 8.6 mg/dL (8.5-10.1)
[2023-05-01 08:21] LABS: ALBUMIN 2.9 g/dl (3.4-5.0); BLOOD UREA NITROGEN 17.2 mg/dL (7-18)
[2023-05-01 08:26] LABS: BILIRUBIN,TOTAL 0.5 mg/dL (0.2-1); TOT PROT 6.4 g/dl (6.4-8.2)
[2023-05-01] MEDS ORDERED: CEFTRIAXONE 1 GM in DEXTROSE 5%-WATER - 50 ML IVPB SCH (10:00)
[2023-05-01 10:05] VITALS: BP 134/72; PULSE 87; TEMP 97.8
== END 2023-05-01 11:20 | disposition home or self-care (01) | DRG 661 ==
LOC: JER 19:15 → JERBED 04-28 02:59 → OBSVTOIN 04-28 02:59 → J6S 04-29 14:12
PROVIDERS: ADMIT Internal Medicine; ATTEND Family Medicine
PROC: 0T768DZ Dilation of Right Ureter with Intraluminal Device, Via Natural or Artificial Opening Endoscopic (ICD-10-PCS; principal; 2023-04-30 15:30)
DX: N13.6 Pyonephrosis (principal); I10 Essential (primary) hypertension; E78.5 Hyperlipidemia, unspecified; E11.9 Type 2 diabetes mellitus without complications; M54.6 Pain in thoracic spine; K21.9 Gastro-esophageal reflux disease without esophagitis; K59.00 Constipation, unspecified; N40.0 Benign prostatic hyperplasia without lower urinary tract symptoms; K76.0 Fatty (change of) liver, not elsewhere classified
CPT/HCPCS: 36415; 71045-TC-FY; 72128-TC; 74177-TC; 76000-TC-FY; 80048; 80053; 80061; 81003; 82962; 83605; 83735; 84100; 84484; 85025; 85610; 85730; 87086; 93005; 93010; 94760; 97116-GP; 97162-GP; 99285-25; C2617; Q9967

== ENCOUNTER 2023-05-18 15:32 | Emergency (ER) | payer OTHER ==
[2023-05-18 15:40] VITALS: PULSE 88; RESP 18; TEMP 98.4; BMI 21.9
[2023-05-18] MEDS ORDERED: SODIUM CHLORIDE 0.9% 500 ML INFUS.BAG IV ONE (16:29)
[2023-05-18 17:03] LABS: BASO % 1.3 % (0-2.0); EOS % 2.9 % (0-4.5); HEMATOCRIT 33.9 % (35.4-49); HEMOGLOBIN 11.4 GM/dL (11.7-16.9); LYMPH % 20.1 % (8-40); MCHC 33.7 g/dl (32.0-35.9); MEAN PLT VOLUME 7.5 fl (7.5-11.1); MONO % 8.2 % (3.8-10.2); NEUT % 67.5 % (42.8-82.8); PLATELET COUNT 314 10^3/uL (134-434); RBC 4.08 M/mm3 (4.00-5.60); RDW 15.1 % (11.9-15.9); WHITE BLOOD COUNT 6.8 K/mm3 (4.0-10.0)
[2023-05-18 17:06] LABS: EPI CELLS 13 /uL (0-25.1); HYALINE CASTS 3 /uL (0-3.1); URINE APPEARANCE TURBID; URINE BACTERIA 107 /uL (0-1359); URINE BILIRUBIN NEGATIVE (NEGATIVE); URINE COLOR YELLOW; URINE GLUCOSE (UA) TRACE (NEGATIVE); URINE KETONE NEGATIVE (NEGATIVE); URINE LEUK ESTERASE 3+ (NEGATIVE); URINE NITRITE NEGATIVE (NEGATIVE); URINE PROTEIN 3+ (NEGATIVE); URINE RBC 5478 /uL (0-23.9); URINE WBC 6220 /uL (0-25.8)
[2023-05-18 17:07] VITALS: BP 130/69
[2023-05-18] MEDS ORDERED: ACETAMINOPHEN 1000 MG/100 ML BAG IVPB ONE (17:11)
[2023-05-18 17:21] LABS: POTASSIUM 4.4 mmol/L (3.5-5.1)
[2023-05-18 17:23] LABS: ALBUMIN 3.2 g/dl (3.4-5.0); BLOOD UREA NITROGEN 24.8 mg/dL (7-18)
[2023-05-18] MEDS ORDERED: ACETAMINOPHEN INJECTION 100 ML IVPB ONE (17:24)
[2023-05-18 17:26] LABS: CREATININE 1.8 mg/dL (0.55-1.3)
[2023-05-18 17:28] LABS: BILIRUBIN,TOTAL 0.3 mg/dL (0.2-1); TOT PROT 7.2 g/dl (6.4-8.2)
[2023-05-18 18:28] LABS: YEAST PRESENT (NEGATIVE)
== END 2023-05-18 18:25 | disposition left against medical advice (07) ==
LOC: JER 15:32
PROC: 3E033NZ Introduction of Analgesics, Hypnotics, Sedatives into Peripheral Vein, Percutaneous Approach (ICD-10-PCS; principal; 2023-05-18)
DX: R06.02 Shortness of breath (principal); R42 Dizziness and giddiness; N17.9 Acute kidney failure, unspecified; E11.9 Type 2 diabetes mellitus without complications; M25.511 Pain in right shoulder; M25.512 Pain in left shoulder
CPT/HCPCS: 36415; 71045-TC-FY; 80053; 81003; 83735; 83880; 84484; 85025; 87086; 93005; 93010; 96374; 99285-25

== ENCOUNTER 2023-08-21 04:24 | Day surgery (SDC) | payer OTHER ==
[2023-08-21 11:47] VITALS: BMI 21.1
[2023-08-21] MEDS ORDERED: DEXAMETHASONE SOD PHOSPHATE 4 MG/1 ML VIAL ONE (13:01)
[2023-08-21] MEDS ORDERED: KETOROLAC TROMETHAMINE 30 MG/1 ML VIAL ONE (13:01)
[2023-08-21] MEDS ORDERED: ONDANSETRON 4 MG/2 ML VIAL ONE (13:01)
[2023-08-21] MEDS ORDERED: PROPOFOL 40 ML ONE (13:02)
[2023-08-21] MEDS ORDERED: FENTANYL CITRATE/PF 50 MCG/ML VIAL ONE (13:02)
[2023-08-21] MEDS ORDERED: MIDAZOLAM HCL 2 MG/2 ML SINGLE DOSE VIAL ONE (13:08)
[2023-08-21] MEDS ORDERED: LIDOCAINE HCL 2% JELLY 11 ML TP ONE (13:13)
[2023-08-21] MEDS ORDERED: ceFAZolin SODIUM 1 GM VIAL IVPB ONE (13:15)
[2023-08-21] MEDS ORDERED: LIDOCAINE HCL 2% JELLY 10 ML CARTRIDGE TP ONE (13:29)
[2023-08-21] MEDS ORDERED: oxyCODONE HCL 5 MG TABLET PO PRN (13:33)
[2023-08-21] MEDS ORDERED: ONDANSETRON 4 MG/2 ML VIAL IVPUSH PRN (13:33)
[2023-08-21] MEDS ORDERED: LACTATED RINGERS SOLUTION 1,000 ML IV SCH (13:45)
[2023-08-21 15:57] VITALS: RESP 20; TEMP 97.9
[2023-08-21 18:25] VITALS: BP 163/85; PULSE 65
== END 2023-08-21 16:40 | disposition home or self-care (01) ==
LOC: JASU-SURG 04:24
PROVIDERS: ATTEND Urology
PROC: 0TP98DZ Removal of Intraluminal Device from Ureter, Via Natural or Artificial Opening Endoscopic (ICD-10-PCS; principal; 2023-08-21 13:00)
DX: N20.1 Calculus of ureter (principal)
CPT/HCPCS: 82962; 88300-TC; 94760

== ENCOUNTER 2024-05-14 14:32 | Emergency (ER) | payer OTHER ==
[2024-05-14 15:10] VITALS: BP 147/81; PULSE 78; RESP 18; TEMP 98.4; BMI 22.7
[2024-05-14] MEDS ORDERED: FAMOTIDINE 20 MG/50 ML IVPB 20 MG/50 ML MG IVPB ONE (16:52)
[2024-05-14] MEDS ORDERED: ACETAMINOPHEN INJECTION 100 ML ONE (16:52)
[2024-05-14] MEDS: ACETAMINOPHEN 1000 MG/100 ML BAG IVPB ONE (16:55)
[2024-05-14 16:58] LABS: BASO % 0.6 % (0-2.0); EOS % 1.7 % (0-4.5); HEMATOCRIT 39.7 % (35.4-49); HEMOGLOBIN 13.7 GM/dL (11.7-16.9); LYMPH % 31.2 % (8-40); MCH 29.8 pg (25.7-33.7); MCHC 34.5 g/dl (32.0-35.9); MEAN CELL VOLUME 86.2 fl (80-96); MEAN PLT VOLUME 8.1 fl (7.5-11.1); MONO % 10.6 % (3.8-10.2); NEUT % 55.9 % (42.8-82.8); PLATELET COUNT 218 10^3/uL (134-434); RDW 13.4 % (11.9-15.9); WHITE BLOOD COUNT 6.6 K/mm3 (4.0-10.0)
[2024-05-14 16:59] LABS: URINE APPEARANCE CLEAR; URINE BILIRUBIN NEGATIVE (NEGATIVE); URINE COLOR YELLOW; URINE GLUCOSE (UA) 3+ (NEGATIVE); URINE KETONE NEGATIVE (NEGATIVE); URINE LEUK ESTERASE NEGATIVE (NEGATIVE); URINE NITRITE NEGATIVE (NEGATIVE); URINE PROTEIN NEGATIVE (NEGATIVE); URINE UROBILINOGEN 0.2 mg/dL (0.2-1.0)
[2024-05-14 17:19] LABS: POTASSIUM 4.2 mmol/L (3.5-5.1)
[2024-05-14] MEDS: FAMOTIDINE 20 MG/50 ML IVPB 20 MG/50 ML MG IVPB ONE (17:20)
[2024-05-14 17:22] LABS: ALBUMIN 3.5 g/dl (3.4-5.0); CALCIUM 8.9 mg/dL (8.5-10.1)
[2024-05-14 17:25] LABS: CREATININE 1.2 mg/dL (0.55-1.3)
[2024-05-14 17:27] LABS: BILIRUBIN,TOTAL 0.4 mg/dL (0.2-1)
== END 2024-05-14 19:20 | disposition home or self-care (01) ==
LOC: JER 14:32
PROC: 3E033GC Introduction of Other Therapeutic Substance into Peripheral Vein, Percutaneous Approach (ICD-10-PCS; principal; 2024-05-14)
PROC: 3E033NZ Introduction of Analgesics, Hypnotics, Sedatives into Peripheral Vein, Percutaneous Approach (ICD-10-PCS; 2024-05-14)
DX: R10.13 Epigastric pain (principal); G89.29 Other chronic pain; Z20.822 Contact with and (suspected) exposure to COVID-19
CPT/HCPCS: 0241U-QW; 36415; 71046-TC-FY; 74177-TC; 80053; 81003; 83605; 83690; 85025; 87086; 96365; 96375; 99285-25; J0131; Q9967

== ENCOUNTER 2025-02-10 12:09 | Emergency (ER) | payer OTHER ==
[2025-02-10 12:24] VITALS: BP 127/81; PULSE 87; RESP 16; TEMP 97.6; BMI 30.2
[2025-02-10] MEDS ORDERED: CEPHALEXIN MONOHYDRATE 500 MG CAPSULE (UD) ONE (12:52)
[2025-02-10] MEDS: CEPHALEXIN MONOHYDRATE 500 MG CAPSULE (UD) PO ONE (12:55)
== END 2025-02-10 13:02 | disposition home or self-care (01) ==
LOC: JER 12:09
DX: L03.116 Cellulitis of left lower limb (principal); M79.662 Pain in left lower leg
CPT/HCPCS: 99283-25

== ENCOUNTER 2025-03-31 17:06 | Emergency (ER) | payer OTHER ==
[2025-03-31 17:24] VITALS: BP 140/70; PULSE 72; RESP 20; TEMP 98; BMI 23.5
== END 2025-03-31 18:13 | disposition home or self-care (01) ==
LOC: JER 17:06
DX: S80.861A Insect bite (nonvenomous), right lower leg, initial encounter (principal); S80.862A Insect bite (nonvenomous), left lower leg, initial encounter; W57.XXXA Bitten or stung by nonvenomous insect and other nonvenomous arthropods, initial encounter
CPT/HCPCS: 99283-25